=== PATIENT | female | born 1965 | race Caucasian/White ===

== ENCOUNTER 2023-06-10 13:06 | Inpatient (IN) | payer SELFPAY ==
[~2023-06-10] VITALS: Ht 167.6 cm; Wt 72.0 kg
[2023-06-10] MEDS ORDERED: metoclopramide 5 mg/ml inj IV ONE (13:45)
[2023-06-10] MEDS ORDERED: diphenhydrAMINE 50 mg/ml inj IV ONE (13:45)
[2023-06-10] MEDS ORDERED: normal saline 1000ml 1,000 ML IV ONE ×2 (14:00→14:15)
[2023-06-10] MEDS ORDERED: LORazepam 2 mg/ml vial IV ONE (14:00)
[2023-06-10] MEDS ORDERED: normal saline 1000ML IV soln IVB ONE ×2 (14:35)
[2023-06-10 14:56] LABS: BASOPHILS % (AUTO) 0.3 % (0-1); EOSINOPHILS % (AUTO) 0 % (0-6); HEMATOCRIT 36.9 % (35.0-45.0); HEMOGLOBIN 12.5 g/dl (12.0-16.0); LYMPHOCYTES # (AUTO) 0.2 X10'3 (1.1-4.8); LYMPHOCYTES % (AUTO) 3.2 % (21-51); MEAN CORPUSCULAR HEMOGLOBIN 34.3 PG (27.0-31.0); MEAN CORPUSCULAR HGB CONC 33.9 g/dL (33.0-36.5); MONOCYTES # (AUTO) 0.4 X10'3 (0-0.9); MONOCYTES % (AUTO) 6.2 % (2-12); NEUTROPHILS # (AUTO) 5.4 X10'3 (1.8-7.7); NEUTROPHILS % (AUTO) 90.3 % (42-75); PLATELET COUNT 131 X10'3 (140-440); RED BLOOD COUNT 3.66 X10'6 (4.20-5.60); RED CELL DISTRIBUTION WIDTH 18.2 % (11.5-14.5)
[2023-06-10] MEDS ORDERED: ondansetron/PF 4mg/2ml inj IV ONE (15:05)
[2023-06-10] MEDS: LORazepam 2 mg/ml vial IV PRN ×4 (15:15→19:25)
[2023-06-10 15:25] LABS: ALANINE AMINOTRANSFERASE 461 U/L (12-78); ALBUMIN 3.6 G/DL (3.4-5.0); ALKALINE PHOSPHATASE 197 IU/L (46-116); ANION GAP 18 (8-16); ASPARTATE AMINO TRANSFERASE 766 U/L (10-37); BILIRUBIN,TOTAL 1.9 MG/DL (0.1-1.0); BLOOD UREA NITROGEN 14 MG/DL (7-18); BUN/CREATININE RATIO 9.9 (10.0-20.0); CHLORIDE 105 MMOL/L (99-107); CREATININE 1.42 MG/DL (0.40-0.90); GLUCOSE 113 MG/DL (70-104); POTASSIUM 3.3 MMOL/L (3.5-5.1); SODIUM 142 MMOL/L (135-145); TOTAL CARBON DIOXIDE 19.2 MMOL/L (24-32); TOTAL PROTEIN 7.2 G/DL (6.4-8.2); eCRCL 40 ML/MIN; eGFR 38 ML/MIN
[2023-06-10 15:38] LABS: ETHANOL < 10 MG/DL (<10); PRO BRAIN NATRIURETIC PEPTIDE 714 PG/ML (0-125)
[2023-06-10] MEDS ORDERED: phenobarbital inj 130 MG in normal saline 100ml IV soln 99 ML IV ONE (17:15)
[2023-06-10] MEDS ORDERED: magnesium 4gm in 100ml NS 100 ML IV PRN (17:45)
[2023-06-10] MEDS ORDERED: docusate sod 100mg capsule PO PRN (17:45)
[2023-06-10] MEDS ORDERED: ondansetron/PF 4mg/2ml inj IV PRN (17:45)
[2023-06-10] MEDS ORDERED: cloNIDine 0.1 mg tablet PO PRN (17:45)
[2023-06-10] MEDS ORDERED: dicyclomine 10 MG capsule PO PRN (17:45)
[2023-06-10] MEDS ORDERED: mag hydrox/Alum hydrox/simeth 30ml oral suspension PO PRN (17:45)
[2023-06-10] MEDS ORDERED: magnesium hydroxide 30ml (MOM) UD suspension PO PRN (17:45)
[2023-06-10] MEDS ORDERED: acetaminophen 325mg tablet PO PRN (17:45)
[2023-06-10] MEDS ORDERED: potassium Cl 20 mEq SR tablet PO PRN ×2 (17:45)
[2023-06-10] MEDS ORDERED: PERFLUTREN PROTEIN-A MICROSPHR (Optison) 0.22 MG/ML 3ML VIAL IV ONE (18:30)
[2023-06-10] MEDS: normal saline 1000ml 1,000 ML IV SCH (18:56)
[2023-06-10] MEDS: carVEDilol 3.125mg tablet PO SCH ×2 (20:00→20:56)
[2023-06-10] MEDS: chlordiazePOXIDE 25mg capsule PO PRN (20:36)
[2023-06-10] MEDS: thiamine 100mg/ml 2ml inj. IV SCH (20:37)
[2023-06-10] MEDS ORDERED: thiamine 100mg/ml 2ml inj. IV SCH (21:00)
[2023-06-11] MEDS: hydrALAZINE 20mg/ml inj. IV PRN (02:02)
[2023-06-11] MEDS: LORazepam 2 mg/ml vial IV PRN ×4 (02:33→22:05)
[2023-06-11] MEDS: normal saline 1000ml 1,000 ML IV SCH ×2 (05:51→12:03)
[2023-06-11 07:04] LABS: BASOPHILS % (AUTO) 0.3 % (0-1); EOSINOPHILS % (AUTO) 0.4 % (0-6); HEMATOCRIT 34.5 % (35.0-45.0); HEMOGLOBIN 11.9 g/dl (12.0-16.0); LYMPHOCYTES # (AUTO) 0.7 X10'3 (1.1-4.8); LYMPHOCYTES % (AUTO) 19.7 % (21-51); MEAN CORPUSCULAR HEMOGLOBIN 34.4 PG (27.0-31.0); MEAN CORPUSCULAR HGB CONC 34.3 g/dL (33.0-36.5); MEAN CORPUSCULAR VOLUME 100.1 FL (78-98); MEAN PLATELET VOLUME 8.2 FL (7.4-10.4); MONOCYTES # (AUTO) 0.4 X10'3 (0-0.9); MONOCYTES % (AUTO) 10.6 % (2-12); NEUTROPHILS # (AUTO) 2.4 X10'3 (1.8-7.7); PLATELET COUNT 89 X10'3 (140-440); RED BLOOD COUNT 3.45 X10'6 (4.20-5.60); RED CELL DISTRIBUTION WIDTH 18.6 % (11.5-14.5); WHITE BLOOD COUNT 3.5 X10'3 (4.5-11.0)
[2023-06-11 07:41] LABS: % IRON SATURATION 69 % (11-46); IRON 178 UG/DL (49-151); TOTAL IRON BINDING CAPACITY 259 UG/DL (259-388)
[2023-06-11] MEDS ORDERED: atenolol 50mg tablet PO SCH (08:00)
[2023-06-11] MEDS ORDERED: multivitamins, therapeutics tablet PO SCH (08:00)
[2023-06-11 08:07] LABS: PROTHROMBIN TIME 10.9 SECONDS (9.0-12.0)
[2023-06-11 08:21] LABS: ALANINE AMINOTRANSFERASE 379 U/L (12-78); ALBUMIN 3.4 G/DL (3.4-5.0); ALKALINE PHOSPHATASE 181 IU/L (46-116); AMYLASE 63 U/L (25-115); ANION GAP 12 (8-16); ASPARTATE AMINO TRANSFERASE 745 U/L (10-37); BILIRUBIN,TOTAL 2.3 MG/DL (0.1-1.0); BLOOD UREA NITROGEN 11 MG/DL (7-18); BUN/CREATININE RATIO 10.6 (10.0-20.0); CALCIUM 8.2 MG/DL (8.5-10.1); CHLORIDE 103 MMOL/L (99-107); CREATININE 1.04 MG/DL (0.40-0.90); GLUCOSE 83 MG/DL (70-104); LIPASE 87 U/L (16-77); MAGNESIUM 1.1 MG/DL (1.5-2.4); PHOSPHORUS 2.1 MG/DL (2.3-4.5); SODIUM 139 MMOL/L (135-145); TOTAL CARBON DIOXIDE 24.5 MMOL/L (24-32); TOTAL PROTEIN 6.8 G/DL (6.4-8.2); eCRCL 55 ML/MIN; eGFR 54 ML/MIN
[2023-06-11 08:56] LABS: POTASSIUM 2.6 MMOL/L (3.5-5.1)
[2023-06-11 08:58] LABS: FERRITIN 1967 NG/ML (8-252)
[2023-06-11] MEDS: thiamine 100mg/ml 2ml inj. IV SCH ×3 (09:20→20:18)
[2023-06-11] MEDS: chlordiazePOXIDE 25mg capsule PO PRN (09:21)
[2023-06-11] MEDS: lisinopril 10 MG tablet PO SCH (09:21)
[2023-06-11] MEDS: magnesium Cl slow-release 64mg tablet PO PRN ×2 (09:21→20:19)
[2023-06-11] MEDS: multivitamins, therapeutics tablet PO SCH (09:22)
[2023-06-11] MEDS: carVEDilol 3.125mg tablet PO SCH ×2 (09:22→20:17)
[2023-06-11] MEDS: NIFEdipine XL 30mg tablet PO SCH (09:22)
[2023-06-11] MEDS: folic acid 1mg/0.2ml inj IV SCH (10:24)
[2023-06-11] MEDS: duloxetine 30mg CAPSULE.DR PO SCH (10:25)
[2023-06-11] MEDS: potassium Cl 40MEQ/1/2NS 520ml 520 ML IV PRN ×2 (12:02→21:59)
[2023-06-11] MEDS ORDERED: NALT50TA PO (12:18)
[2023-06-11] MEDS ORDERED: HYDR12.55 PO (12:18)
[2023-06-11] MEDS ORDERED: DULO60CA65 PO (12:18)
[2023-06-11] MEDS ORDERED: QUET50TA24 PO (12:18)
[2023-06-11] MEDS ORDERED: BUPR300T86 PO (12:18)
[2023-06-11] MEDS ORDERED: CARV3.122 PO (12:18)
[2023-06-11] MEDS ORDERED: LISI20TA28 PO (12:18)
[2023-06-11] MEDS ORDERED: NIFE-34 PO (12:18)
[2023-06-11] MEDS ORDERED: folic acid 1mg/0.2ml inj IV SCH (15:05)
[2023-06-11] MEDS ORDERED: dextrose 50%-water 50ml dispensing syringe IV PRN (19:30)
[2023-06-11] MEDS ORDERED: haloperidol lactate 5mg/ml inj IM PRN (19:30)
[2023-06-11 20:18] VITALS: BP 147/88; PULSE 87; RESP 16; TEMP 98.3; O2SAT 99
[2023-06-11 22:00] VITALS: BP 177/101; PULSE 77; RESP 14; TEMP 97.8; O2SAT 96
[2023-06-11] MEDS: chlordiazePOXIDE 25mg capsule PO SCH (23:03)
[2023-06-12] MEDS: LORazepam 2 mg/ml vial IV PRN ×5 (00:21→23:16)
[2023-06-12] MEDS: haloperidol 5mg tablet PO PRN (01:17)
[2023-06-12] MEDS: normal saline 1000ml 1,000 ML IV SCH ×2 (01:51→11:51)
[2023-06-12 06:00] VITALS: BP 134/77; PULSE 68; RESP 16; TEMP 97.5; O2SAT 91
[2023-06-12 09:51] LABS: INR 1.1 INR; PROTHROMBIN TIME 11.5 SECONDS (9.0-12.0)
[2023-06-12 09:55] LABS: BASOPHILS % (AUTO) 0.7 % (0-1); EOSINOPHILS # (AUTO) 0.1 X10'3 (0-0.9); EOSINOPHILS % (AUTO) 2.1 % (0-6); HEMATOCRIT 33.2 % (35.0-45.0); HEMOGLOBIN 11.2 g/dl (12.0-16.0); LYMPHOCYTES % (AUTO) 28.9 % (21-51); MEAN CORPUSCULAR HEMOGLOBIN 34.3 PG (27.0-31.0); MEAN CORPUSCULAR HGB CONC 33.8 g/dL (33.0-36.5); MEAN CORPUSCULAR VOLUME 101.4 FL (78-98); MEAN PLATELET VOLUME 9.7 FL (7.4-10.4); MONOCYTES # (AUTO) 0.3 X10'3 (0-0.9); MONOCYTES % (AUTO) 7.5 % (2-12); NEUTROPHILS % (AUTO) 60.8 % (42-75); PLATELET COUNT 72 X10'3 (140-440); RED BLOOD COUNT 3.28 X10'6 (4.20-5.60); RED CELL DISTRIBUTION WIDTH 18.8 % (11.5-14.5); WHITE BLOOD COUNT 3.3 X10'3 (4.5-11.0)
[2023-06-12 10:05] LABS: ALANINE AMINOTRANSFERASE 293 U/L (12-78); ALBUMIN/GLOBULIN RATIO 0.9 (1.1-1.5); ALKALINE PHOSPHATASE 157 IU/L (46-116); AMYLASE 47 U/L (25-115); ANION GAP 12 (8-16); ASPARTATE AMINO TRANSFERASE 354 U/L (10-37); BILIRUBIN,TOTAL 1.9 MG/DL (0.1-1.0); BLOOD UREA NITROGEN 8 MG/DL (7-18); BUN/CREATININE RATIO 8.6 (10.0-20.0); CALCIUM 7.9 MG/DL (8.5-10.1); CHLORIDE 102 MMOL/L (99-107); CREATININE 0.93 MG/DL (0.40-0.90); GLUCOSE 153 MG/DL (70-104); LIPASE 68 U/L (16-77); MAGNESIUM 1.2 MG/DL (1.5-2.4); PHOSPHORUS 2.4 MG/DL (2.3-4.5); SODIUM 136 MMOL/L (135-145); TOTAL CARBON DIOXIDE 22.5 MMOL/L (24-32); TOTAL PROTEIN 6.3 G/DL (6.4-8.2); eCRCL 61 ML/MIN; eGFR 62 ML/MIN
[2023-06-12 10:10] LABS: POTASSIUM 2.8 MMOL/L (3.5-5.1)
[2023-06-12 10:45] VITALS: RESP 18; O2SAT 99
[2023-06-12] MEDS ORDERED: bisacodyl 10mg suppository rectal RC PRN (10:50)
[2023-06-12] MEDS ORDERED: potassium Cl 20 mEq SR tablet PO PRN (10:50)
[2023-06-12] MEDS ORDERED: magnesium hydroxide 30ml (MOM) UD suspension PO PRN (10:50)
[2023-06-12] MEDS ORDERED: potassium Cl 40MEQ/1/2NS 520ml 520 ML IV PRN (10:50)
[2023-06-12] MEDS ORDERED: magnesium 2GM in 50ml NS 50 ML IV PRN (10:50)
[2023-06-12] MEDS: magnesium Cl slow-release 64mg tablet PO PRN ×2 (11:00→17:32)
[2023-06-12] MEDS: potassium Cl 20 mEq SR tablet PO PRN ×3 (11:00→20:25)
[2023-06-12] MEDS: carVEDilol 3.125mg tablet PO SCH ×2 (11:00→20:29)
[2023-06-12] MEDS: folic acid 1mg/0.2ml inj IV SCH (11:00)
[2023-06-12] MEDS: multivitamins, therapeutics tablet PO SCH (11:00)
[2023-06-12] MEDS: chlordiazePOXIDE 25mg capsule PO SCH ×3 (11:01→20:28)
[2023-06-12] MEDS: NIFEdipine XL 30mg tablet PO SCH (11:01)
[2023-06-12] MEDS: thiamine 100mg/ml 2ml inj. IV SCH ×3 (11:01→21:35)
[2023-06-12] MEDS: duloxetine 30mg CAPSULE.DR PO SCH (11:02)
[2023-06-12] MEDS: lisinopril 10 MG tablet PO SCH (11:02)
[2023-06-12 11:48] LABS: BILIRUBIN,URINE NEGATIVE (Neg); CLARITY,URINE CLEAR (Clear); COLOR,URINE YELLOW (Yellow); GLUCOSE, URINE NEGATIVE (Neg); KETONES,URINE NEGATIVE (Neg); LEUKOCYTE ESTERASE ,URINE NEGATIVE (Neg); NITRITES, URINE NEGATIVE (Neg); OCCULT BLOOD,URINE NEGATIVE (Neg); PROTEIN,URINE NEGATIVE (Neg)
[2023-06-12 11:53] LABS: UA COLLECTION TYPE NON-SPECIFIED
[2023-06-12] MEDS: hydrALAZINE 20mg/ml inj. IV PRN (17:32)
[2023-06-12] MEDS: HYDROcodone/acetaminophen 10/325mg tab PO PRN (17:39)
[2023-06-12 18:00] VITALS: BP 168/100; PULSE 89; RESP 18; TEMP 98.5; O2SAT 99
[2023-06-12 20:00] VITALS: RESP 18; O2SAT 90
[2023-06-12] MEDS: K and/or MAG REPLACEMENT MC SCH (20:00)
[2023-06-12] MEDS: buPROPion SR 150mg tablet PO SCH (20:25)
[2023-06-12] MEDS: QUEtiapine 25mg tablet PO SCH (20:28)
[2023-06-12 22:00] VITALS: BP 120/91; PULSE 82; RESP 17; TEMP 97.8; O2SAT 97
[2023-06-13] VITALS (8 sets, daily range): BP systolic 129–154; BP diastolic 75–85; PULSE 59–88; RESP 17–22; TEMP 97.5–97.9; O2SAT 97–98
[2023-06-13] MEDS: normal saline 1000ml 1,000 ML IV SCH ×3 (00:51→20:13)
[2023-06-13 06:07] LABS: HEMATOCRIT 30.6 % (35.0-45.0); HEMOGLOBIN 10.3 g/dl (12.0-16.0); MEAN CORPUSCULAR VOLUME 104.1 FL (78-98); RED BLOOD COUNT 2.94 X10'6 (4.20-5.60); WHITE BLOOD COUNT 3.6 X10'3 (4.5-11.0)
[2023-06-13 06:08] LABS: EOSINOPHILS # (AUTO) 0.1 X10'3 (0-0.9); EOSINOPHILS % (AUTO) 1.9 % (0-6); LYMPHOCYTES % (AUTO) 28.6 % (21-51); MEAN CORPUSCULAR HEMOGLOBIN 34.9 PG (27.0-31.0); MEAN CORPUSCULAR HGB CONC 33.5 g/dL (33.0-36.5); MEAN PLATELET VOLUME 9.2 FL (7.4-10.4); MONOCYTES # (AUTO) 0.3 X10'3 (0-0.9); NEUTROPHILS # (AUTO) 2.1 X10'3 (1.8-7.7); NEUTROPHILS % (AUTO) 59.5 % (42-75); PLATELET COUNT 77 X10'3 (140-440); RED CELL DISTRIBUTION WIDTH 20.1 % (11.5-14.5)
[2023-06-13 06:15] LABS: PROTHROMBIN TIME 10.9 SECONDS (9.0-12.0)
[2023-06-13 06:33] LABS: ALANINE AMINOTRANSFERASE 208 U/L (12-78); ALBUMIN 2.8 G/DL (3.4-5.0); ALKALINE PHOSPHATASE 140 IU/L (46-116); AMYLASE 49 U/L (25-115); ANION GAP 10 (8-16); ASPARTATE AMINO TRANSFERASE 176 U/L (10-37); BLOOD UREA NITROGEN 11 MG/DL (7-18); BUN/CREATININE RATIO 17.2 (10.0-20.0); CALCIUM 7.8 MG/DL (8.5-10.1); CHLORIDE 108 MMOL/L (99-107); CREATININE 0.64 MG/DL (0.40-0.90); GLUCOSE 80 MG/DL (70-104); LIPASE 65 U/L (16-77); MAGNESIUM 1.5 MG/DL (1.5-2.4); PHOSPHORUS 2.5 MG/DL (2.3-4.5); POTASSIUM 3.7 MMOL/L (3.5-5.1); SODIUM 139 MMOL/L (135-145); TOTAL CARBON DIOXIDE 20.6 MMOL/L (24-32); TOTAL PROTEIN 5.7 G/DL (6.4-8.2); eCRCL 89 ML/MIN; eGFR > 90 ML/MIN
[2023-06-13] MEDS: K and/or MAG REPLACEMENT MC SCH ×2 (08:00→20:00)
[2023-06-13] MEDS: folic acid 1mg/0.2ml inj IV SCH (08:46)
[2023-06-13] MEDS: multivitamins, therapeutics tablet PO SCH (08:47)
[2023-06-13] MEDS: thiamine 100mg/ml 2ml inj. IV SCH ×2 (08:47→13:41)
[2023-06-13] MEDS: duloxetine 30mg CAPSULE.DR PO SCH (08:48)
[2023-06-13] MEDS: lisinopril 10 MG tablet PO SCH (08:48)
[2023-06-13] MEDS: chlordiazePOXIDE 25mg capsule PO SCH ×3 (08:48→20:12)
[2023-06-13] MEDS: NIFEdipine XL 30mg tablet PO SCH (08:48)
[2023-06-13] MEDS: buPROPion SR 150mg tablet PO SCH ×2 (08:48→20:12)
[2023-06-13] MEDS: carVEDilol 3.125mg tablet PO SCH ×2 (08:48→20:12)
[2023-06-13] MEDS: LORazepam 2 mg/ml vial IV PRN ×4 (09:01→16:39)
[2023-06-13] MEDS: HYDROcodone/acetaminophen 10/325mg tab PO PRN ×3 (11:59→23:46)
[2023-06-13] MEDS ORDERED: LORazepam 2 mg/ml vial IV PRN (19:30)
[2023-06-13] MEDS: QUEtiapine 25mg tablet PO SCH (20:12)
[2023-06-13] MEDS: LORazepam 1 MG tablet PO PRN (23:47)
[2023-06-14] MEDS: normal saline 1000ml 1,000 ML IV SCH ×3 (00:10→23:48)
[2023-06-14] MEDS: LORazepam 1 MG tablet PO PRN ×6 (02:17→20:43)
[2023-06-14] MEDS: HYDROcodone/acetaminophen 10/325mg tab PO PRN ×2 (05:49→23:47)
[2023-06-14 06:00] VITALS: BP 145/77; PULSE 79; RESP 25; TEMP 97.7; O2SAT 98
[2023-06-14 06:30] VITALS: O2SAT 98
[2023-06-14 06:30] LABS: PROTHROMBIN TIME 10.7 SECONDS (9.0-12.0)
[2023-06-14 06:47] LABS: BASOPHILS % (AUTO) 0.8 % (0-1); EOSINOPHILS # (AUTO) 0.1 X10'3 (0-0.9); EOSINOPHILS % (AUTO) 2.3 % (0-6); HEMATOCRIT 30.7 % (35.0-45.0); HEMOGLOBIN 10.3 g/dl (12.0-16.0); LYMPHOCYTES # (AUTO) 0.9 X10'3 (1.1-4.8); LYMPHOCYTES % (AUTO) 30.6 % (21-51); MEAN CORPUSCULAR HEMOGLOBIN 34.9 PG (27.0-31.0); MEAN CORPUSCULAR HGB CONC 33.5 g/dL (33.0-36.5); MEAN CORPUSCULAR VOLUME 104.1 FL (78-98); MONOCYTES # (AUTO) 0.4 X10'3 (0-0.9); MONOCYTES % (AUTO) 12.5 % (2-12); NEUTROPHILS # (AUTO) 1.6 X10'3 (1.8-7.7); NEUTROPHILS % (AUTO) 53.8 % (42-75); PLATELET COUNT 75 X10'3 (140-440); RED BLOOD COUNT 2.95 X10'6 (4.20-5.60); RED CELL DISTRIBUTION WIDTH 20.9 % (11.5-14.5)
[2023-06-14 06:48] LABS: ALANINE AMINOTRANSFERASE 166 U/L (12-78); ALBUMIN 2.9 G/DL (3.4-5.0); ALKALINE PHOSPHATASE 142 IU/L (46-116); AMYLASE 57 U/L (25-115); ANION GAP 9 (8-16); ASPARTATE AMINO TRANSFERASE 92 U/L (10-37); BILIRUBIN,TOTAL 0.7 MG/DL (0.1-1.0); BLOOD UREA NITROGEN 9 MG/DL (7-18); BUN/CREATININE RATIO 12.3 (10.0-20.0); CALCIUM 8.1 MG/DL (8.5-10.1); CHLORIDE 109 MMOL/L (99-107); CREATININE 0.73 MG/DL (0.40-0.90); GLUCOSE 84 MG/DL (70-104); LIPASE 62 U/L (16-77); MAGNESIUM 1.4 MG/DL (1.5-2.4); PHOSPHORUS 3.5 MG/DL (2.3-4.5); POTASSIUM 3.5 MMOL/L (3.5-5.1); SODIUM 141 MMOL/L (135-145); TOTAL CARBON DIOXIDE 23.2 MMOL/L (24-32); TOTAL PROTEIN 5.9 G/DL (6.4-8.2); eCRCL 78 ML/MIN; eGFR 82 ML/MIN
[2023-06-14 08:00] VITALS: RESP 25; O2SAT 98
[2023-06-14] MEDS: K and/or MAG REPLACEMENT MC SCH ×2 (08:00→20:00)
[2023-06-14] MEDS ORDERED: sodium bicarbonate (8.4%) inj. 50 MEQ in dextrose 5%-water 1,000 ML IV SCH (08:05)
[2023-06-14 08:22] LABS: TOTAL CELLS COUNTED 100
[2023-06-14 08:23] LABS: ANISOCYTOSIS 3+; PLATELET ESTIMATE DECREASED
[2023-06-14] MEDS: multivitamins, therapeutics tablet PO SCH (08:32)
[2023-06-14] MEDS: duloxetine 30mg CAPSULE.DR PO SCH (08:32)
[2023-06-14] MEDS: buPROPion SR 150mg tablet PO SCH ×2 (08:32→19:31)
[2023-06-14] MEDS: NIFEdipine XL 30mg tablet PO SCH (08:32)
[2023-06-14] MEDS: lisinopril 10 MG tablet PO SCH (08:33)
[2023-06-14] MEDS: carVEDilol 3.125mg tablet PO SCH ×2 (08:33→19:31)
[2023-06-14] MEDS: chlordiazePOXIDE 25mg capsule PO SCH ×2 (08:33→19:31)
[2023-06-14] MEDS ORDERED: DEXTROSE 15 GM of carb/4 tabs (each vial/BOTTLE has 4 tablets) PO PRN ×2 (08:45)
[2023-06-14] MEDS ORDERED: dextrose 50%-water 50ml dispensing syringe IV PRN (08:45)
[2023-06-14 10:00] VITALS: BP 149/86; PULSE 74; RESP 14; TEMP 97.4; O2SAT 99
[2023-06-14 18:00] VITALS: BP 172/81; PULSE 70; RESP 15; TEMP 98.3; O2SAT 99
[2023-06-14] MEDS: QUEtiapine 25mg tablet PO SCH (20:43)
[2023-06-14 22:00] VITALS: BP 158/70; PULSE 72; RESP 18; TEMP 98.2; O2SAT 99
[2023-06-14] MEDS: haloperidol 5mg tablet PO PRN (23:47)
[2023-06-15 06:00] VITALS: BP 173/91; PULSE 69; RESP 14; TEMP 97.5; O2SAT 99
[2023-06-15 07:00] LABS: HBSAG SCREEN Negative (Negative); HEP A AB, IGM Negative (Negative); HEP B CORE AB, IGM Negative (Negative); HEPATITIS C VIRUS ANTIBODY Non Reactive (Non Reactive)
[2023-06-15 07:12] LABS: BASOPHILS % (AUTO) 0.8 % (0-1); EOSINOPHILS # (AUTO) 0.1 X10'3 (0-0.9); EOSINOPHILS % (AUTO) 1.7 % (0-6); HEMATOCRIT 31.5 % (35.0-45.0); HEMOGLOBIN 10.7 g/dl (12.0-16.0); LYMPHOCYTES # (AUTO) 0.8 X10'3 (1.1-4.8); LYMPHOCYTES % (AUTO) 26.2 % (21-51); MEAN CORPUSCULAR HEMOGLOBIN 35.4 PG (27.0-31.0); MEAN PLATELET VOLUME 8.6 FL (7.4-10.4); MONOCYTES # (AUTO) 0.5 X10'3 (0-0.9); MONOCYTES % (AUTO) 15.8 % (2-12); NEUTROPHILS # (AUTO) 1.7 X10'3 (1.8-7.7); NEUTROPHILS % (AUTO) 55.5 % (42-75); PLATELET COUNT 88 X10'3 (140-440); RED BLOOD COUNT 3.03 X10'6 (4.20-5.60); RED CELL DISTRIBUTION WIDTH 21.1 % (11.5-14.5); WHITE BLOOD COUNT 3.1 X10'3 (4.5-11.0)
[2023-06-15 07:20] LABS: PROTHROMBIN TIME 10.7 SECONDS (9.0-12.0)
[2023-06-15 07:29] LABS: ALANINE AMINOTRANSFERASE 135 U/L (12-78); ALBUMIN/GLOBULIN RATIO 0.9 (1.1-1.5); ALKALINE PHOSPHATASE 135 IU/L (46-116); AMYLASE 66 U/L (25-115); ANION GAP 10 (8-16); ASPARTATE AMINO TRANSFERASE 50 U/L (10-37); BILIRUBIN,TOTAL 0.7 MG/DL (0.1-1.0); BLOOD UREA NITROGEN 6 MG/DL (7-18); BUN/CREATININE RATIO 8.6 (10.0-20.0); CALCIUM 8.5 MG/DL (8.5-10.1); CHLORIDE 108 MMOL/L (99-107); GLUCOSE 79 MG/DL (70-104); LIPASE 40 U/L (16-77); MAGNESIUM 1.5 MG/DL (1.5-2.4); PHOSPHORUS 4.1 MG/DL (2.3-4.5); POTASSIUM 3.3 MMOL/L (3.5-5.1); SODIUM 141 MMOL/L (135-145); TOTAL CARBON DIOXIDE 23.1 MMOL/L (24-32); TOTAL PROTEIN 6.3 G/DL (6.4-8.2); eCRCL 81 ML/MIN; eGFR 86 ML/MIN
[2023-06-15 07:59] LABS: ANISOCYTOSIS 3+; PLATELET ESTIMATE DECREASED
[2023-06-15 08:00] VITALS: RESP 64; O2SAT 100
[2023-06-15] MEDS: multivitamins, therapeutics tablet PO SCH (09:07)
[2023-06-15] MEDS: buPROPion SR 150mg tablet PO SCH ×2 (09:07→20:07)
[2023-06-15] MEDS: lisinopril 10 MG tablet PO SCH (09:07)
[2023-06-15] MEDS: NIFEdipine XL 30mg tablet PO SCH (09:08)
[2023-06-15] MEDS: chlordiazePOXIDE 25mg capsule PO SCH (09:08)
[2023-06-15] MEDS: carVEDilol 3.125mg tablet PO SCH ×2 (09:08→20:07)
[2023-06-15] MEDS: duloxetine 30mg CAPSULE.DR PO SCH (09:08)
[2023-06-15] MEDS: K and/or MAG REPLACEMENT MC SCH ×2 (09:14→20:00)
[2023-06-15 10:00] VITALS: BP 170/87; PULSE 64; RESP 18; TEMP 97.8; O2SAT 100
[2023-06-15] MEDS ORDERED: potassium Cl 40MEQ/1/2NS 520ml 520 ML IV PRN ×2 (13:45)
[2023-06-15] MEDS ORDERED: potassium Cl 20 mEq SR tablet PO PRN (13:45)
[2023-06-15] MEDS: potassium Cl 20 mEq SR tablet PO PRN ×2 (14:12→20:07)
[2023-06-15] MEDS ORDERED: lactose-reduced food (Ensure Enlive) - 237ml bottle PO SCH (17:30)
[2023-06-15 18:00] VITALS: BP 165/108; PULSE 91; RESP 16; TEMP 97.5; O2SAT 99
[2023-06-15] MEDS ORDERED: LORazepam 2 mg/ml vial IV PRN (19:30)
[2023-06-15] MEDS: QUEtiapine 25mg tablet PO SCH (20:07)
[2023-06-15] MEDS: LORazepam 1 MG tablet PO PRN (20:08)
[2023-06-15 20:20] VITALS: RESP 16; O2SAT 99
[2023-06-15 22:00] VITALS: BP 156/85; PULSE 76; RESP 23; TEMP 97.2; O2SAT 100
[2023-06-16 06:00] VITALS: BP 159/76; PULSE 79; RESP 12; TEMP 98.6; O2SAT 96
[2023-06-16] MEDS: HYDROcodone/acetaminophen 10/325mg tab PO PRN (06:01)
[2023-06-16] MEDS: LORazepam 1 MG tablet PO PRN (06:03)
[2023-06-16 08:00] VITALS: RESP 12; O2SAT 96
[2023-06-16] MEDS ORDERED: folic acid 1mg tablet PO SCH (08:00)
[2023-06-16] MEDS ORDERED: thiamine 100mg tablet PO SCH (08:00)
[2023-06-16] MEDS: carVEDilol 3.125mg tablet PO SCH (08:39)
[2023-06-16] MEDS: duloxetine 30mg CAPSULE.DR PO SCH (08:39)
[2023-06-16] MEDS: chlordiazePOXIDE 25mg capsule PO SCH (08:39)
[2023-06-16] MEDS: buPROPion SR 150mg tablet PO SCH (08:39)
[2023-06-16] MEDS: multivitamins, therapeutics tablet PO SCH (08:39)
[2023-06-16] MEDS: NIFEdipine XL 30mg tablet PO SCH (08:39)
[2023-06-16] MEDS: lisinopril 10 MG tablet PO SCH (08:40)
[2023-06-16 10:00] VITALS: BP 117/86; PULSE 75; RESP 16; TEMP 98; O2SAT 98
[2023-06-16 10:47] LABS: BILIRUBIN,URINE NEGATIVE (Neg); CLARITY,URINE SLIGHTLY CLOUDY (Clear); COLOR,URINE YELLOW (Yellow); GLUCOSE, URINE NEGATIVE (Neg); KETONES,URINE NEGATIVE (Neg); LEUKOCYTE ESTERASE ,URINE MODERATE (Neg); NITRITES, URINE NEGATIVE (Neg); OCCULT BLOOD,URINE NEGATIVE (Neg); PROTEIN,URINE NEGATIVE (Neg); UROBILINOGEN,URINE 0.2 E.U/dL (0.2-1.0)
[2023-06-16 10:56] LABS: UA COLLECTION TYPE CLN CATCH MIDSTREAM
[2023-06-16 11:10] LABS: SQUAMOUS EPITHELIAL CELL,UR NONE SEEN /LPF (FEW)
[2023-06-16 11:11] LABS: BACTERIA,URINE 3+ /HPF (Neg); RBC,URINE NONE SEEN /HPF (0-2)
[2023-06-16] MEDS ORDERED: MULT-1085 PO (13:06)
[2023-06-16] MEDS ORDERED: THIA50TA10 PO (13:06)
[2023-06-16] MEDS ORDERED: NITR100C6 PO (13:06)
[2023-06-16] MEDS ORDERED: FOLI1TAB27 PO (13:06)
[2023-06-16] MEDS ORDERED: CHLO25CA10 PO (13:06)
== END 2023-06-16 14:00 | disposition home or self-care (01) | DRG 304 ==
LOC: ER 13:07 → ED HOLD 18:04 → ORTHO 4S 06-11 17:55
PROVIDERS: ADMIT Family Medicine; ATTEND Family Medicine
DX: I16.0 Hypertensive urgency (principal); N17.0 Acute kidney failure with tubular necrosis; N39.0 Urinary tract infection, site not specified; F10.239 Alcohol dependence with withdrawal, unspecified; F32.A Depression, unspecified; I10 Essential (primary) hypertension; D75.89 Other specified diseases of blood and blood-forming organs; D69.6 Thrombocytopenia, unspecified; E87.6 Hypokalemia; R74.01 Elevation of levels of liver transaminase levels; K76.0 Fatty (change of) liver, not elsewhere classified; Y90.0 Blood alcohol level of less than 20 mg/100 ml; E83.119 Hemochromatosis, unspecified; Z82.49 Family history of ischemic heart disease and other diseases of the circulatory system; Z98.84 Bariatric surgery status; Z88.8 Allergy status to other drugs, medicaments and biological substances
CPT/HCPCS: 36415; 71045; 76700; 80053; 80074; 80320; 81001; 81003; 82150; 82607; 82728; 82948; 83540; 83550; 83690; 83735; 83880; 84100; 84132; 84466; 84484; 85007; 85008; 85025; 85610; 87077; 87081; 87088; 87186; 93005; 93306; 97161; 97530; 99285; A4620; A6258; G0378; J0360; J1200; J2060; J2405; J2560; J2765; J3411; J3475; J3480; J3490; J7030

== ENCOUNTER 2023-12-15 22:30 | Emergency (ER) | payer MEDICAID, OTHER ==
[~2023-12-15] VITALS: Ht 170.2 cm; Wt 61.8 kg
[~2023-12-15 22:30] MED LIST: BUPR-564 PO; CARV3.122 PO; CHLO25CA10 PO; DULO60CA65 PO; FOLI1TAB27 PO; LISI20TA28 PO; MULT-1085 PO; NIFE-34 PO; NITR100C6 PO; QUET50TA24 PO; THIA50TA10 PO
[2023-12-15 23:05] VITALS: TEMP 98.4
[2023-12-16] MEDS ORDERED: SULF1TAB49 PO (03:03)
[2023-12-16 03:31] VITALS: BP_DIAS 117; RESP 16; O2SAT 97
[2023-12-16] MEDS: amLODIPine 5mg tablet PO ONE ×2 (03:39→03:47)
[2023-12-16] MEDS: ondansetron 4mg rapidly disintigrating tab PO ONE (03:46)
[2023-12-16 03:47] VITALS: BP_SYST 196; PULSE 96
[2023-12-16] MEDS: sulfamethoxazole/trimethoprim DS (800/160mg) tablet PO ONE (03:48)
== END 2023-12-16 03:57 | disposition home or self-care (01) ==
LOC: ER 22:31
DX: L01.09 Other impetigo (principal); Z88.8 Allergy status to other drugs, medicaments and biological substances; Z79.899 Other long term (current) drug therapy
CPT/HCPCS: 99284

== ENCOUNTER 2024-10-12 20:18 | Inpatient (IN) | payer MEDICAID ==
[~2024-10-12] VITALS: Ht 167.6 cm; Wt 59.1 kg
[~2024-10-12 20:18] MED LIST changes: +BUPR-480 PO; -BUPR-564 PO
[2024-10-12 20:56] LABS: BASOPHILS % (AUTO) 0.5 % (0-1); EOSINOPHILS % (AUTO) 0 % (0-6); HEMATOCRIT 37.7 % (35.0-45.0); HEMOGLOBIN 12.7 g/dl (12.0-16.0); MEAN CORPUSCULAR HEMOGLOBIN 38.9 PG (27.0-31.0); MEAN CORPUSCULAR HGB CONC 33.6 g/dL (33.0-36.5); MEAN CORPUSCULAR VOLUME 115.6 FL (78-98); MEAN PLATELET VOLUME 10.5 FL (7.4-10.4); MONOCYTES # (AUTO) 0.4 X10'3 (0-0.9); MONOCYTES % (AUTO) 7.7 % (2-12); NEUTROPHILS % (AUTO) 73.8 % (42-75); PLATELET COUNT 183 X10'3 (140-440); RED BLOOD COUNT 3.26 X10'6 (4.20-5.60); RED CELL DISTRIBUTION WIDTH 15.8 % (11.5-14.5); WHITE BLOOD COUNT 5.4 X10'3 (4.5-11.0)
--- NOTE | 2024-10-12 21:02 | ELECTROCARDIOGRAPH REPORT ---
[facility] Test Date: 2024-10-12 Test Time: 20:59:57 Pat Name: ERNESTINA PIERRE Department: [facility]- Patient ID: 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 Reading MD: Dr. Kingsley Barron Measurements Intervals [place] Rate: 105 P: 86 NH: 137 QRS: 88 QRSD: 147 T: 76 QT: 386 QTc: 511 Interpretive Statements Sinus tachycardia Right bundle branch block Electronically Signed On 10-14-2024 11:01:[address] Kingsley aBrron Please click the below link to view image of tracing.
[2024-10-12 21:05] LABS: CHLORIDE 105 MMOL/L (99-107); GLUCOSE 179 MG/DL (70-104); POTASSIUM 3.8 MMOL/L (3.5-5.1); SODIUM 141 MMOL/L (135-145); TOTAL CARBON DIOXIDE 23.6 MMOL/L (24-32)
[2024-10-12 21:06] LABS: ALBUMIN 2.9 G/DL (3.4-5.0); ANION GAP 12 (8-16); BLOOD UREA NITROGEN 3 MG/DL (7-18); BUN/CREATININE RATIO 2.5 (10.0-20.0); CALCIUM 8.3 MG/DL (8.5-10.1); CREATININE 1.21 MG/DL (0.40-0.90); ETHANOL < 10 MG/DL (<10); eCRCL 46 ML/MIN; eGFR 45 ML/MIN
--- NOTE | 2024-10-12 21:17 | RADIOLOGY REPORT ---
CT CT STROKE ALERT INDICATION: aloc COMPARISON: None TECHNIQUE: CT of the head without intravenous contrast. RADIATION DOSE: CTDIvol: mGy, DLP: mGy*cm FINDINGS: There is no evidence of intracranial hemorrhage, infarct, extra-axial collection, mass effect, midli ne shift, herniation or hydrocephalus. Mild chronic white matter microvascular ischemic change. The v entricles, sulci and cisterns are age appropriate. Visualized paranasal sinuses and mastoid air cells are clear. Soft tissues and osseous structures are unremarkable. IMPRESSION: No acute intracranial abnormality identified. Mild chronic white matter microvascular ischemic change .
--- NOTE | 2024-10-12 21:25 | RADIOLOGY REPORT ---
CHEST RADIOGRAPH Indication: aloc Technique: Single frontal view of the chest was obtained COMPARISON: DI CHEST,SINGLE VIEW on DOS: 06/10/23 FINDINGS: Lines and Tubes: None Lungs: Clear Pleura: No effusion. No pneumothorax. Cardiomediastinal contours: Unremarkable IMPRESSION: No abnormality demonstrated. No change compared to the prior chest x-ray from May 2023.
--- NOTE | 2024-10-12 21:29 | Physician Documentation ---
History of Present Illness ~ Chief Complaint: ALOC Stated Complaint: SEIZURES Time Seen by MD: 20:32 Primary Medical Doctor: KASIA Source: patient, EMS, EMS notes reviewed Mode of Arrival: EMS, Stretcher Exam Limitations: no limitations HPI Chief Complaint: Seizure Caveat: None Independent Historians: Paramedics History of Present Illness: Patient is a 59-year-old woman with known hypertension who presents via paramedics from home. or boyfriend called the paramedics he has he found her having a seizure and unresponsive that lasted approximately 5 minutes. When the paramedics found her she had a blood glucose of 160 and was awake alert oriented x2. Patient was mildly postictal. Patient does not have any history of seizures. Of note the patient has been drinking this product obtained from gas stations called [employer]. It contains 150 mg of KAVA and Alkaloids. She has been drinking a bottles of these a day that contains two fluid oz. Patient denies a headache. Patient complains of some dizziness that is worse when she lays on her right side. Review of systems: All systems were reviewed and are negative except for what is indicated in the history of present illness. Past Medical History: Hypertension Past Surgical History: None Social History: Medications: Reviewed as documented Nursing Notes Allergies: Reviewed as documented in Nursing Notes Medication Reconciliation Allergies: Coded Allergies: Heparin Analogues (Verified Allergy, Unknown, 10/12/24) prochlorperazine edisylate (Verified Allergy, Unknown, HALLUCINATIONS, 10/12/24) prochlorperazine maleate (Verified Allergy, Unknown, HALLUCINATIONS, ) Scheduled Bupropion HCl (Bupropion Xl), 1 TAB PO DAILY, (Reported) Carvedilol (Carvedilol), 1 TAB PO DAILY, (Reported) Chlordiazepoxide HCl (Chlordiazepoxide HCl), 50 MG PO DAILY Duloxetine HCl (Duloxetine HCl), 1 CAP PO DAILY, (Reported) Folic Acid* (Folic Acid*), 1 TAB PO DAILY Lisinopril (Lisinopril), 1 TAB PO DAILY, (Reported) Multivitamin (Multi Vitamin Daily), 1 TAB PO DAILY Nifedipine ER* (Nifedipine Er*), 1 TAB PO DAILY, (Reported) Nitrofurantoin Monohyd/M-Cryst (Macrobid 100 mg Capsule), 1 CAP PO Q12H Quetiapine Fumarate (Quetiapine Fumarate), 1 TAB PO HS, (Reported) Thiamine HCl (Vitamin B-1), 2 TAB PO DAILY Past Medical History Patient History: FH: HTN (hypertension) Review of Systems All Other Systems at this time: Reviewed and Negative ROS Patient denies any other acute symptoms other than above. All other systems are negative Physical Exam Vital Signs: RN Vital Signs have been reviewed: Yes, Temperature: 96.8, Source: Temporal, Heart Rate: 88, Respiratory Rate: 15, BP: 186/102, Pulse Oximetry: 99, Weight: 75.000 Pulse Oximetry Reflects: adequate oxygenation Physical Exam General Appearance: Moderate distress, acutely and chronically ill-appearing HEENT: Normal OP, moist oral mucosa, PERRL, EOMI, no oral trauma, head and face appear atraumatic Neck: supple, normal ROM, trachea midline Pulmonary: No respiratory distress, CTA, BS equal Cardiac: RRR, no murmur, rub or gallop, GI: nondistended, soft, nontender, normal bowel sounds, no guarding, no rebound Extremities: normal ROM, no swelling, non-tender Skin: intact, dry, warm, no rashes Neuro: AAOx3, speech is clear, no focal motor weakness Psych: normal affect, good eye contact, no apparent hallucination, normal speech Progress Results/Orders Results/Orders Orders - CHAPARRO MCLAUGHLIN MD Urinalysis, Cult If Indicated (10/12/24 20:38) Chest,Single View (10/12/24 20:38) Drug Screen, Urine (10/12/24 20:38) Monitor (10/12/24 20:38) Saline Lock (10/12/24 20:38) * Npo Until Passed Bedside Swa (10/12/24 20:38) Ct Stroke Alert (10/12/24 20:38) Nursing Swallow Screen (10/12/24 20:38) Page Hospitalist (10/12/24 22:42) Fill Out Med Reconciliation (10/12/24 22:42) Completed Orders - CHAPARRO MCLAUGHLIN MD Electrocardiogram (10/12/24 20:38) Cbc/Diff (10/12/24 20:38) Chest,Single View (10/12/24 20:38) Ethanol (10/12/24 20:38) Normal Saline 1000ml (Sodium Chloride 10 (10/12/24 20:40) BMP (10/12/24 20:38) Ct Stroke Alert (10/12/24 20:38) Ondansetron Inj. (Zofran 4mg/2ml Vial) (10/12/24 20:40) Meclizine Tablets (Antivert Tablet) (10/12/24 20:40) Diazepam Inj (Valium Inj) (10/12/24 21:20) Midazolam 1 Mg/Ml 2ml Inj. (Versed 1 Mg/ (10/12/24 21:30) CMP (10/12/24 21:33) Medications Received in ER Medications (Trade) Dose Ordered Sig/Juwan Route PRN Reason Start Time Stop Time Status Last Admin Dose Admin (sodium chloride 1000ml IV soln) 500 ml ONCE ONCE IVB 10/12/24 20:40 10/12/24 20:41 DC 10/12/24 21:32 500 ML (Zofran 4mg/2ml vial) 4 mg ONCE ONCE IV 10/12/24 20:40 10/12/24 20:44 DC 10/12/24 21:32 4 MG (Valium inj) 5 mg ONCE ONCE IV 10/12/24 21:20 10/12/24 21:21 DC 10/12/24 21:32 5 MG Vital Signs 10/12/24 10/12/24 10/12/24 10/12/24 20:50 21:00 21:30 22:00 Temp 96.8 Pulse 88 115 132 120 Resp 15 22 22 21 B/P (MAP) 186/102 176/98 (124) 167/98 (121) 145/92 (109) Pulse Ox 99 96 95 96 10/12/24 22:30 Pulse 118 Resp 13 B/P (MAP) 142/65 (90) Pulse Ox 100 Laboratory Tests Test 10/12/24 20:40 10/12/24 21:39 White Blood Count 5.4 Red Blood Count 3.26 L Hemoglobin 12.7 Hematocrit 37.7 Mean Corpuscular Volume 115.6 H Mean Corpuscular Hemoglobin 38.9 H Mean Corpuscular Hemoglobin Concent 33.6 Red Cell Distribution Width 15.8 H Platelet Count 183 Mean Platelet Volume 10.5 H Neutrophils (%) (Auto) 73.8 Lymphocytes (%) (Auto) 18.0 L Monocytes (%) (Auto) 7.7 Eosinophils (%) (Auto) 0 Basophils (%) (Auto) 0.5 Neutrophils # (Auto) 4.0 Lymphocytes # (Auto) 1.0 L Monocytes # (Auto) 0.4 Eosinophils # (Auto) 0.0 Basophils # (Auto) 0.0 CBC Comment Platelet Estimate Normal Red Blood Cell Morphology Perf Basophilic Stippling Anisocytosis 2+ Macrocytosis 2+ Sodium Level 141 141 Potassium Level 3.8 3.5 Chloride Level 105 103 Carbon Dioxide Level 23.6 L 16.8 L Anion Gap 12 21 H Blood Urea Nitrogen 3 L 3 L Creatinine 1.21 H 1.45 H Estimated GFR/1.73 m2 45 37 BUN/Creatinine Ratio 2.5 L 2.1 L Glucose Level 179 H 220 H Calcium Level 8.3 L 8.4 L Albumin 2.9 L 3.0 L Chemistry Comments Ethyl Alcohol Level < 10 Total Bilirubin 1.4 H Aspartate Amino Transf (AST/SGOT) 341 H Alanine Aminotransferase (ALT/SGPT) 158 H Alkaline Phosphatase 228 H Total Protein 6.4 Globulin 3.4 Albumin/Globulin Ratio 0.9 L Medical Decision Making Findings Differential diagnosis includes but isn't limited to: Alcohol withdrawal seizure, new onset seizure, status epilepticus, intracerebral hemorrhage, acute CVA, KAVA overdose, liver failure, electrolyte abnormalities, substance abuse EKG independent interpretation: Chest x-ray, single view, indication: Altered mental status Independent interpretation: Lungs are clear, normal mediastinum, normal cardiac silhouette, no acute cardiopulmonary process Laboratory data independent interpretation: CBC: Unremarkable CMP: Elevated AST, ALT and total bilirubin, elevated alk-phos Urinalysis: Pending Toxicology: Ethanol less than 10, urine drug screen is pending Emergency department course/medical decision-making: Patient evaluated immediately upon arrival and poison control was called. They do not have anything listed on the PILI Chill and KAVA alkaloids. 9:24 p.m.: Patient had a 2nd seizure that lasted less than 1 minute. Versed 2 mg IV is ordered. Patient is placed on oxygen. 10:30 p.m.: Patient is feeling better and she is currently asymptomatic. Dizziness has resolved. Patient has elevated LFTs. There are reports that KAVA may be hepatotoxic. Patient also has a history of drinking alcohol however she states that she has been sober for one year. Given the amount of KAVA she has been consuming may be the cause for her hepatitis. LFTs will need to be followed. Patient's seizure may be actually secondary to withdrawal from the KAVA. According to the she was drinking 8-12 bottles of the day and has been cutting back and then decided today to go cold turkey and has not had any KAVA since yesterday. We will continue to monitor. Patient's magnesium is found to be critically low at one. Magnesium sulfate 2 g IV has been ordered. Consultations/communications: Proximally 10:30 p.m.: Case discussed with the hospitalist, Dr. Estes. He will see the patient. Critical conditions addressed for impending deterioration include: [ airway/respiratory, cardiovascular, ROOFER GYPSUM, metabolic, renal, hepatobillary.] Associated risk factors involving deterioration include:[ hypoxia, bleeding, trauma, hypertension, hypotension, dysrythmia, metabolic changes, dehydration, acidosis, medication overdose.] The very real possibility of a deterioration of this patient's condition required the highest level of my preparedness for sudden, emergent intervention. I provided critical care services, which included medication orders, frequent reevaluations of the patient's condition and response to treatment, ordering and reviewing test results, and discussing the case with necessary consultants. Critical care time was exclusive of necessary procedure time. The critical care time associated with the care of the patient was 45 minutes. Organ systems at risk are cardiovascular, neurological, hepatic and renal Departure Time of Disposition: 22:45 Disposition: 09 ADMITTED INPATIENT Admission Level of Care: Neuro with Tele Impression: Primary Impression: Seizure Additional Impressions: New onset seizure Hepatitis chronic Kava overdose Hypomagnesemia Condition: Fair Education Educated: Patient, Family Educated regarding: diagnosis, treatment Signature Scribe Signature: No scribe Attestation: No scribe CHAPARRO MCLAUGHLIN MD October 12, 2024 21:29
[2024-10-12 21:30] LABS: ANISOCYTOSIS 2+; PLATELET ESTIMATE NORMAL
[2024-10-12] MEDS: midazolam 1 mg/ML 2ml injection IV ONE (21:30)
[2024-10-12] MEDS: normal saline 1000ML IV soln IVB ONE (21:32)
[2024-10-12] MEDS: meclizine 12.5mg tablet PO ONE (21:32)
[2024-10-12] MEDS: diazepam inj 5 MG/ML inj. IV ONE (21:32)
[2024-10-12] MEDS: ondansetron/PF 4mg/2ml inj IV ONE (21:32)
[2024-10-12 21:59] LABS: ALANINE AMINOTRANSFERASE 158 U/L (12-78); ALBUMIN/GLOBULIN RATIO 0.9 (1.1-1.5); ALKALINE PHOSPHATASE 228 IU/L (46-116); ANION GAP 21 (8-16); ASPARTATE AMINO TRANSFERASE 341 U/L (10-37); BILIRUBIN,TOTAL 1.4 MG/DL (0.1-1.0); BLOOD UREA NITROGEN 3 MG/DL (7-18); BUN/CREATININE RATIO 2.1 (10.0-20.0); CALCIUM 8.4 MG/DL (8.5-10.1); CHLORIDE 103 MMOL/L (99-107); CREATININE 1.45 MG/DL (0.40-0.90); GLUCOSE 220 MG/DL (70-104); POTASSIUM 3.5 MMOL/L (3.5-5.1); SODIUM 141 MMOL/L (135-145); TOTAL CARBON DIOXIDE 16.8 MMOL/L (24-32); TOTAL PROTEIN 6.4 G/DL (6.4-8.2); eCRCL 39 ML/MIN; eGFR 37 ML/MIN
[2024-10-12] MEDS ORDERED: magnesium sulf-water 2g/50mL 50 ML IV PRN (23:30)
[2024-10-12] MEDS ORDERED: potassium Cl 20 mEq SR tablet PO PRN (23:30)
[2024-10-12] MEDS ORDERED: magnesium hydroxide 30ml (MOM) UD suspension PO PRN (23:30)
--- NOTE | 2024-10-13 00:14 | HISTORY AND PHYSICAL-Residence ---
History & Physical Providers to CC Resident Creating Document: JOSE ESTES, RES ~ History of Present Illness Primary Medical Doctor: KASIA Reason for Admit\\Complaint: Seizures, altered level of consciousness History of Present Illness In view of the altered level of consciousness of the patient in the history is derived from the patient's who is at the bedside. 59 years old female past medical history of hypertension, CHF was brought into the ER by the EMS with chief complaint of seizures that was witnessed by her today in the evening around 6:00 p.m.. The patient's reports that the patient was complaining of generalized weakness and chills throughout the day today. He reports that he was helping his from the bedroom to the serrano when all of a sudden she complained of her legs giving up and needing to be seated on a chair. As soon as the patient sat on the chair the patient has started seizing with the tunic seizures that lasted for around 5 minutes. It has been reported that the patient was altered and confused after the seizures for at least 45 minutes until the EMS arrived and the patient was brought into the hospital. He reports that this is the 1st time the patient has had seizures. He mentioned that the patient has been taking a drink from the gas station called "[employer]" for the past couple of months. He reports that he has been drinking almost 10 bottles of these drinks every day for the last couple of months. He states that she decided to quit these drinks cold turkey today in the morning and thinks all the symptoms started after the patient quit drinking this drink. While the patient was in the ER the patient had one more episode of seizures that was reported by the ER physician. He mentioned that the seizure did not last long and she was treated with the Valium IV. At the time of examination/interview with the patient is altered, somnolent and is answering questions very slowly. She is not oriented to time, place. She complains of dizziness and states that she feels like the room is spinning around her. She also complains of nausea. Allergies: Coded Allergies: Heparin Analogues (Verified Allergy, Unknown, 10/12/24) prochlorperazine edisylate (Verified Allergy, Unknown, HALLUCINATIONS, 10/12/24) prochlorperazine maleate (Verified Allergy, Unknown, HALLUCINATIONS, 10/12/24) Home Medications Home Medications Active Macrobid 100 mg Capsule (Nitrofurantoin Monohyd/M-Cryst) 100 Mg Capsule 1 Cap PO Q12H 7 Days Multi Vitamin Daily (Multivitamin) 1 Each Tablet 1 Tab PO DAILY 30 Days Folic Acid* (Folic Acid) Y Tab 1 Tab PO DAILY 30 Days Vitamin B-1 (Thiamine HCl) 50 Mg Tablet 2 Tab PO DAILY 30 Days Chlordiazepoxide HCl 25 Mg Capsule 50 Mg PO DAILY 2 Days Reported Quetiapine Fumarate 50 Mg Tablet 1 Tab PO HS Bupropion Xl (Bupropion HCl) 300 Mg Tab.er.24h 1 Tab PO DAILY Carvedilol 3.125 Mg Tablet 1 Tab PO DAILY Nifedipine Er* (Nifedipine) 30 Mg Tab.er2.24 1 Tab PO DAILY Lisinopril 20 Mg Tablet 1 Tab PO DAILY Duloxetine HCl 60 Mg Capsule. 1 Cap PO DAILY Past Medical History Past Medical History Hypertension, CHF, history of alcohol use disorder with history of withdrawals. Past Surgical History Surgical History Comment Gastric bypass next twice Partial colectomy Family History Family History: FH: HTN (hypertension) Past Social History Social History Comment Lives at home with History of alcohol use disorder with the episodes of withdrawals. Quit alcohol last April. No recreational drug use ROS All Other Systems: Reviewed and Negative ROS Unable to conduct a review of systems as the patient is altered Exam Vitals: Vital Signs Date Time Temp Pulse Resp B/P (MAP) Pulse Ox O2 Delivery O2 Flow Rate FiO2 10/12/24 22:30 118 13 142/65 (90) 100 10/12/24 20:50 96.8 General: General: Altered, somnolent and gives very slow responses. Not oriented to time, place. HEENT: Pupils dilated. Conjunctiva pink, Sclera clear, Mucus Membranes moist. Neck: Supple without masses and tenderness. Resp: Unlabored. Lungs clear to auscultation bilaterally. Heart: Regular Rate and rhythm, normal S1 and S2 without murmur, rub or gallop. Abdomen: Soft and non tender no organomegaly Extremities: No cyanosis,clubbing or edema. Skin: Warm and Dry. Neurology: No motor or sensory deficits. Diagnostic Data Last Recorded Lab Results: 10/12/24203910/12/242138 Advance Care Planning Advanced Care planning: Add on additional 30 min Additional Plan Seizures Postictal encephalopathy The patient has been consuming excessive amounts of "PILI Chill" herbal drink for the past two months. This drink contains kava kava and kratom. Per the 's report the patient all of a sudden stop drinking this today. The patient's seizures could has been triggered from Kratom withdrawal. Patient received IV diazepam 5 mg once in the ER while seizing. Started the patient on IV levetiracetam 500 mg daily. As needed IV lorazepam 2 mg for seizures. Patient electrolyte studies showed hypomagnesemia. We will replace magnesium. EEG has been ordered. Tele neurology consulted. Awaiting recommendations. CT scan negative for any acute intracranial abnormalities. Mild chronic white matter microvascular ischemic change noted. Follow up with the urinary tox, A1c, TSH, CPK, urine analysis. We will continue monitoring and supportive care. Transaminitis Acute versus chronic liver failure. Patient's has been reported that the patient has a history of alcohol use disorder and had liver problems in the past. She quit alcohol last April that is almost five months ago. Patient is currently consuming a herbal drink with Kava Kava which is known to be hepatotoxic. The patient's transaminitis can be secondary to acute liver injury from Kava kava. We will continue supportive management. Follow up with LFTs daily. BROOKS Follow up with the urine analysis. Supportive management with IV fluids. We will continue monitoring renal function tests. Hypertension History of CHF Awaiting med reconciliation. Vitals currently stable. CODE STATUS: Full code DVT prophylaxis: SCDs GI prophylaxis: None Diet: NPO until bedside swallow eval Disposition: Admitting the patient for evaluation and management of seizures and postictal encephalopathy. Awaiting Neurology consultation. Jose Estes MD Internal Medicine Resident, PGY-2 Addendum I personally reviewed the chart, labs and imaging and reviewed the patient with the team. I agree with the assessment and plan as documented by the resident. Patient was seen through remote audio-visual assessment through HIPAA compliance setup. Date of Service: October 13, 2024 Billing Provider: ISAAK CASTANEDA MD, SURYA PRATIK, [facility] October 13, 2024 00:14 ISAAK CASTANEDA MD October 13, 2024 02:19
[2024-10-13 00:15] LABS: HEMOGLOBIN A1C 4.3 % (4.5-6.2)
[2024-10-13 00:21] LABS: PHOSPHORUS 2.9 MG/DL (2.3-4.5)
--- NOTE | 2024-10-13 01:33 | [facility] CONSULT REPORT ---
[facility] Procedure Note [facility] Procedure Note Consult [facility] Note # Demographics Consult Type: General Neurology Patient Location: Emergency Room First Name: ERNESTINA Last Name: CJ Date of : 1965 Age: 59 Gender: Female Facility: [facility] Time of Initial Page (): 10/13/2024 00:48 Time of Return Call (): 10/13/2024 00:49 # HPI History: Hx etoh use sober x1 year Drinking zanachill- may have neurologic effects. Stopped Here with seizure x5 minutes with short post ictal period. Seconds short seizure lasting 30 seconds. returning to baseline Some lft changes # Scores Level of Consciousness 1a: [0] = Alert; keenly responsive LOC Questions 1b: [1] = Answers one correctly LOC Commands 1c: [0] = Performs both tasks correctly Best Gaze 2: [0] = Normal Visual 3: [0] = No visual loss Facial Palsy 4: [0] = Normal symmetrical movements Motor Arm Left 5a: [0] = No drift Motor Arm Right 5b: [0] = No drift Motor Leg Left 6a: [0] = No drift Motor Leg Right 6b: [0] = No drift Limb Ataxia 7: [0] = Absent Sensory 8: [0] = Normal Best Language 9: [0] = No aphasia Dysarthria 10: [0] = Normal Extinction and Inattention 11: [0] = No abnormality NIHSS Total: 1 # Data Head CT: - no bleed - per radiologist read # Assessment Impression: Likely provoked seizure from toxometabolic exposure. Treat seizures with benzodiazepines acuteley. Call back if prolonged seizure. # Plan Labs: - urine drug screen - ua Imaging: (urgency: routine): - MRI Brain with AND without contrast Diagnostic Test: - EEG Other: - If patient has any neurological deterioration please call me back immediately - I have discussed my recommendations with the referring provider - would not pursue stroke work-up if MRI is negative # Logistics Attestation of consult completion: The patient is located at: [facility]. Facility staff participated in the visit. I performed this telemedicine visit from my offsite office utilizing interactive 2 way audio and visual telecommunication technology. Total time spent in telemedicine encounter: I spent 21 minutes reviewing clinical data and/or imaging, obtaining history, examining the patient, communicating with the onsite care team, and in preparation of this report. # Demographics First Name: ERNESTINA Last Name: HYACINTHARIANAAUGUSTO Facility: [facility] Electronically signed at 10/13/2024 01:31 (Melvin Time) by Sameer Blanchard MD Neuro Consult Order placed for: Yes CHUCK BLANCHARD MD October 13, 2024 01:33
[2024-10-13] MEDS: normal saline 1000ml 1,000 ML IV SCH (01:38)
[2024-10-13] MEDS: magnesium sulf-water 2g/50mL 50 ML IV ONE (01:38)
[2024-10-13] MEDS: Levetiracetam-NACL 500mg/100ml 100 ML IV ONE (01:55)
[2024-10-13] MEDS: Levetiracetam-NACL 500mg/100ml 100 ML IV SCH (01:56)
[2024-10-13 02:57] LABS: APTT 25 SECONDS (22-32); INR 1.1 INR; PROTHROMBIN TIME 11.4 SECONDS (9.0-12.0)
[2024-10-13 02:59] LABS: BASOPHILS % (AUTO) 0.1 % (0-1); EOSINOPHILS % (AUTO) 0 % (0-6); HEMATOCRIT 34.9 % (35.0-45.0); HEMOGLOBIN 12.1 g/dl (12.0-16.0); LYMPHOCYTES # (AUTO) 0.4 X10'3 (1.1-4.8); LYMPHOCYTES % (AUTO) 7.2 % (21-51); MEAN CORPUSCULAR HEMOGLOBIN 39.4 PG (27.0-31.0); MEAN CORPUSCULAR HGB CONC 34.8 g/dL (33.0-36.5); MEAN CORPUSCULAR VOLUME 113.5 FL (78-98); MEAN PLATELET VOLUME 10.5 FL (7.4-10.4); MONOCYTES # (AUTO) 0.4 X10'3 (0-0.9); MONOCYTES % (AUTO) 5.7 % (2-12); NEUTROPHILS # (AUTO) 5.4 X10'3 (1.8-7.7); PLATELET COUNT 168 X10'3 (140-440); RED BLOOD COUNT 3.08 X10'6 (4.20-5.60); RED CELL DISTRIBUTION WIDTH 15.2 % (11.5-14.5); WHITE BLOOD COUNT 6.2 X10'3 (4.5-11.0)
[2024-10-13 03:14] LABS: ALANINE AMINOTRANSFERASE 136 U/L (12-78); ALBUMIN 2.8 G/DL (3.4-5.0); ALBUMIN/GLOBULIN RATIO 0.9 (1.1-1.5); ALKALINE PHOSPHATASE 206 IU/L (46-116); ANION GAP 15 (8-16); ASPARTATE AMINO TRANSFERASE 251 U/L (10-37); BILIRUBIN,TOTAL 1.7 MG/DL (0.1-1.0); BLOOD UREA NITROGEN 3 MG/DL (7-18); BUN/CREATININE RATIO 2.7 (10.0-20.0); CALCIUM 7.8 MG/DL (8.5-10.1); CHLORIDE 106 MMOL/L (99-107); CREATINE KINASE 142 U/L (26-192); CREATININE 1.11 MG/DL (0.40-0.90); GLUCOSE 197 MG/DL (70-104); MAGNESIUM 1.2 MG/DL (1.5-2.4); POTASSIUM 3.3 MMOL/L (3.5-5.1); SODIUM 145 MMOL/L (135-145); THYROID STIMULATING HORMONE 0.91 ulU/ml (0.34-4.50); TOTAL CARBON DIOXIDE 24.1 MMOL/L (24-32); TOTAL PROTEIN 5.9 G/DL (6.4-8.2); eCRCL 50 ML/MIN; eGFR 50 ML/MIN
[2024-10-13] MEDS: K and/or MAG REPLACEMENT MC SCH (08:00)
[2024-10-13] MEDS: docusate sod 100mg capsule PO SCH (08:00)
[2024-10-13 08:51] LABS: LIPASE 27 U/L (16-77)
[2024-10-13] MEDS: thiamine 100mg/ml 2ml inj. IV SCH (09:11)
[2024-10-13] MEDS: magnesium sulf-water 4G/100mL 100 ML IV PRN (09:15)
[2024-10-13] MEDS: LORazepam 2 mg/ml vial IV PRN ×2 (09:29→22:03)
--- NOTE | 2024-10-13 11:15 | ELECTROCARDIOGRAPH REPORT ---
[facility] Test Date: 2024-10-13 Test Time: 11:13:01 Pat Name: ERNESTINA PIERRE Department: [facility]-ED HOLD Patient ID: 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 Reading MD: Dr. Kingsley Barron Measurements Intervals [place] Rate: 122 P: 42 TN: 141 QRS: 69 QRSD: 149 T: 68 QT: 365 QTc: 520 Interpretive Statements Sinus tachycardia Right bundle branch block Anterolateral infarct, age indeterminate Baseline wander in lead(s) V3,V4,V6 Electronically Signed On 10-14-2024 11:01:[address] Kingsley Barron Please click the below link to view image of tracing.
[2024-10-13] MEDS: potassium Cl 40MEQ/1/2NS 520ml 520 ML IV PRN (11:40)
[2024-10-13] MEDS: metoprolol tartrate 1mg/ml inj IV ONE (11:52)
--- NOTE | 2024-10-13 12:53 | RADIOLOGY REPORT ---
INDICATION: elevated t.bili, hx alcoholism, transaminitis TECHNIQUE: Multiple real-time sonographic images of the abdomen were obtained. COMPARISON: US ULTRASOUND OF ABDOMEN on DOS: 06/11/23 FINDINGS: Liver is increased in echogenicity. The liver measures 21 cm. No intrahepatic biliary ductal dilatation is noted. Gallbladder not evaluated. The common duct measures 0.7 cm and is unremarkable. The right kidney measures 11.3 cm. No hydronephrosis. The pancreas is not well visualized due to obscuration from bowel gas. The visualized portions of the IVC and aorta are grossly unremarkable. IMPRESSION: Hepatic steatosis and hepatomegaly. Gallbladder was not evaluated as patient could not tolerate exam. Common bile duct measures 0.7 cm.
[2024-10-13] MEDS: normal saline 1000ml 1,000 ML IV ONE (13:41)
[2024-10-13] MEDS: piperacillin/tazo 3.375gm/50ml 50 ML IV SCH (14:15)
[2024-10-13 14:28] LABS: BILIRUBIN,URINE NEGATIVE (Neg); CLARITY,URINE SLIGHTLY CLOUDY (Clear); COLOR,URINE YELLOW (Yellow); GLUCOSE, URINE NEGATIVE (Neg); KETONES,URINE NEGATIVE (Neg); LEUKOCYTE ESTERASE ,URINE MODERATE (Neg); NITRITES, URINE NEGATIVE (Neg); OCCULT BLOOD,URINE SMALL (Neg); PROTEIN,URINE 30 mg/dl (Neg)
[2024-10-13 14:35] LABS: UA COLLECTION TYPE OTHER
[2024-10-13 14:36] LABS: BACTERIA,URINE FEW /HPF (Neg); MUCUS STRANDS NONE SEEN /LPF (Neg); RBC,URINE 0-2 /HPF (0-2); RENAL CELLS, URINE MODERATE /HPF; SQUAMOUS EPITHELIAL CELL,UR MODERATE /LPF (FEW); TRANSITIONAL EPI CELLS,URINE FEW /HPF; WBC,URINE 30-50 /HPF (0-4)
[2024-10-13 14:57] LABS: CREATININE,URINE RANDOM 41.3 MG/DL; SODIUM,URINE RANDOM 170 MEQ/L; URINE AMPHETAMINE SCREEN NEGATIVE (Neg); URINE BARBITUATE SCREEN NEGATIVE (Neg); URINE BENZODIAZEPINES SCREEN POSITIVE (Neg); URINE CANNABINOID SCREEN NEGATIVE (Neg); URINE COCAINE SCREEN NEGATIVE (Neg); URINE METHADONE SCREEN NEGATIVE (Neg); URINE OPIATE SCREEN NEGATIVE (Neg); URINE PHENCYCLIDINE SCREEN NEGATIVE (Neg)
--- NOTE | 2024-10-13 16:36 | PROGRESS NOTE ---
Daily Progress Note Providers to CC ~ Erwin-Non Protocol Erwin Indications Met/Not Met: F/C Indications Met Antibiotic Timeout Antibiotic Ordered?: Yes If Yes, Indications: UTI Subjective No acute events overnight. Patient examined at bedside. Patient is altered but arousable, response to tactile and verbal stimuli. Febrile, sinus tachycardia, tachypneic. Admitted with seizure, no seizure activity today. CK normal. Lactic acid and procal pending. BROOKS improving with IVF resuscitation. Transaminitis with elevated t.bili. Normal lipase, INR is 1.1. US abdomen shows hepatomegaly and hepatic steatosis without CBD dilation. UA shows UTI. Started on vancomycin and Zosyn. Objective Vital Signs Date Time Temp Pulse Resp B/P (MAP) Pulse Ox O2 Delivery O2 Flow Rate FiO2 10/13/24 15:03 100.7 115 24 125/83 (97) 99 0 Result Diagram: 10/13/2423210/13/24232 Physical Exam General: Generalized weakness, altered, arousable, NAD HEENT: Normocephalic, PERRLA Neck: Supple, trachea midline, no JVD Chest: Clear to auscultation bilaterally Cardiovascular: RRR, S1&S2 GI: Soft and nontender Extremities: No cyanosis/clubbing/or edema SECTION HAND: No focal deficits Musculoskeletal: No paraspinal muscle tenderness, no muscle spasm Skin: Warm and intact Coagulation Studies Laboratory Tests Test 10/13/24 02:33 Prothrombin Time 11.4 SECONDS (9.0-12.0) INR International Normalized Ratio 1.1 INR Activated Partial Thromboplast Time 25 SECONDS (22-32) Coagulation Comments Problem\Assessment\Plan # Sepsis 2/2 UTI- POA # UTI- POA # Electrolyte imbalances # Dehydration # Prerenal BROOKS 2/2 sepsis/vasomotor nephropathy- POA # Seizures 2/2 above # Postictal encephalopathy # Metabolic encephalopathy 2/2 above- POA # Hyperglycemia 2/2 seizures -received IV diazepam 5 mg once in the ED for active seizures, started on IV Keppra, prn Ativan for seizures, on seizure precaution, K/Mg replacement protocol, Erwin, hyper/hypoglycemic protocol -febrile, septic, dehydrated- likely cause of seizure -follow lactic acid, procal, blood cx # Prerenal BROOKS 2/2 sepsis/vasomotor nephropathy- POA -US abdomen shows no hydronephrosis, renal function improving on IVF # Hx Chronic alcoholism, quit 5 months ago # Hepatitis likely ischemic -transaminitis and elevated t.bili; INR 1.1, normal lipase -pt has been consuming a herbal drink with Kava Kava which is hepatotoxic. -US abdomen shows hepatomegaly and hepatic steatosis without CBD dilation; follow portal vein US; hold CT given BROOKS and decreased GFR # Hypertension # Chronic diastolic heart failure, LVEF 65-70% -pending med rec CODE STATUS: Full code DVT prophylaxis: SCDs Date of Service: October 13, 2024 Billing Provider: MARCO A BLANTON Common Visit Codes: [id number] INP/OBS CARE(HIGH) MARCO A BLANTON October 13, 2024 16:36
[2024-10-13 17:32] LABS: TOTAL PROTEIN,URINE RANDOM 65.8 MG/DL
--- NOTE | 2024-10-13 18:05 | VASCULAR REPORT ---
EXAM: VASC VL PORTAL INDICATION: Question portal vein thrombosis TECHNIQUE: Grayscale and color Doppler sonographic imaging evaluation of the region of concern. Spect ral analysis was performed. COMPARISON: US ULTRASOUND OF ABDOMEN on DOS: 10/13/24 FINDINGS: Portal veins appear patent with a hepatopetal flow. Hepatic veins appear patent with hepatofugal john w. Hepatic artery is patent. Portal vein measures 1 cm in diameter. IMPRESSION: 1. No sonographic evidence of portal vein thrombosis.
[2024-10-13] MEDS: VANCOMYCIN 1.75GM/WATER FOR INJ (PEG) 350 ML IVPB IV ONE (18:24)
[2024-10-13] MEDS ORDERED: DEXTROSE 15 GM of carb/4 tabs (each vial/BOTTLE has 4 tablets) PO PRN ×2 (18:30)
[2024-10-13] MEDS ORDERED: dextrose 50%-water 50ml dispensing syringe IV PRN ×2 (18:30)
[2024-10-13] MEDS ORDERED: glucagon, human recombinant 1mg kit SUBCUT PRN (18:30)
[2024-10-13] MEDS: acetaminophen 1,000mg/100ml IV 100 ML IV ONE (19:34)
[2024-10-13 20:00] VITALS: BP 116/86; PULSE 97; RESP 12; TEMP 97.2; O2SAT 100
[2024-10-13] MEDS ORDERED: heparin, porcine 5000 units/ml vial SQ SCH (20:00)
[2024-10-13] MEDS: INSULIN LISPRO 100 UNIT/ML INSULN.PEN MULTI-DOSE SQ SCH (21:00)
[2024-10-13 22:00] VITALS: BP 123/79; PULSE 105; RESP 20; TEMP 97; O2SAT 97
[2024-10-14] VITALS (8 sets, daily range): BP systolic 137–169; BP diastolic 84–113; PULSE 87–132; RESP 16–44; TEMP 97.2–97.8; O2SAT 94–99
[2024-10-14] MEDS: potassium Cl 20 mEq SR tablet PO PRN (02:36)
[2024-10-14] MEDS: magnesium Cl slow-release 64mg tablet PO PRN (02:37)
[2024-10-14 06:45] LABS: BASOPHILS % (AUTO) 0.4 % (0-1); EOSINOPHILS % (AUTO) 0 % (0-6); HEMATOCRIT 36.2 % (35.0-45.0); HEMOGLOBIN 12.2 g/dl (12.0-16.0); LYMPHOCYTES # (AUTO) 1.6 X10'3 (1.1-4.8); LYMPHOCYTES % (AUTO) 20.8 % (21-51); MEAN CORPUSCULAR HEMOGLOBIN 39.2 PG (27.0-31.0); MEAN CORPUSCULAR HGB CONC 33.8 g/dL (33.0-36.5); MEAN CORPUSCULAR VOLUME 115.7 FL (78-98); MEAN PLATELET VOLUME 10.8 FL (7.4-10.4); MONOCYTES # (AUTO) 0.5 X10'3 (0-0.9); NEUTROPHILS # (AUTO) 5.4 X10'3 (1.8-7.7); NEUTROPHILS % (AUTO) 71.8 % (42-75); PLATELET COUNT 120 X10'3 (140-440); RED BLOOD COUNT 3.12 X10'6 (4.20-5.60); RED CELL DISTRIBUTION WIDTH 15.2 % (11.5-14.5); WHITE BLOOD COUNT 7.6 X10'3 (4.5-11.0)
[2024-10-14 07:13] LABS: ALANINE AMINOTRANSFERASE 141 U/L (12-78); ALBUMIN 2.6 G/DL (3.4-5.0); ALBUMIN/GLOBULIN RATIO 0.8 (1.1-1.5); ALKALINE PHOSPHATASE 186 IU/L (46-116); ANION GAP 10 (8-16); ASPARTATE AMINO TRANSFERASE 386 U/L (10-37); BILIRUBIN,TOTAL 1.8 MG/DL (0.1-1.0); BLOOD UREA NITROGEN 4 MG/DL (7-18); BUN/CREATININE RATIO 4.4 (10.0-20.0); CALCIUM 8.1 MG/DL (8.5-10.1); CHLORIDE 113 MMOL/L (99-107); GLUCOSE 91 MG/DL (70-104); MAGNESIUM 1.9 MG/DL (1.5-2.4); SODIUM 146 MMOL/L (135-145); TOTAL CARBON DIOXIDE 22.7 MMOL/L (24-32); TOTAL PROTEIN 5.7 G/DL (6.4-8.2); eCRCL 62 ML/MIN; eGFR 64 ML/MIN
[2024-10-14 07:30] LABS: LARGE PLATELETS FEW; PLATELET ESTIMATE DECREASED
[2024-10-14] MEDS: vancomycin/NS 1 GM ADD-VANTAGE 250 ML IV SCH (09:07)
[2024-10-14] MEDS ORDERED: iohexol 300mg/ml 100ml inj. ONE (12:40)
--- NOTE | 2024-10-14 13:07 | RADIOLOGY REPORT ---
MR MRI HEAD INDICATION: Seizures EXAM DATE: 10/14/2024 11:48 AM COMPARISON: 10/12 PROCEDURE: Using a 1.5 Florencia scanner, multisequence multiplanar imaging of the brain was obtained. FINDINGS: The brainshows normal morphology and signal characteristics. No abnormal T2 hyperintensity, diffusion restriction, or susceptibility hypointensity is present. The ventricles are normal in size . The midline structures are intact. The major intracranial flow voids are present. The aerated space s are normal. The orbital contents and extracranial soft tissues appear normal. IMPRESSION: Unremarkable MRI findings of the brain.
--- NOTE | 2024-10-14 13:53 | RADIOLOGY REPORT ---
Exam: CT CT ABDOMEN PELVIS W/ IV CONTRAST History: transaminitis, cholestasis COMPARISON: None Technique: Multidetector spiral CT of the abdomen and pelvis was performed from lung bases to pubic s ymphysis. Intravenous contrast was administered during this examination. Portal venous imaging was obtained. Axial, coronal and sagittal multiplanar reformats were performed by the technologist on a separate workstation. Radiation Dose : 1. Abdomen/Pelvis: CTDIvol 12mGy, DLP 671 mGy*cm. CONTRAST: Type of contrast: Isovue-300 Contrast injected: 100 ml Contrast ingested: 0 ml Findings: Lung Bases: Small bilateral pleural effusions, left greater than right. Heart size upper limits of no rmal. Liver: Fatty infiltration of the liver. Severe hepatomegaly. Gallbladder and Biliary Tree: Cholecystectomy Spleen: Unremarkable Pancreas: The pancreas is normal in appearance without focal lesions or abnormal enhancement. Adrenal Glands: Unremarkable Kidneys: No hydronephrosis. Bladder: Erwin catheter in the bladder. Bowel: Surgical clips of the level of the stomach consistent with gastric bypass surgery. Focal dilat ation of the mid jejunum. Findings possibly may represent a focal ileus. Mild thickening of the bowel wall of the cecum and ascending colon. Appendix not identified. Ascites: Absent Lymphadenopathy: No mesenteric, retroperitoneal or periportal lymphadenopathy. Abdominal Wall and Mesentery: Unremarkable. Vasculature: The visualized abdominal aorta is normal in size and caliber. Abdominal and pelvic vess els demonstrate normal enhancement. Pelvic Organs: Unremarkable Musculoskeletal: No aggressive focal bony lesions, acute fractures or dislocation. IMPRESSION: 1. Severe hepatomegaly with fatty infiltration of the liver consistent with prior ultrasounds Status post cholecystectomy. Appendix not identified. Erwin catheter in the bladder Nonspecific mild thickening of the bowel wall of the cecum and ascending colon. Focal dilatation of a loop of jejunum in the left upper quadrant, coronal image 43, series 601. Focal ileus may be present. Further assessment with CT scanning with oral contrast could be performed if clinically indicated. Radiation optimization: All CT scans at this facility use at least one of these dose optimization danni hniques: automated exposure control mA and/or kV adjustment per patient size (includes targeted exam s where dose is matched to clinical indication) or iterative reconstruction.
[2024-10-14] MEDS: ringers solution, lacted 1,000 ML IV SCH (13:58)
--- NOTE | 2024-10-14 14:12 | PROGRESS NOTE ---
Daily Progress Note Providers to CC ~ Antibiotic Timeout Antibiotic Ordered?: Yes Subjective No acute events overnight. Patient examined at bedside. Patient is altered but arousable, response to tactile and verbal stimuli. Admitted with seizure, no seizure activity since admission. Fever resolved. Tele sinus in 100s. CK normal. Lactic acid and procal negative. BROOKS resolving with IVF resuscitation. Transaminitis with elevated t.bili. Normal lipase, INR is 1.1. Portal vein US negative. CT abdomen/pelvis reveals severe hepatomegaly with fatty infiltration of liver, s/p cholecystectomy, no hydronephrosis. Urine culture resulted for gram positive cocci. Preliminary blood culture remains negative. Objective Vital Signs Date Time Temp Pulse Resp B/P (MAP) Pulse Ox O2 Delivery O2 Flow Rate FiO2 10/14/24 06:30 109 10/14/24 02:00 97.6 24 137/84 (101) 94 Room Air 10/13/24 15:03 0 Result Diagram: 10/14/2462110/14/24621 Physical Exam General: Generalized weakness, altered, arousable, NAD HEENT: Normocephalic, PERRLA Neck: Supple, trachea midline, no JVD Chest: Clear to auscultation bilaterally Cardiovascular: RRR, S1&S2 GI: Soft and nontender Extremities: No cyanosis/clubbing/or edema REFRIGERATOR GLAZIER: No focal deficits Musculoskeletal: No paraspinal muscle tenderness, no muscle spasm Skin: Warm and intact Coagulation Studies Laboratory Tests Test 10/13/24 02:33 Prothrombin Time 11.4 SECONDS (9.0-12.0) INR International Normalized Ratio 1.1 INR Activated Partial Thromboplast Time 25 SECONDS (22-32) Coagulation Comments Problem\Assessment\Plan # Sepsis 2/2 UTI- POA # UTI- POA # Electrolyte imbalances # Dehydration # Prerenal BROOKS 2/2 sepsis/vasomotor nephropathy- POA # Seizures 2/2 above # Postictal encephalopathy # Metabolic encephalopathy 2/2 above- POA # Hyperglycemia 2/2 seizures -received IV diazepam 5 mg once in the ED for active seizures, started on IV Keppra, prn Ativan for seizures, on seizure precaution, K/Mg replacement protocol, Erwin, hyper/hypoglycemic protocol -febrile, septic, dehydrated- likely cause of seizure -follow lactic acid, procal, blood cx -10/14: Urine culture resulted for gram positive cocci. # Prerenal BROOKS 2/2 sepsis/vasomotor nephropathy- POA -US abdomen shows no hydronephrosis, renal function improving on IVF # Hx Chronic alcoholism, quit 5 months ago # Transaminitis -transaminitis and elevated t.bili; INR 1.1, normal lipase -pt has been consuming a herbal drink with Kava Kava which is hepatotoxic. -US abdomen shows hepatomegaly and hepatic steatosis without CBD dilation; follow portal vein US; hold CT given BROOKS and decreased GFR -10/14: CT abdomen/pelvis reveals severe hepatomegaly with fatty infiltration of liver, s/p cholecystectomy, no hydronephrosis. Portal vein US negative. IVF discontinued. -hepatitis panel pending, follow TTE, pBNP [id number], start Lasix # Hypertension # Chronic diastolic heart failure, LVEF 65-70% -pending med rec CODE STATUS: Full code DVT prophylaxis: SCDs Date of Service: October 14, 2024 Billing Provider: MARCO A BLANTON Common Visit Codes: [id number] INP/OBS CARE(HIGH) MARCO A BLANTON October 14, 2024 14:12
[2024-10-14] MEDS: PERFLUTREN PROTEIN-A MICROSPHR (Optison) 0.22 MG/ML 3ML VIAL IV ONE (14:15)
[2024-10-14 14:38] LABS: PRO BRAIN NATRIURETIC PEPTIDE 12740 PG/ML (0-125)
[2024-10-14] MEDS: GADOTERATE MEGLUMINE 7.5 MMOL/15 ML VIAL IV ONE (15:37)
[2024-10-14] MEDS: dextrose 5%-water 1,000 ML IV SCH (18:11)
[2024-10-14] MEDS: metoprolol tartrate 1mg/ml inj IV PRN (19:30)
[2024-10-14] MEDS: furosemide 20 MG/2 ML vial IV SCH (19:40)
[2024-10-14] MEDS: metoprolol tartrate 1mg/ml inj IV STA (19:42)
[2024-10-14] MEDS ORDERED: furosemide 40mg/4ml inj IV SCH (20:00)
[2024-10-14] MEDS: diltiazem 5mg/ml 5ml inj. IV ONE (21:51)
[2024-10-15] VITALS (9 sets, daily range): BP systolic 135–153; BP diastolic 93–105; PULSE 105–125; RESP 24–49; TEMP 97.1–98; O2SAT 98–100
[2024-10-15] MEDS: hydrALAZINE 20mg/ml inj. IV PRN (00:20)
[2024-10-15] MEDS: metoprolol tartrate 1mg/ml inj IV ONE (01:50)
[2024-10-15] MEDS: VANCOMYCIN LEVEL IV ONE (06:30)
[2024-10-15 06:52] LABS: BASOPHILS % (AUTO) 0.3 % (0-1); EOSINOPHILS % (AUTO) 0 % (0-6); HEMATOCRIT 37.6 % (35.0-45.0); HEMOGLOBIN 12.6 g/dl (12.0-16.0); LYMPHOCYTES # (AUTO) 0.9 X10'3 (1.1-4.8); LYMPHOCYTES % (AUTO) 7.9 % (21-51); MEAN CORPUSCULAR HEMOGLOBIN 38.8 PG (27.0-31.0); MEAN CORPUSCULAR HGB CONC 33.5 g/dL (33.0-36.5); MEAN PLATELET VOLUME 10.9 FL (7.4-10.4); MONOCYTES # (AUTO) 0.5 X10'3 (0-0.9); MONOCYTES % (AUTO) 4.7 % (2-12); NEUTROPHILS # (AUTO) 9.4 X10'3 (1.8-7.7); NEUTROPHILS % (AUTO) 87.1 % (42-75); PLATELET COUNT 172 X10'3 (140-440); RED BLOOD COUNT 3.24 X10'6 (4.20-5.60); RED CELL DISTRIBUTION WIDTH 14.7 % (11.5-14.5); WHITE BLOOD COUNT 10.8 X10'3 (4.5-11.0)
[2024-10-15 07:08] LABS: ALANINE AMINOTRANSFERASE 145 U/L (12-78); ALBUMIN 2.5 G/DL (3.4-5.0); ALBUMIN/GLOBULIN RATIO 0.8 (1.1-1.5); ALKALINE PHOSPHATASE 187 IU/L (46-116); ANION GAP 19 (8-16); ASPARTATE AMINO TRANSFERASE 367 U/L (10-37); BILIRUBIN,TOTAL 2.2 MG/DL (0.1-1.0); BLOOD UREA NITROGEN 9 MG/DL (7-18); CALCIUM 8.4 MG/DL (8.5-10.1); CHLORIDE 112 MMOL/L (99-107); CREATININE 1.12 MG/DL (0.40-0.90); GLUCOSE 129 MG/DL (70-104); MAGNESIUM 1.5 MG/DL (1.5-2.4); POTASSIUM 3.8 MMOL/L (3.5-5.1); SODIUM 148 MMOL/L (135-145); TOTAL CARBON DIOXIDE 17.3 MMOL/L (24-32); TOTAL PROTEIN 5.8 G/DL (6.4-8.2); eCRCL 50 ML/MIN; eGFR 50 ML/MIN
[2024-10-15 07:43] LABS: BILIRUBIN,DIRECT 1.8 MG/DL (0-0.3)
[2024-10-15] MEDS: metoprolol tartrate 1mg/ml inj IV STA (08:04)
[2024-10-15 08:56] LABS: INR 1.2 INR; PROTHROMBIN TIME 11.9 SECONDS (9.0-12.0)
[2024-10-15 08:59] LABS: % IRON SATURATION 22 % (11-46); IRON 34 UG/DL (49-151); TOTAL IRON BINDING CAPACITY 154 UG/DL (259-388)
[2024-10-15] MEDS ORDERED: VANCOMYCIN 750MG IV in NS 250 ML IV SCH (09:00)
[2024-10-15] MEDS ORDERED: VANCOMYCIN/WATER FOR INJ (PEG) 750MG/150 ML IVPB IV SCH (09:00)
[2024-10-15] MEDS: ampicillin inj 2 GM in normal saline 100ml IV soln 100 ML IV SCH (09:14)
[2024-10-15 09:15] LABS: PRO BRAIN NATRIURETIC PEPTIDE > 30000 PG/ML (0-125)
[2024-10-15] MEDS: HYDROchlorothiazide 25mg tablet PO ONE (10:05)
[2024-10-15] MEDS: spironolactone 50 MG tablet PO ONE (10:05)
[2024-10-15] MEDS ORDERED: desmopressin 0.1mg/ml nasal spray 5ml btl NS ONE (10:10)
[2024-10-15] MEDS: sacubitril/valsartan 49mg-51mg tablet PO STA (10:27)
[2024-10-15] MEDS: metoprolol tartrate 25mg tablet PO ONE (10:30)
--- NOTE | 2024-10-15 10:32 | PROGRESS NOTE ---
Daily Progress Note Providers to CC ~ Erwin-Non Protocol Erwin Indications Met/Not Met: F/C Indications Met Antibiotic Timeout Antibiotic Ordered?: Yes If Yes, Indications: UTI Subjective No acute events overnight. Patient examined at bedside. Patient is arousable, response to verbal stimuli. Admitted with seizure, no seizure activity since admission. Fever resolved. Tele sinus in 110s. CK normal. Lactic acid and procal negative. Transaminitis with elevated indirect/direct t.bili uptrending, pBNP >30,000, slightly uptrended serum Na. INR is 1.2. Portal vein US negative. CT abdomen/pelvis revealed severe hepatomegaly with fatty infiltration of liver, s/p cholecystectomy, no hydronephrosis. Urine culture resulted for Strep agalactiae, abx regimen changed per sensitivity. Preliminary blood culture remains negative. Objective Vital Signs Date Time Temp Pulse Resp B/P (MAP) Pulse Ox O2 Delivery O2 Flow Rate FiO2 10/15/24 08:04 117 10/15/24 02:00 98.0 48 153/105 (121) 98 Room Air 10/13/24 15:03 0 Result Diagram: 10/15/24 0631 10/15/24 0631 Physical Exam General: Generalized weakness, altered, arousable, NAD HEENT: Normocephalic, PERRLA Neck: Supple, trachea midline, no JVD Chest: Clear to auscultation bilaterally Cardiovascular: RRR, S1&S2 GI: Soft and nontender Extremities: No cyanosis/clubbing/or edema RESEARCH TEST ENGINE EVALUATOR: No focal deficits Musculoskeletal: No paraspinal muscle tenderness, no muscle spasm Skin: Warm and intact Coagulation Studies Laboratory Tests Test 10/13/24 02:33 10/15/24 07:56 Activated Partial Thromboplast Time 25 SECONDS (22-32) Prothrombin Time 11.9 SECONDS (9.0-12.0) INR International Normalized Ratio 1.2 INR Coagulation Comments Problem\Assessment\Plan # Sepsis 2/2 UTI- POA # UTI- POA # Electrolyte imbalances # Dehydration # Prerenal BROOKS 2/2 sepsis/vasomotor nephropathy- POA # Seizures 2/2 above # Postictal encephalopathy # Metabolic encephalopathy 2/2 above- POA # Hyperglycemia 2/2 seizures -received IV diazepam 5 mg once in the ED for active seizures, started on IV Keppra, prn Ativan for seizures, on seizure precaution, K/Mg replacement protocol, Erwin, hyper/hypoglycemic protocol -febrile, septic, dehydrated- likely cause of seizure -follow lactic acid, procal, blood cx -10/14: Urine culture resulted for gram positive cocci, continued on vanco -10/15: Urine culture resulted for Strep agalactiae, abx regimen changed to ampicillin per sensitivity # Prerenal BROOKS 2/2 sepsis/vasomotor nephropathy- POA -US abdomen shows no hydronephrosis, renal function improving on IVF # Transaminitis # Cholestasis likely 2/2 acute CHF- POA # Acute decompensated diastolic heart failure- POA # Hx Chronic alcoholism, quit 5 months ago -transaminitis and elevated t.bili; INR 1.1, normal lipase -pt has been consuming a herbal drink with Kava Kava which is hepatotoxic. -US abdomen shows hepatomegaly and hepatic steatosis without CBD dilation; follow portal vein US; hold CT given BROOKS and decreased GFR -10/14: CT abdomen/pelvis reveals severe hepatomegaly with fatty infiltration of liver, s/p cholecystectomy, no hydronephrosis. Portal vein US negative. IVF discontinued. -hepatitis panel pending, follow TTE, pBNP [id number], start Lasix -10/15: transaminitis with elevated indirect/direct t.bili uptrending, pBNP >30,000, serum sodium slightly uptrending. Lasix dose adjusted; NGT contraindicated due to Melida-en-Y; spironolactone, HCTZ, Entresto, metoprolol tart oral on hold until ST eval. # Hypertension -prn hydralazine # Hx Melida-en-Y Code Status: Full code DVT prophylaxis: SCDs Date of Service: Oct 15, 2024 Billing Provider: MARCO A BLANTON Common Visit Codes: [id number] INP/OBS CARE(HIGH) MARCO A BLANTON Oct 15, 2024 10:32
[2024-10-15] MEDS ORDERED: furosemide 20 MG/2 ML vial IV SCH (20:00)
[2024-10-15] MEDS ORDERED: sacubitril/valsartan 49mg-51mg tablet PO SCH (20:00)
[2024-10-15] MEDS ORDERED: metoprolol tartrate 25mg tablet PO SCH (20:00)
[2024-10-15] MEDS: furosemide 20 MG/2 ML vial IV SCH (20:45)
[2024-10-16] VITALS (20 sets, daily range): BP systolic 131–154; BP diastolic 56–105; PULSE 107–126; RESP 11–42; TEMP 96.7–97.6; O2SAT 94–99
[2024-10-16] MEDS: furosemide 40mg/4ml inj IV SCH
[2024-10-16 07:09] LABS: BASOPHILS % (AUTO) 0.1 % (0-1); EOSINOPHILS % (AUTO) 0 % (0-6); HEMATOCRIT 35.5 % (35.0-45.0); HEMOGLOBIN 11.9 g/dl (12.0-16.0); LYMPHOCYTES # (AUTO) 0.5 X10'3 (1.1-4.8); LYMPHOCYTES % (AUTO) 5.2 % (21-51); MEAN CORPUSCULAR HEMOGLOBIN 38.6 PG (27.0-31.0); MEAN CORPUSCULAR HGB CONC 33.4 g/dL (33.0-36.5); MEAN CORPUSCULAR VOLUME 115.5 FL (78-98); MEAN PLATELET VOLUME 10.4 FL (7.4-10.4); MONOCYTES # (AUTO) 0.4 X10'3 (0-0.9); MONOCYTES % (AUTO) 4.5 % (2-12); NEUTROPHILS # (AUTO) 8.7 X10'3 (1.8-7.7); NEUTROPHILS % (AUTO) 90.2 % (42-75); PLATELET COUNT 140 X10'3 (140-440); RED BLOOD COUNT 3.08 X10'6 (4.20-5.60); RED CELL DISTRIBUTION WIDTH 14.8 % (11.5-14.5); WHITE BLOOD COUNT 9.7 X10'3 (4.5-11.0)
[2024-10-16 07:19] LABS: ALANINE AMINOTRANSFERASE 162 U/L (12-78); ALBUMIN 2.3 G/DL (3.4-5.0); ALBUMIN/GLOBULIN RATIO 0.7 (1.1-1.5); ALKALINE PHOSPHATASE 158 IU/L (46-116); ANION GAP 19 (8-16); ASPARTATE AMINO TRANSFERASE 396 U/L (10-37); BILIRUBIN,TOTAL 1.9 MG/DL (0.1-1.0); BLOOD UREA NITROGEN 16 MG/DL (7-18); CALCIUM 7.7 MG/DL (8.5-10.1); CHLORIDE 112 MMOL/L (99-107); CREATININE 1.23 MG/DL (0.40-0.90); GLUCOSE 108 MG/DL (70-104); MAGNESIUM 1.3 MG/DL (1.5-2.4); POTASSIUM 3.2 MMOL/L (3.5-5.1); PRO BRAIN NATRIURETIC PEPTIDE 27633 PG/ML (0-125); SODIUM 150 MMOL/L (135-145); TOTAL CARBON DIOXIDE 19.1 MMOL/L (24-32); TOTAL PROTEIN 5.5 G/DL (6.4-8.2); eCRCL 46 ML/MIN; eGFR 45 ML/MIN
[2024-10-16] MEDS: HYDROchlorothiazide 25mg tablet PO SCH (08:00)
[2024-10-16 08:04] LABS: OCCULT BLOOD STOOL NEGATIVE (Neg)
[2024-10-16] MEDS: spironolactone 25 MG tablet PO SCH (08:30)
[2024-10-16] MEDS ORDERED: potassium Cl 20 mEq SR tablet PO PRN ×2 (11:20)
[2024-10-16] MEDS: metoprolol tartrate 50mg tablet PO ONE (11:25)
--- NOTE | 2024-10-16 12:16 | RADIOLOGY REPORT ---
EXAM: CT CT HEAD INDICATION: Herniation TECHNIQUE: CT of the head without intravenous contrast. Coronal and sagittal reformatted images are s ubmitted. Radiation Dose : 1. Head: CT Dose: CTDI volume is 57.2 mGy. Dose-length product is 1161.6 mGy*cm The dose indicators for CT are the volume Computed Tomography (CT) Dose Index (CTDIvol) and the Dose Length Product (DLP), and are measured in units of mGy and mGy-cm, respectively. These indicators are not patient dose, but values generated from the CT scanner acquisition factors. The report includes radiation exposure data for exposures received during this examination. All CT scans at this medical facility are performed using dose modulation techniques as appropriate to a performed exam including the following: Automated exposure control was utilized; adjustment of the MA and/or KV according to patient size; and use of iterative reconstruction technique. COMPARISON: MR MRI HEAD on DOS: 10/14/24, CT CT STROKE ALERT on DOS: 10/12/24 FINDINGS: There is no evidence of acute intracranial hemorrhage, extra-axial collection, mass effect, midline s hift, herniation or hydrocephalus. There are periventricular and subcortical hypodensities, nonspecific, but likely reflecting sequelae of chronic microvascular ischemic changes. The ventricles, sulci and cisterns are age appropriate. The gunn-white differentiation is intact. The visualized paranasal sinuses and mastoid air cells are clear. No depressed calvarial fracture. The surrounding soft tissues are unremarkable. IMPRESSION: 1. No evidence of acute intracranial abnormality.
[2024-10-16] MEDS: dextrose 5%-water 1,000 ML IV SCH (13:34)
[2024-10-16] MEDS ORDERED: POTASSIUM CHLORIDE 20 MEQ/15 ML oral solution PO PRN ×2 (15:42)
[2024-10-16] MEDS: lactose-reduced food (Ensure Enlive) - 237ml bottle PO SCH (18:00)
--- NOTE | 2024-10-16 18:10 | PROGRESS NOTE ---
Daily Progress Note Providers to CC ~ Antibiotic Timeout Antibiotic Ordered?: Yes If Yes, Indications: UTI Subjective No acute events overnight. Patient examined at bedside. Patient is arousable, response to verbal stimuli. Admitted with seizure, no seizure activity since admission. Fever resolved. Tele sinus in 110s-120s. CK normal. Lactic acid and procal negative, LFT including t.bili downtrending, pBNP downtrending, uptrended serum Na, D5W started. INR is 1.2. Portal vein US negative. CT abdomen/pelvis revealed severe hepatomegaly with fatty infiltration of liver, s/p cholecystectomy, no hydronephrosis. Preliminary blood culture remains negative. Dilated and fixed pupils of OU and more obtunded than previous days, repeat CT head negative for intracranial hemorrhage, extra-axial collection, mass effect, midline shift, herniation or hydrocephalus. MRI unremarkable. Spoke to teleneurologist Dr. Nelson with recommendation for loading dose Keppra followed by increased dose at 1000mg bid. Objective Vital Signs Date Time Temp Pulse Resp B/P (MAP) Pulse Ox O2 Delivery O2 Flow Rate FiO2 10/16/24 17:23 123 10/16/24 08:00 32 94 Room Air 10/16/24 02:00 97.2 131/56 (81) 10/13/24 15:03 0 Result Diagram: 10/16/24 0638 10/16/24 0638 Physical Exam General: Generalized weakness, obtunded, NAD HEENT: Normocephalic, dilated and fixed pupils of OU Neck: Supple, trachea midline, no JVD Chest: Clear to auscultation bilaterally Cardiovascular: RRR, S1&S2 GI: Soft and nontender Extremities: No cyanosis/clubbing/or edema TOOTH CUTTER CLUTCH: No focal deficits Musculoskeletal: No paraspinal muscle tenderness, no muscle spasm Skin: Warm and intact Coagulation Studies Laboratory Tests Test 10/13/24 02:33 10/15/24 07:56 Activated Partial Thromboplast Time 25 SECONDS (22-32) Prothrombin Time 11.9 SECONDS (9.0-12.0) INR International Normalized Ratio 1.2 INR Coagulation Comments Problem\Assessment\Plan # Sepsis 2/2 UTI- POA # UTI- POA # Electrolyte imbalances # Dehydration # Prerenal BROOKS 2/2 sepsis/vasomotor nephropathy- POA # Seizures 2/2 above # Postictal encephalopathy # Metabolic encephalopathy 2/2 above- POA # Hyperglycemia 2/2 seizures -received IV diazepam 5 mg once in the ED for active seizures, started on IV Keppra, prn Ativan for seizures, on seizure precaution, K/Mg replacement protocol, Erwin, hyper/hypoglycemic protocol -febrile, septic, dehydrated- likely cause of seizure -follow lactic acid, procal, blood cx -10/14: Urine culture resulted for gram positive cocci, continued on vanco -10/15: Urine culture resulted for Strep agalactiae, abx regimen changed to ampicillin per sensitivity -10/16: Dilated and fixed pupils of OU, repeat CT head negative for intracranial hemorrhage, extra-axial collection, mass effect, midline shift, herniation or hydrocephalus. MRI unremarkable. -spoke to teleneurologist Dr. Nelson with recommendation for loading dose Keppra followed by increased dose at 1000mg bid. # Prerenal BROOKS 2/2 sepsis/vasomotor nephropathy- POA -US abdomen shows no hydronephrosis, renal function improving on IVF # Transaminitis # Cholestasis likely 2/2 acute CHF- POA # Acute decompensated diastolic heart failure- POA # Hx Chronic alcoholism, quit 5 months ago -transaminitis and elevated t.bili; INR 1.1, normal lipase -pt has been consuming a herbal drink with Kava Kava which is hepatotoxic. -US abdomen shows hepatomegaly and hepatic steatosis without CBD dilation; follow portal vein US; hold CT given BROOKS and decreased GFR -10/14: CT abdomen/pelvis reveals severe hepatomegaly with fatty infiltration of liver, s/p cholecystectomy, no hydronephrosis. Portal vein US negative. IVF discontinued. -hepatitis panel pending, follow TTE, pBNP [id number], start Lasix -10/15: transaminitis with elevated indirect/direct t.bili uptrending, pBNP >30,000, serum sodium slightly uptrending. Lasix dose adjusted; NGT contraindicated due to Melida-en-Y; spironolactone, HCTZ, Entresto, metoprolol tart oral on hold until ST eval. # Hypertension -prn hydralazine # Hx Melida-en-Y Code Status: Full code DVT prophylaxis: SCDs Date of Service: Oct 16, 2024 Billing Provider: HARVINDER,MARCO A S OPERATIONS MANAGEMENT TRAINEE Common Visit Codes: [id number] INP/OBS CARE(HIGH) AMRCO A BLANTON OPERATIONS MANAGEMENT TRAINEE Oct 16, 2024 18:10
--- NOTE | 2024-10-16 18:30 | CARDIOLOGY REPORT ---
APPROVED REPORT EXAM: Comprehensive 2D, Doppler, and color-flow Echocardiogram. Patient Location: [address] Blood Pressure: 153/105 mmHg Heart Rate: 113 bpm Rhythm: Sinus Tachycardia Indications Congestive Heart Failure Elevated ProBNP (23868) Seizures Chronic Alcoholism ALOC Sepsis UTI Hypertension Dehydration Twister Frame Tender: MD Cecy Previous echo: 06/11/2023 [facility] EF:65-70%, mild/mod AI, mild RV, nor LV 2D Dimensions RVDd 3.3 cm LA Diam4.4 cm IVSd 1.0 (0.7-1.1cm) LVDd 5.2 cm PWd 1.0 (0.7-1.1cm) IVSs 1.1 (0.8-1.2cm) RA Minor3.1 cmLVDs 4.4 (2.5-4.0cm) PWs 0.9 (0.8-1.2cm) LVOT Diameter 1.90 (1.8-2.4cm) IVC 13.40 mmFS (%) 17.0 % SV 46.7 ml CO 8.1 L/min M-Mode Dimensions IVSd 0.98 (0.7-1.1cm) LVDd 6.35 (4.0-5.6cm) Aortic Root 2.81 (2.2-3.7cm) PWd 1.11 (0.7-1.1cm) Aortic Cusp Exc 1.65 (1.5-2.0cm) IVSs 1.28 cm MV EPSS 1.2 (<0.5cm) LVDs 5.01 (2.0-3.8cm) FS (%) 25 % PWs 1.10 cm ESV(Teich) 76.0 ml LVEF(%) 41 (>50%) Biplane 2D LA Volumes LA ESV A4C 67.60 mL/m2 Aortic Valve AoV Peak Lucas. 107.9 cm/s AoV VTI 13.7 cm AO Peak GR. 4.7 mmHg AO Mean GR. 2 mmHg LVOT VTI 13.38 cm LVOT Peak Lucas. 85.0 cm/s IJEOMA(VTI)/BSA 2.59 cm2/m2 IJEOMA (VTI) 2.59 cm2 AI P 1/2 Time 376 ms Mitral Valve MV E Velocity 50.9 cm/s MV Peak Gr. 2 mmHg MV DECEL TIME 104 ms MV A Velocity 81.4 cm/s MV Mean Gr. 1 mmHg E/A Ratio 0.6 MV VMax73.3 cm/sMV VMean45.3 cm/s MVA VTI3.72 cm2MV VTI8.3 cm Tricuspid Valve TR P. Velocity 285 cm/s RAP ESTIMATE 10 mmHg TR Peak Gr. 33 mmHg RVSP 43 mmHg LEFT VENTRICLE Normal LV size and wall thickness. Multisegmental wall motion abnormalities. Overall systolic functio n is mild to moderately reduced. Overall LVEF is 40-45%. RIGHT VENTRICLE Right ventricle is mildly dilated with adequate function. Estimated PA systolic pressure is 43 mmHg. ATRIA Left atrium is mildly dilated. The right atrium size is normal. AORTIC VALVE Trileaflet AV appears sclerotic without stenosis. Moderate insufficiency. MITRAL VALVE Mild MV annular calcification without stenosis. Mild regurgitation. TRICUSPID VALVE TV appears structurally normal with mild regurgitation. Elevated right heart pressures as noted above . PULMONIC VALVE Normal PV without stenosis, physiologic insufficiency. GREAT VESSELS The aortic root is normal in size. IVC is normal in size and collapses less than 50% with inspiration . PERICARDIUM Normal pericardium. No pericardial effusion seen. Other Information Study Quality: Adequate Conclusion Normal LV size and wall thickness. Multisegmental wall motion abnormalities. Overall systolic funct ion is mild to moderately reduced. Overall LVEF is 40-45%. Right ventricle is mildly dilated with adequate function. Estimated PA systolic pressure is 43 mmHg. Left atrium is mildly dilated. The right atrium size is normal. Trileaflet AV appears sclerotic without stenosis. Moderate insufficiency. Mild MV annular calcification without stenosis. Mild regurgitation. TV appears structurally normal with mild regurgitation. Normal pericardium. No pericardial effusion seen.
--- NOTE | 2024-10-16 19:00 | RADIOLOGY REPORT ---
PROCEDURE: MR MRI HEAD Indication: herniation COMPARISON: CT CT HEAD on DOS: 10/16/24, MR MRI HEAD on DOS: 10/14/24 TECHNIQUE: Multiplanar multisequence images of the brain are obtained. FINDINGS: Examination degraded by motion. There is no abnormal diffusion restriction. There is mild global cerebral volume loss. There are mil [id number] periventricular and subcortical white matter T2 and FLAIR hyperintense changes. There i s no intracranial hemorrhage. No extra-axial fluid collection, mass effect or midline shift. The vent ricles are midline and normal in size. The cisterns are patent. Normal intracranial flow voids are pr eserved. No abnormal susceptibility signal. The sinuses and mastoids are well pneumatized. The visualized orbits are unremarkable. IMPRESSION: Examination degraded by motion. 1. No acute cerebrovascular ischemia. 2. [id number] chronic microvascular ischemic changes. 3. Mild global cerebral volume loss.
[2024-10-16] MEDS: levetiracetam-NACL1000mg/100ml 100 ML IV STA (19:37)
[2024-10-16] MEDS: K and/or MAG REPLACEMENT MC SCH (20:00)
[2024-10-16] MEDS: diltiazem-NS 100mg/100ml 100 ML IV SCH (20:26)
[2024-10-16] MEDS ORDERED: VANCOMYCIN LEVEL IV ONE (20:30)
--- NOTE | 2024-10-16 21:31 | BLUE [facility] NEURO CONSULT REPORT ---
[facility] Procedure Note [facility] Procedure Note Consult [facility] Note # Demographics Consult Type: General Neurology Patient Location: Inpatient First Name: ERNESTINA Last Name: GABBY Date of : 1965 Age: 59 Gender: Female Facility: [facility] Time of Initial Page ([place] Time): 10/16/2024 17:22 Time of Return Call ([place] Time): 10/16/2024 17:22 # HPI History: Patient is currently admitted for seizures; Seizure history- denied h/o premature , febrile seizures, h/o meningitis/encephalitis, brain surgeries, stroke in the past. # Exam Mental Status: - sleepy Cranial Nerves: - no facial droop # Assessment Impression: - Seizure Admitted for seizures; had breakthrough seizure- recommended to start AEDs # Plan Labs: - comprehensive metabolic panel - CBC - ua - urine drug screen - ESR Imaging: (urgency: routine): - MRI Brain without contrast Diagnostic Test: - EEG Medication: - levetiracetam (Keppra) 1000 mg twice daily -Load with IV Keppra 3 gm once Other: - If patient has any neurological deterioration please call me back immediately - seizure precautions - I have discussed my recommendations with the referring provider - neurology referral as outpatient Additional Recommendations: -No driving till cleared by neurology as outpatient Disposition: continue admission # Demographics First Name: ERNESTINA Last Name: GABBY Facility: [facility] Neuro Consult Order placed for: Yes JOANNA ARELLANO MD Oct 16, 2024 21:31
[2024-10-17] VITALS (45 sets, daily range): BP systolic 113–157; BP diastolic 68–116; PULSE 96–123; RESP 10–42; TEMP 97.5–98.2; O2SAT 91–99
[2024-10-17] MEDS: potassium Cl 40MEQ/1/2NS 520ml 520 ML IV PRN (00:27)
[2024-10-17 05:13] LABS: HBSAG SCREEN Negative (Negative); HEP A AB, IGM Negative (Negative); HEP B CORE AB, TOT Negative (Negative); HEPATITIS C VIRUS ANTIBODY Non Reactive (Non Reactive)
[2024-10-17 05:53] LABS: BASOPHILS % (AUTO) 0.4 % (0-1); EOSINOPHILS % (AUTO) 0 % (0-6); HEMATOCRIT 38.4 % (35.0-45.0); HEMOGLOBIN 12.8 g/dl (12.0-16.0); LYMPHOCYTES # (AUTO) 0.4 X10'3 (1.1-4.8); LYMPHOCYTES % (AUTO) 4.3 % (21-51); MEAN CORPUSCULAR HGB CONC 33.2 g/dL (33.0-36.5); MEAN CORPUSCULAR VOLUME 117.4 FL (78-98); MEAN PLATELET VOLUME 11.1 FL (7.4-10.4); MONOCYTES # (AUTO) 0.6 X10'3 (0-0.9); MONOCYTES % (AUTO) 5.9 % (2-12); NEUTROPHILS # (AUTO) 9.3 X10'3 (1.8-7.7); NEUTROPHILS % (AUTO) 89.4 % (42-75); PLATELET COUNT 146 X10'3 (140-440); RED BLOOD COUNT 3.27 X10'6 (4.20-5.60); RED CELL DISTRIBUTION WIDTH 15.5 % (11.5-14.5); WHITE BLOOD COUNT 10.4 X10'3 (4.5-11.0)
[2024-10-17 06:15] LABS: ALANINE AMINOTRANSFERASE 145 U/L (12-78); ALBUMIN 2.4 G/DL (3.4-5.0); ALBUMIN/GLOBULIN RATIO 0.7 (1.1-1.5); ALKALINE PHOSPHATASE 162 IU/L (46-116); ANION GAP 19 (8-16); ASPARTATE AMINO TRANSFERASE 280 U/L (10-37); BLOOD UREA NITROGEN 16 MG/DL (7-18); BUN/CREATININE RATIO 14.7 (10.0-20.0); CALCIUM 7.6 MG/DL (8.5-10.1); CHLORIDE 111 MMOL/L (99-107); CREATININE 1.09 MG/DL (0.40-0.90); GLUCOSE 119 MG/DL (70-104); PRO BRAIN NATRIURETIC PEPTIDE 28369 PG/ML (0-125); SODIUM 151 MMOL/L (135-145); TOTAL CARBON DIOXIDE 21.3 MMOL/L (24-32); TOTAL PROTEIN 5.9 G/DL (6.4-8.2); eCRCL 51 ML/MIN; eGFR 51 ML/MIN
[2024-10-17 06:24] LABS: POTASSIUM 3.5 MMOL/L (3.5-5.1)
[2024-10-17] MEDS: levetiracetam-NACL1000mg/100ml 100 ML IV SCH (08:51)
--- NOTE | 2024-10-17 08:55 | BLUE SKY NEURO CONSULT REPORT ---
[facility] Procedure Note [facility] Procedure Note Consult [facility] Note # Demographics Type of EEG Read: - Routine EEG - video Patient Location: Inpatient First Name: Trista Last Name: Pia Date of : 1965 Age: 59 Gender: Female Facility: [facility] Time of Initial Page ([place] ): 10/16/2024 18:58 Time of Return Call ([place] Time): 10/16/2024 18:58 # EEG Interpretation Start Time of EEG Read ( Time): 10/16/2024 19:20 Stop Time of EEG Read ([place] ): 10/16/2024 19:40 Duration: 0h 20m Technical Details: - The EEG electrodes were placed using the standard International 10-20 system of electrode placement. Video and an accessory EKG lead were used during the course of this study. - This study was recorded using the [employer] EEG software Indication: - altered mental status # Description Photic Stimulation: NOT Performed Hyperventilation: NOT performed Phases Captured: - awake Symmetry: symmetric Posterior Dominant Rhythm: The record is continuous, of normal amplitude and bilaterally symmetrical. There was no clear posterior dominant rhythm captured. There is a moderate amount of diffuse low amplitude 15-25 Hz beta activity and moderate amount of 4-7 Hz theta activity. Occasional <4 Hz delta activity is present. Amplitude: normal Reactivity: unclear Variability: unclear Continuity: continuous EKG: artifactual # Abnormalities Epileptiform Abnormalities: - NOT present Focal Slowing: no Seizure: - NOT present No push button events Artifact: Movement artifact throughout # Impression Impression: abnormal 1. Diffuse Slowing # Clinical Correlation Clinical Correlation: 1. Diffuse slowing is non-specific and may be seen in the setting of diffuse cerebral dysfunction; such as toxic/metabolic/infectious encephalopathy or heavily sedating medication use. # Demographics First Name: Trista Last Name: Pia Facility: [facility] Neuro Consult Order placed for: Yes KEEGAN JORGENSEN MD Oct 17, 2024 08:54
[2024-10-17] MEDS: ondansetron/PF 4mg/2ml inj IV PRN (09:13)
[2024-10-17] MEDS: mag hydrox/Alum hydrox/simeth 30ml oral suspension PO PRN (10:44)
[2024-10-17] MEDS: magnesium sulf-water 2g/50mL 50 ML IV PRN (13:17)
[2024-10-17] MEDS: magnesium sulf-water 4G/100mL 100 ML IV PRN (16:59)
--- NOTE | 2024-10-17 21:30 | PROGRESS NOTE ---
Daily Progress Note Providers to CC ~ Antibiotic Timeout Antibiotic Ordered?: Yes Subjective And the patient tried to speak to me today however I did not understand what she was trying to communicate the patient is pupils remained dilated her most recent MRI of the brain remains on remarkable- per RN that the patient stopped taking kratom in his withdrawing from this drug as per was the has been informed the patient's RN Objective Vital Signs Date Time Temp Pulse Resp B/P (MAP) Pulse Ox O2 Delivery O2 Flow Rate FiO2 10/17/24 18:30 105 10/17/24 18:09 137/91 10/17/24 15:00 97.8 24 91 Room Air 10/13/24 15:03 0 Result Diagram: 10/17/247 10/17/24 0457 Gen. No acute distress alert, confused HEENT pupils her fixed and dilated at 4 mm Lungs clear to ascultation bilaterally, no wheezes rales or rhonchi appreciated Heart normal sinus rhythm no murmurs rubs or clicks noted Abdomen soft nontender bowel sounds are normoactive Lower extremities no clubbing cyanosis, nor edema appreciated bilaterally Coagulation Studies Laboratory Tests Test 10/13/24 02:33 10/15/24 07:56 Activated Partial Thromboplast Time 25 SECONDS (22-32) Prothrombin Time 11.9 SECONDS (9.0-12.0) INR International Normalized Ratio 1.2 INR Coagulation Comments Problem\Assessment\Plan # Sepsis 2/2 UTI- POA # UTI- POA # Electrolyte imbalances # Dehydration # Seizures 2/2 above # Postictal encephalopathy # Metabolic encephalopathy 2/2 above- POA # Hyperglycemia 2/2 seizures -received IV diazepam 5 mg once in the ED for active seizures, started on IV Keppra, prn Ativan for seizures, on seizure precaution, K/Mg replacement protocol, Erwin, hyper/hypoglycemic protocol -febrile, septic, dehydrated- likely cause of seizure -follow lactic acid, procal, blood cx -10/14: Urine culture resulted for gram positive cocci, continued on vanco -10/15: Urine culture resulted for Strep agalactiae, abx regimen changed to ampicillin per sensitivity -10/16: Dilated and fixed pupils of OU, repeat CT head negative for intracranial hemorrhage, extra-axial collection, mass effect, midline shift, herniation or hydrocephalus. MRI unremarkable. -spoke to teleneurologist Dr. Nelson with recommendation for loading dose Keppra followed by increased dose at 1000mg bid. -10/17 the patient is remains confused and has had two unremarkable MRIs of the head possibly withdrawing from [place] # Prerenal BROOKS 2/2 sepsis/possibly secondary to vasomotor nephropathy- POA -US abdomen shows no hydronephrosis, renal function improving on IVF # Transaminitis # Cholestasis likely 2/2 acute CHF- POA # Acute decompensated HFrEF- POA # Hx Chronic alcoholism, quit 5 months ago -transaminitis and elevated t.bili; INR 1.1, normal lipase -pt has been consuming a herbal drink with Kava Kava which is hepatotoxic. -US abdomen shows hepatomegaly and hepatic steatosis without CBD dilation; follow portal vein US; hold CT given BROOKS and decreased GFR -10/14: CT abdomen/pelvis reveals severe hepatomegaly with fatty infiltration of liver, s/p cholecystectomy, no hydronephrosis. Portal vein US negative. IVF discontinued. -hepatitis panel pending, follow TTE, pBNP [id number], start Lasix -10/15: transaminitis with elevated indirect/direct t.bili uptrending, pBNP >30,000, serum sodium slightly uptrending. Lasix dose adjusted; NGT contraindicated due to Melida-en-Y; spironolactone, HCTZ, Entresto, metoprolol tart oral on hold until ST eval. -10/17 the patient's serum sodium continues to up trend decrease IV Lasix to daily dosing # Hypertension -prn hydralazine # AFib RVR Remains on a Cardizem drip # Hx Melida-en-Y # abdominal pain- Repeat CT scan of the abdomen and pelvis with the overnight oral contrast prep is ordered Code Status: Full code DVT prophylaxis: SCDs Date of Service: Oct 17, 2024 Billing Provider: JAY HARDWICK DO Common Visit Codes: [id number] INP/OBS CARE(HIGH) JAY HARDWICK DO Oct 17, 2024 21:30
[2024-10-17] MEDS: diatr meglu/diatrizoate 30ml oral sol.-(3 dose) bottle PO SCH (23:53)
[2024-10-18] VITALS (12 sets, daily range): BP systolic 105–137; BP diastolic 67–92; PULSE 86–110; RESP 10–24; TEMP 97.7–97.9; O2SAT 91–94
[2024-10-18] MEDS: furosemide 40mg/4ml inj IV SCH (08:00)
[2024-10-18 11:22] LABS: ALANINE AMINOTRANSFERASE 117 U/L (12-78); ALBUMIN 2.1 G/DL (3.4-5.0); ALBUMIN/GLOBULIN RATIO 0.6 (1.1-1.5); ALKALINE PHOSPHATASE 151 IU/L (46-116); ANION GAP 12 (8-16); ASPARTATE AMINO TRANSFERASE 200 U/L (10-37); BILIRUBIN,TOTAL 1.8 MG/DL (0.1-1.0); BLOOD UREA NITROGEN 12 MG/DL (7-18); BUN/CREATININE RATIO 14.6 (10.0-20.0); CHLORIDE 104 MMOL/L (99-107); CREATININE 0.82 MG/DL (0.40-0.90); GLUCOSE 129 MG/DL (70-104); SODIUM 148 MMOL/L (135-145); TOTAL CARBON DIOXIDE 31.6 MMOL/L (24-32); TOTAL PROTEIN 5.6 G/DL (6.4-8.2); eCRCL 68 ML/MIN; eGFR 71 ML/MIN
[2024-10-18 11:27] LABS: POTASSIUM 2.3 MMOL/L (3.5-5.1)
[2024-10-18 15:11] LABS: HBV IU/mL HBV DNA not detected IU/mL (.)
--- NOTE | 2024-10-18 23:27 | PROGRESS NOTE ---
Daily Progress Note Providers to CC ~ Antibiotic Timeout Antibiotic Ordered?: Yes Subjective The patient is also son became oriented this afternoon she has been confused per nursing staff this morning when I spoke to her she was oriented to self place which is significantly improvement hopefully she turned the corner Objective Vital Signs Date Time Temp Pulse Resp B/P (MAP) Pulse Ox O2 Delivery O2 Flow Rate FiO2 10/18/24 18:30 81 10/18/24 15:00 97.8 120/75 (90) 10/18/24 11:00 20 93 Room Air Result Diagram: 10/17/24 0457 10/18/24 1030 Gen. No acute distress alert, to person and place HEENT pupils no longer dilated Lungs clear to ascultation bilaterally, no wheezes rales or rhonchi appreciated Heart normal sinus rhythm no murmurs rubs or clicks noted Abdomen soft nontender bowel sounds are normoactive Lower extremities no clubbing cyanosis, nor edema appreciated bilaterally Coagulation Studies Laboratory Tests Test 10/13/24 02:33 10/15/24 07:56 Activated Partial Thromboplast Time 25 SECONDS (22-32) Prothrombin Time 11.9 SECONDS (9.0-12.0) INR International Normalized Ratio 1.2 INR Coagulation Comments Problem\Assessment\Plan # Sepsis 2/2 UTI- POA # UTI- POA # Electrolyte imbalances # Dehydration # Seizures 2/2 above # Postictal encephalopathy # Metabolic encephalopathy 2/2 above- POA # Hyperglycemia 2/2 seizures -received IV diazepam 5 mg once in the ED for active seizures, started on IV Keppra, prn Ativan for seizures, on seizure precaution, K/Mg replacement protocol, Erwin, hyper/hypoglycemic protocol -febrile, septic, dehydrated- likely cause of seizure -follow lactic acid, procal, blood cx -10/14: Urine culture resulted for gram positive cocci, continued on vanco -10/15: Urine culture resulted for Strep agalactiae, abx regimen changed to ampicillin per sensitivity -10/16: Dilated and fixed pupils of OU, repeat CT head negative for intracranial hemorrhage, extra-axial collection, mass effect, midline shift, herniation or hydrocephalus. MRI unremarkable. -spoke to teleneurologist Dr. Nelson with recommendation for loading dose Keppra followed by increased dose at 1000mg bid. -10/17 the patient is remains confused and has had two unremarkable MRIs of the head possibly withdrawing from [place] -10/18 patient is oriented to self and place today significantly improved # Prerenal BROOKS 2/2 sepsis/possibly secondary to vasomotor nephropathy- POA -US abdomen shows no hydronephrosis, renal function improving on IVF 10/18 resolved # Transaminitis # Cholestasis likely 2/2 acute CHF- POA # Acute decompensated HFrEF- POA # Hx Chronic alcoholism, quit 5 months ago -transaminitis and elevated t.bili; INR 1.1, normal lipase -pt has been consuming a herbal drink with Kava Kava which is hepatotoxic. -US abdomen shows hepatomegaly and hepatic steatosis without CBD dilation; follow portal vein US; hold CT given BROOKS and decreased GFR -10/14: CT abdomen/pelvis reveals severe hepatomegaly with fatty infiltration of liver, s/p cholecystectomy, no hydronephrosis. Portal vein US negative. IVF discontinued. -hepatitis panel pending, follow TTE, pBNP [id number], start Lasix -10/15: transaminitis with elevated indirect/direct t.bili uptrending, pBNP >30,000, serum sodium slightly uptrending. Lasix dose adjusted; NGT contraindicated due to Melida-en-Y; spironolactone, HCTZ, Entresto, metoprolol tart oral on hold until ST eval. -10/17 the patient's serum sodium continues to up trend decrease IV Lasix to daily dosing -10/18 serum sodium improved to 148 today and transaminitis is improving as well # Hypertension -prn hydralazine # AFib RVR Remains on a Cardizem drip Likely DC diltiazem drip in the morning and start p.o. diltiazem the patient is still is improved in regards to cognition. # Hx Melida-en-Y # abdominal pain- Resolved no need for a CTA Code Status: Full code DVT prophylaxis: SCDs Date of Service: Oct 18, 2024 Billing Provider: JAY HARDWICK DO Common Visit Codes: [id number] INP/OBS CARE(HIGH) JAY HARDWICK DO Oct 18, 2024 23:27
[2024-10-19] VITALS (13 sets, daily range): BP systolic 104–149; BP diastolic 62–92; PULSE 68–117; RESP 10–27; TEMP 97.2–97.8; O2SAT 98–99
[2024-10-19 05:29] LABS: BASOPHILS % (AUTO) 0.4 % (0-1); EOSINOPHILS % (AUTO) 0 % (0-6); HEMOGLOBIN 11.9 g/dl (12.0-16.0); LYMPHOCYTES # (AUTO) 0.8 X10'3 (1.1-4.8); MEAN CORPUSCULAR VOLUME 114.9 FL (78-98); NEUTROPHILS # (AUTO) 2.6 X10'3 (1.8-7.7)
[2024-10-19 05:31] LABS: HEMATOCRIT 35.7 % (35.0-45.0); LYMPHOCYTES % (AUTO) 18.4 % (21-51); MEAN CORPUSCULAR HEMOGLOBIN 38.2 PG (27.0-31.0); MEAN CORPUSCULAR HGB CONC 33.3 g/dL (33.0-36.5); MEAN PLATELET VOLUME 11.5 FL (7.4-10.4); MONOCYTES # (AUTO) 0.8 X10'3 (0-0.9); MONOCYTES % (AUTO) 19.1 % (2-12); NEUTROPHILS % (AUTO) 62.1 % (42-75); PLATELET COUNT 121 X10'3 (140-440); RED BLOOD COUNT 3.11 X10'6 (4.20-5.60); WHITE BLOOD COUNT 4.2 X10'3 (4.5-11.0)
[2024-10-19 05:39] LABS: ALANINE AMINOTRANSFERASE 108 U/L (12-78); ALBUMIN 2.1 G/DL (3.4-5.0); ALBUMIN/GLOBULIN RATIO 0.6 (1.1-1.5); ALKALINE PHOSPHATASE 153 IU/L (46-116); ANION GAP 8 (8-16); ASPARTATE AMINO TRANSFERASE 178 U/L (10-37); BILIRUBIN,TOTAL 1.8 MG/DL (0.1-1.0); BLOOD UREA NITROGEN 11 MG/DL (7-18); BUN/CREATININE RATIO 12.9 (10.0-20.0); CALCIUM 8.2 MG/DL (8.5-10.1); CHLORIDE 106 MMOL/L (99-107); CREATININE 0.85 MG/DL (0.40-0.90); GLUCOSE 106 MG/DL (70-104); SODIUM 144 MMOL/L (135-145); TOTAL CARBON DIOXIDE 29.9 MMOL/L (24-32); TOTAL PROTEIN 5.4 G/DL (6.4-8.2); eCRCL 66 ML/MIN; eGFR 68 ML/MIN
[2024-10-19 06:49] LABS: LARGE PLATELETS FEW; PLATELET ESTIMATE DECREASED; TOTAL CELLS COUNTED 100
[2024-10-19] MEDS: spironolactone 50 MG tablet PO SCH (09:37)
[2024-10-19] MEDS: sacubitril/valsartan 49mg-51mg tablet PO SCH (09:37)
[2024-10-19] MEDS: metoprolol tartrate 50mg tablet PO SCH (09:39)
[2024-10-19] MEDS ORDERED: potassium Cl 20 mEq SR tablet PO PRN ×2 (14:45)
[2024-10-19] MEDS ORDERED: magnesium sulf-water 4G/100mL 100 ML IV PRN (14:45)
[2024-10-19] MEDS ORDERED: magnesium Cl slow-release 64mg tablet PO PRN (14:45)
[2024-10-19] MEDS ORDERED: POTASSIUM BICARB 20meq eff tab 20 MEQ TABLET.EFF PO PRN (15:38)
[2024-10-19] MEDS: POTASSIUM BICARB 20meq eff tab 20 MEQ TABLET.EFF PO PRN (16:52)
[2024-10-19] MEDS: K and/or MAG REPLACEMENT MC SCH (20:00)
[2024-10-19] MEDS: POTASSIUM CHLORIDE 20 MEQ/15 ML oral solution PO PRN (21:43)
--- NOTE | 2024-10-19 22:48 | PROGRESS NOTE ---
Daily Progress Note Providers to CC ~ Antibiotic Timeout Antibiotic Ordered?: Yes Subjective The patient remains confused today she was able to tell me her name her father was at bedside. The patient was poor p.o. intake however I do not think she would tolerate a [place] feeding tube and it was highly likely to pull the feeding tube out- this is the 4th time physical therapy has triaged the patient Objective Vital Signs Date Time Temp Pulse Resp B/P (MAP) Pulse Ox O2 Delivery O2 Flow Rate FiO2 10/19/24 20:00 15 99 Room Air 10/19/24 19:56 83 10/19/24 18:00 120/81 (94) 10/19/24 14:00 97.5 Result Diagram: 10/19/24 0505 10/19/24 0505 Gen. No acute distress alert, to person and place HEENT pupils no longer dilated Lungs clear to ascultation bilaterally, no wheezes rales or rhonchi appreciated Heart normal sinus rhythm no murmurs rubs or clicks noted Abdomen soft nontender bowel sounds are normoactive Lower extremities no clubbing cyanosis, nor edema appreciated bilaterally Coagulation Studies Laboratory Tests Test 10/13/24 02:33 10/15/24 07:56 Activated Partial Thromboplast Time 25 SECONDS (22-32) Prothrombin Time 11.9 SECONDS (9.0-12.0) INR International Normalized Ratio 1.2 INR Coagulation Comments Problem\Assessment\Plan # Sepsis 2/2 UTI- POA # UTI- POA # Electrolyte imbalances # Dehydration # Seizures 2/2 above # Postictal encephalopathy # Metabolic encephalopathy 2/2 above- POA # Hyperglycemia 2/2 seizures -received IV diazepam 5 mg once in the ED for active seizures, started on IV Keppra, prn Ativan for seizures, on seizure precaution, K/Mg replacement protocol, Erwin, hyper/hypoglycemic protocol -febrile, septic, dehydrated- likely cause of seizure -follow lactic acid, procal, blood cx -10/14: Urine culture resulted for gram positive cocci, continued on vanco -10/15: Urine culture resulted for Strep agalactiae, abx regimen changed to ampicillin per sensitivity -10/16: Dilated and fixed pupils of OU, repeat CT head negative for intracranial hemorrhage, extra-axial collection, mass effect, midline shift, herniation or hydrocephalus. MRI unremarkable. -spoke to teleneurologist Dr. Nelson with recommendation for loading dose Keppra followed by increased dose at 1000mg bid. -10/17 the patient is remains confused and has had two unremarkable MRIs of the head possibly withdrawing from [place] -10/18 patient is oriented to self and place today significantly improved -10/19 remains confused # Prerenal BROOKS 2/2 sepsis/possibly secondary to vasomotor nephropathy- POA -US abdomen shows no hydronephrosis, renal function improving on IVF 10/18 resolved # Transaminitis # Cholestasis likely 2/2 acute CHF- POA # Acute decompensated HFrEF- POA # Hx Chronic alcoholism, quit 5 months ago -transaminitis and elevated t.bili; INR 1.1, normal lipase -pt has been consuming a herbal drink with Kava Kava which is hepatotoxic. -US abdomen shows hepatomegaly and hepatic steatosis without CBD dilation; follow portal vein US; hold CT given BROOKS and decreased GFR -10/14: CT abdomen/pelvis reveals severe hepatomegaly with fatty infiltration of liver, s/p cholecystectomy, no hydronephrosis. Portal vein US negative. IVF discontinued. -hepatitis panel pending, follow TTE, pBNP [id number], start Lasix -10/15: transaminitis with elevated indirect/direct t.bili uptrending, pBNP >30,000, serum sodium slightly uptrending. Lasix dose adjusted; NGT contraindicated due to Melida-en-Y; spironolactone, HCTZ, Entresto, metoprolol tart oral on hold until ST eval. -10/17 the patient's serum sodium continues to up trend decrease IV Lasix to daily dosing -10/18 serum sodium improved to 148 today and transaminitis is improving as well -10/19 liver function slightly improving and sodium has normalized # Hypertension -prn hydralazine # AFib RVR Remains on a Cardizem drip Likely DC diltiazem drip in the morning and start p.o. diltiazem the patient is still is improved in regards to cognition. # Hx Melida-en-Y # abdominal pain- Resolved no need for a CTA Code Status: Full code DVT prophylaxis: SCDs Date of Service: Oct 19, 2024 Billing Provider: JAY HARDWICK DO Common Visit Codes: [id number] INP/OBS CARE(HIGH) JAY HARDWICK DO Oct 19, 2024 22:48
[2024-10-20] VITALS (10 sets, daily range): BP systolic 101–139; BP diastolic 71–96; PULSE 73–87; RESP 12–28; TEMP 97.4–98.1; O2SAT 85–99
[2024-10-20 07:19] LABS: BASOPHILS # (AUTO) 0.1 X10'3 (0-0.2); EOSINOPHILS % (AUTO) 0 % (0-6); HEMOGLOBIN 12.5 g/dl (12.0-16.0); NEUTROPHILS # (AUTO) 2.8 X10'3 (1.8-7.7); WHITE BLOOD COUNT 5.6 X10'3 (4.5-11.0)
[2024-10-20 07:20] LABS: BASOPHILS % (AUTO) 0.9 % (0-1); HEMATOCRIT 36.8 % (35.0-45.0); LYMPHOCYTES # (AUTO) 1.5 X10'3 (1.1-4.8); LYMPHOCYTES % (AUTO) 26.6 % (21-51); MEAN CORPUSCULAR HEMOGLOBIN 38.4 PG (27.0-31.0); MONOCYTES # (AUTO) 1.3 X10'3 (0-0.9); MONOCYTES % (AUTO) 23.5 % (2-12); PLATELET COUNT 153 X10'3 (140-440); RED BLOOD COUNT 3.26 X10'6 (4.20-5.60); RED CELL DISTRIBUTION WIDTH 15.1 % (11.5-14.5)
[2024-10-20 08:00] LABS: ALANINE AMINOTRANSFERASE 86 U/L (12-78); ALBUMIN/GLOBULIN RATIO 0.6 (1.1-1.5); ALKALINE PHOSPHATASE 148 IU/L (46-116); ANION GAP 9 (8-16); ASPARTATE AMINO TRANSFERASE 100 U/L (10-37); BILIRUBIN,TOTAL 1.6 MG/DL (0.1-1.0); BLOOD UREA NITROGEN 6 MG/DL (7-18); BUN/CREATININE RATIO 8.1 (10.0-20.0); CHLORIDE 102 MMOL/L (99-107); CREATININE 0.74 MG/DL (0.40-0.90); GLUCOSE 110 MG/DL (70-104); MAGNESIUM 1.2 MG/DL (1.5-2.4); POTASSIUM 3.1 MMOL/L (3.5-5.1); SODIUM 139 MMOL/L (135-145); TOTAL CARBON DIOXIDE 28.3 MMOL/L (24-32); TOTAL PROTEIN 5.4 G/DL (6.4-8.2); eCRCL 76 ML/MIN; eGFR 80 ML/MIN
[2024-10-20 08:11] LABS: NUCLEATED RED BLOOD CELLS 1 /100WBC (0-0); TOTAL CELLS COUNTED 100
[2024-10-20 08:12] LABS: ELLIPTOCYTES FEW; HYPOCHROMASIA 1+; STOMATOCYTES FEW; TARGET CELLS FEW
[2024-10-20] MEDS: diltiazem CD 120mg capsule (once-daily) PO SCH (08:21)
[2024-10-20] MEDS: POTASSIUM CHLORIDE 20 MEQ/15 ML oral solution PO PRN (10:39)
[2024-10-20 10:47] LABS: PLATELET ESTIMATE NORMAL
[2024-10-20] MEDS ORDERED: Dextrose 10%-water IV solution 1,000 ML IV PRN (17:15)
[2024-10-20] MEDS: magnesium sulf-water 2g/50mL 50 ML IV PRN (18:47)
[2024-10-20] MEDS: MVI, adult No.4 with vit. K 10 ML in dextrose 5% water 500ml 500 ML IV SCH (21:11)
[2024-10-20] MEDS: fat emulsion 20% inj. 100 ML IV SCH (21:11)
[2024-10-20] MEDS: potassium Cl 40MEQ/1/2NS 520ml 520 ML IV PRN (21:50)
--- NOTE | 2024-10-20 22:18 | PROGRESS NOTE ---
Daily Progress Note Providers to CC ~ Antibiotic Timeout Antibiotic Ordered?: Yes Subjective The patient's has been was at bedside and spoke to his she remains confused but is significantly improved in her cognition from that of three days ago unsure if this is the patient's new baseline Objective Vital Signs Date Time Temp Pulse Resp B/P (MAP) Pulse Ox O2 Delivery O2 Flow Rate FiO2 10/20/24 20:12 86 10/20/24 15:00 97.6 16 105/78 (87) 99 Room Air Result Diagram: 10/20/2462310/20/24623 Gen. No acute distress alert, to person and place HEENT pupils no longer dilated Lungs clear to ascultation bilaterally, no wheezes rales or rhonchi appreciated Heart normal sinus rhythm no murmurs rubs or clicks noted Abdomen soft nontender bowel sounds are normoactive Lower extremities no clubbing cyanosis, nor edema appreciated bilaterally Coagulation Studies Laboratory Tests Test 10/13/24 02:33 10/15/24 07:56 Activated Partial Thromboplast Time 25 SECONDS (22-32) Prothrombin Time 11.9 SECONDS (9.0-12.0) INR International Normalized Ratio 1.2 INR Coagulation Comments Problem\Assessment\Plan # Sepsis 2/2 UTI- POA # UTI- POA # Electrolyte imbalances # Dehydration # Seizures 2/2 above # Postictal encephalopathy # Metabolic encephalopathy 2/2 above- POA # Hyperglycemia 2/2 seizures -received IV diazepam 5 mg once in the ED for active seizures, started on IV Keppra, prn Ativan for seizures, on seizure precaution, K/Mg replacement protocol, Erwin, hyper/hypoglycemic protocol -febrile, septic, dehydrated- likely cause of seizure -follow lactic acid, procal, blood cx -10/14: Urine culture resulted for gram positive cocci, continued on vanco -10/15: Urine culture resulted for Strep agalactiae, abx regimen changed to ampicillin per sensitivity -10/16: Dilated and fixed pupils of OU, repeat CT head negative for intracranial hemorrhage, extra-axial collection, mass effect, midline shift, herniation or hydrocephalus. MRI unremarkable. -spoke to teleneurologist Dr. Nelson with recommendation for loading dose Keppra followed by increased dose at 1000mg bid. -10/17 the patient is remains confused and has had two unremarkable MRIs of the head [facility] -10/18 patient is oriented to self and place today significantly improved -10/19 remains confused -10/20 stable # Prerenal BROOKS 2/2 sepsis/possibly secondary to vasomotor nephropathy- POA -US abdomen shows no hydronephrosis, renal function improving on IVF 10/18 resolved # Transaminitis # Cholestasis likely 2/2 acute CHF- POA # Acute decompensated HFrEF- POA # Hx Chronic alcoholism, quit 5 months ago -transaminitis and elevated t.bili; INR 1.1, normal lipase -pt has been consuming a herbal drink with Kava Kava which is hepatotoxic. -US abdomen shows hepatomegaly and hepatic steatosis without CBD dilation; follow portal vein US; hold CT given BROOKS and decreased GFR -10/14: CT abdomen/pelvis reveals severe hepatomegaly with fatty infiltration of liver, s/p cholecystectomy, no hydronephrosis. Portal vein US negative. IVF discontinued. -hepatitis panel pending, follow TTE, pBNP [id number], start Lasix -10/15: transaminitis with elevated indirect/direct t.bili uptrending, pBNP >30,000, serum sodium slightly uptrending. Lasix dose adjusted; NGT contraindicated due to Melida-en-Y; spironolactone, HCTZ, Entresto, metoprolol tart oral on hold until . -10/17 the patient's serum sodium continues to up trend decrease IV Lasix to daily dosing -10/18 serum sodium improved to 148 today and transaminitis is improving as well -10/19 liver function slightly improving and sodium has normalized -10/20 continues to improve # Hypertension -prn hydralazine # AFib RVR Remains on a Cardizem drip Likely DC diltiazem drip in the morning and start p.o. diltiazem the patient is still is improved in regards to cognition. # Hx Melida-en-Y # abdominal pain- Resolved no need for a CTA # nutrition Start PPN Code Status: Full code DVT prophylaxis: SCDs Date of Service: Oct 20, 2024 Billing Provider: JAY HARDWICK DO Common Visit Codes: [id number] INP/OBS CARE(HIGH) JAY HARDWICK DO Oct 20, 2024 22:18
[2024-10-21] VITALS (8 sets, daily range): BP systolic 119–145; BP diastolic 77–87; PULSE 62–85; RESP 11–25; TEMP 97–98.4; O2SAT 94–98
[2024-10-21] MEDS: ibuprofen tablet 400 MG TABLET PO ONE (05:45)
[2024-10-21 06:34] LABS: BASOPHILS # (AUTO) 0.1 X10'3 (0-0.2); EOSINOPHILS % (AUTO) 0 % (0-6); HEMOGLOBIN 11.8 g/dl (12.0-16.0)
[2024-10-21 06:37] LABS: BASOPHILS % (AUTO) 1.4 % (0-1); HEMATOCRIT 35.6 % (35.0-45.0); LYMPHOCYTES # (AUTO) 1.7 X10'3 (1.1-4.8); LYMPHOCYTES % (AUTO) 30.8 % (21-51); MEAN CORPUSCULAR HEMOGLOBIN 37.7 PG (27.0-31.0); MEAN CORPUSCULAR HGB CONC 33.2 g/dL (33.0-36.5); MEAN CORPUSCULAR VOLUME 113.5 FL (78-98); MEAN PLATELET VOLUME 11.7 FL (7.4-10.4); MONOCYTES # (AUTO) 1.1 X10'3 (0-0.9); NEUTROPHILS # (AUTO) 2.6 X10'3 (1.8-7.7); NEUTROPHILS % (AUTO) 47.8 % (42-75); PLATELET COUNT 165 X10'3 (140-440); RED BLOOD COUNT 3.13 X10'6 (4.20-5.60); RED CELL DISTRIBUTION WIDTH 15.2 % (11.5-14.5); WHITE BLOOD COUNT 5.5 X10'3 (4.5-11.0)
[2024-10-21 06:56] LABS: ALANINE AMINOTRANSFERASE 63 U/L (12-78); ALBUMIN 1.9 G/DL (3.4-5.0); ALBUMIN/GLOBULIN RATIO 0.6 (1.1-1.5); ALKALINE PHOSPHATASE 130 IU/L (46-116); ANION GAP 10 (8-16); ASPARTATE AMINO TRANSFERASE 64 U/L (10-37); BILIRUBIN,TOTAL 1.1 MG/DL (0.1-1.0); BLOOD UREA NITROGEN 6 MG/DL (7-18); BUN/CREATININE RATIO 7.2 (10.0-20.0); CHLORIDE 104 MMOL/L (99-107); CREATININE 0.83 MG/DL (0.40-0.90); GLUCOSE 168 MG/DL (70-104); MAGNESIUM 1.7 MG/DL (1.5-2.4); PHOSPHORUS 3.1 MG/DL (2.3-4.5); POTASSIUM 4.1 MMOL/L (3.5-5.1); SODIUM 139 MMOL/L (135-145); TOTAL CARBON DIOXIDE 25.5 MMOL/L (24-32); TOTAL PROTEIN 5.2 G/DL (6.4-8.2); eCRCL 67 ML/MIN; eGFR 70 ML/MIN
--- NOTE | 2024-10-21 22:48 | PROGRESS NOTE ---
Daily Progress Note Providers to CC ~ Antibiotic Timeout Antibiotic Ordered?: No Subjective The patient remains confused and restraints were placed today I have ordered a serum ammonia level for the morning Objective Vital Signs Date Time Temp Pulse Resp B/P (MAP) Pulse Ox O2 Delivery O2 Flow Rate FiO2 10/21/24 20:19 97 10/21/24 15:00 97.9 18 132/78 (96) 97 Room Air Result Diagram: 10/21/24 0600 10/21/24 0600 Gen. No acute distress alert, to person HEENT pupils no longer dilated Lungs clear to ascultation bilaterally, no wheezes rales or rhonchi appreciated Heart normal sinus rhythm no murmurs rubs or clicks noted Abdomen soft nontender bowel sounds are normoactive Lower extremities no clubbing cyanosis, nor edema appreciated bilaterally Coagulation Studies Laboratory Tests Test 10/13/24 02:33 10/15/24 07:56 Activated Partial Thromboplast Time 25 SECONDS (22-32) Prothrombin Time 11.9 SECONDS (9.0-12.0) INR International Normalized Ratio 1.2 INR Coagulation Comments Problem\Assessment\Plan # Sepsis 2/2 UTI- POA # UTI- POA # Electrolyte imbalances # Dehydration # Seizures 2/2 above # Postictal encephalopathy # Metabolic encephalopathy 2/2 above- POA # Hyperglycemia 2/2 seizures -received IV diazepam 5 mg once in the ED for active seizures, started on IV Keppra, prn Ativan for seizures, on seizure precaution, K/Mg replacement protocol, Erwin, hyper/hypoglycemic protocol -febrile, septic, dehydrated- likely cause of seizure -follow lactic acid, procal, blood cx -10/14: Urine culture resulted for gram positive cocci, continued on vanco -10/15: Urine culture resulted for Strep agalactiae, abx regimen changed to ampicillin per sensitivity -10/16: Dilated and fixed pupils of OU, repeat CT head negative for intracranial hemorrhage, extra-axial collection, mass effect, midline shift, herniation or hydrocephalus. MRI unremarkable. -spoke to teleneurologist Dr. Nelson with recommendation for loading dose Keppra followed by increased dose at 1000mg bid. -10/17 the patient is remains confused and has had two unremarkable MRIs of the head possibly withdrawing from [place] -10/18 patient is oriented to self and place today significantly improved -10/19 remains confused -10/20 stable -10/21 serum ammonia level is ordered # Prerenal BROOKS 2/2 sepsis/possibly secondary to vasomotor nephropathy- POA -US abdomen shows no hydronephrosis, renal function improving on IVF 10/18 resolved # Transaminitis # Cholestasis likely 2/2 acute CHF- POA # Acute decompensated HFrEF- POA # Hx Chronic alcoholism, quit 5 months ago -transaminitis and elevated t.bili; INR 1.1, normal lipase -pt has been consuming a herbal drink with Kava Kava which is hepatotoxic. -US abdomen shows hepatomegaly and hepatic steatosis without CBD dilation; follow portal vein US; hold CT given BROOKS and decreased GFR -10/14: CT abdomen/pelvis reveals severe hepatomegaly with fatty infiltration of liver, s/p cholecystectomy, no hydronephrosis. Portal vein US negative. IVF discontinued. -hepatitis panel pending, follow TTE, pBNP [id number], start Lasix -10/15: transaminitis with elevated indirect/direct t.bili uptrending, pBNP >30,000, serum sodium slightly uptrending. Lasix dose adjusted; NGT contraindicated due to Melida-en-Y; spironolactone, HCTZ, Entresto, metoprolol tart oral on hold until ST eval. -10/17 the patient's serum sodium continues to up trend decrease IV Lasix to daily dosing -10/18 serum sodium improved to 148 today and transaminitis is improving as well -10/19 liver function slightly improving and sodium has normalized -10/20 continues to improve -10/21 almost normalized # Hypertension -prn hydralazine # AFib RVR Remains on a Cardizem drip Likely DC diltiazem drip in the morning and start p.o. diltiazem the patient is still is improved in regards to cognition. # Hx Melida-en-Y # abdominal pain- Resolved no need for a CTA # nutrition Start PPN Code Status: Full code DVT prophylaxis: SCDs Date of Service: Oct 21, 2024 Billing Provider: JAY HARDWICK DO Common Visit Codes: [id number] INP/OBS CARE(HIGH) JAY HARDWICK DO Oct 21, 2024 22:48
[2024-10-22] VITALS (8 sets, daily range): BP systolic 98–170; BP diastolic 51–101; PULSE 54–119; RESP 11–23; TEMP 97–98.4; O2SAT 93–100
[2024-10-22 06:03] LABS: BASOPHILS # (AUTO) 0.1 X10'3 (0-0.2); EOSINOPHILS % (AUTO) 0 % (0-6); HEMOGLOBIN 13.1 g/dl (12.0-16.0); LYMPHOCYTES # (AUTO) 1.7 X10'3 (1.1-4.8)
[2024-10-22 06:05] LABS: BASOPHILS % (AUTO) 0.9 % (0-1); HEMATOCRIT 38.9 % (35.0-45.0); MEAN CORPUSCULAR HEMOGLOBIN 37.9 PG (27.0-31.0); MEAN CORPUSCULAR HGB CONC 33.8 g/dL (33.0-36.5); MEAN CORPUSCULAR VOLUME 112.2 FL (78-98); MEAN PLATELET VOLUME 12.4 FL (7.4-10.4); MONOCYTES # (AUTO) 1.4 X10'3 (0-0.9); MONOCYTES % (AUTO) 18.9 % (2-12); NEUTROPHILS % (AUTO) 56.2 % (42-75); PLATELET COUNT 206 X10'3 (140-440); RED BLOOD COUNT 3.46 X10'6 (4.20-5.60); RED CELL DISTRIBUTION WIDTH 15.1 % (11.5-14.5); WHITE BLOOD COUNT 7.2 X10'3 (4.5-11.0)
[2024-10-22 06:07] LABS: ALANINE AMINOTRANSFERASE 59 U/L (12-78); ALBUMIN 2.1 G/DL (3.4-5.0); ALBUMIN/GLOBULIN RATIO 0.6 (1.1-1.5); ALKALINE PHOSPHATASE 136 IU/L (46-116); ANION GAP 9 (8-16); ASPARTATE AMINO TRANSFERASE 41 U/L (10-37); BILIRUBIN,TOTAL 0.9 MG/DL (0.1-1.0); BLOOD UREA NITROGEN 21 MG/DL (7-18); CALCIUM 8.6 MG/DL (8.5-10.1); CHLORIDE 102 MMOL/L (99-107); GLUCOSE 123 MG/DL (70-104); MAGNESIUM 1.5 MG/DL (1.5-2.4); PHOSPHORUS 4.6 MG/DL (2.3-4.5); POTASSIUM 3.8 MMOL/L (3.5-5.1); SODIUM 136 MMOL/L (135-145); TOTAL CARBON DIOXIDE 24.6 MMOL/L (24-32); TOTAL PROTEIN 5.9 G/DL (6.4-8.2); eCRCL 80 ML/MIN; eGFR 85 ML/MIN
[2024-10-22 07:21] LABS: PLATELET ESTIMATE NORMAL
[2024-10-22 07:22] LABS: ELLIPTOCYTES FEW; POLYCHROMASIA 1+; TARGET CELLS FEW
[2024-10-22] MEDS: acetaminophen 325mg tablet PO PRN ×2 (16:04→20:57)
--- NOTE | 2024-10-22 17:29 | PROGRESS NOTE ---
Daily Progress Note Providers to CC ~ Antibiotic Timeout Antibiotic Ordered?: Yes Subjective The patient was asleep when I evaluated her she has a rough night and was agitated- the patient's has been is at bedside and informed me that the patient X confused when she is tired in his acted like this prior hospitalizations and he is not concerned about her mental status however he is concerned about her lack of intake and asked about advancing her diet for which I informed him speech therapy will see his tomorrow. I shared with the patient can have a J-tube the patient has had a prior Melida-en-Y gastric bypass. Objective Vital Signs Date Time Temp Pulse Resp B/P (MAP) Pulse Ox O2 Delivery O2 Flow Rate FiO2 10/22/24 11:00 98.0 107 18 124/81 (95) 99 Room Air 10/22/24 08:00 0.0 Result Diagram: 10/22/2444510/22/246 Gen. No acute distress alert, to person HEENT pupils no longer dilated Lungs clear to ascultation bilaterally, no wheezes rales or rhonchi appreciated Heart normal sinus rhythm no murmurs rubs or clicks noted Abdomen soft nontender bowel sounds are normoactive Lower extremities no clubbing cyanosis, nor edema appreciated bilaterally Coagulation Studies Laboratory Tests Test 10/13/24 02:33 10/15/24 07:56 Activated Partial Thromboplast Time 25 SECONDS (22-32) Prothrombin Time 11.9 SECONDS (9.0-12.0) INR International Normalized Ratio 1.2 INR Coagulation Comments Problem\Assessment\Plan # Sepsis 2/2 UTI- POA # UTI- POA # Electrolyte imbalances # Dehydration # Seizures 2/2 above # Postictal encephalopathy # Metabolic encephalopathy 2/2 above- POA # Hyperglycemia 2/2 seizures -received IV diazepam 5 mg once in the ED for active seizures, started on IV Keppra, prn Ativan for seizures, on seizure precaution, K/Mg replacement protocol, Erwin, hyper/hypoglycemic protocol -febrile, septic, dehydrated- likely cause of seizure -follow lactic acid, procal, blood cx -10/14: Urine culture resulted for gram positive cocci, continued on vanco -10/15: Urine culture resulted for Strep agalactiae, abx regimen changed to ampicillin per sensitivity -10/16: Dilated and fixed pupils of OU, repeat CT head negative for intracranial hemorrhage, extra-axial collection, mass effect, midline shift, herniation or hydrocephalus. MRI unremarkable. -spoke to teleneurologist Dr. Nelson with recommendation for loading dose Keppra followed by increased dose at 1000mg bid. -10/17 the patient is remains confused and has had two unremarkable MRIs of the head possibly withdrawing from [place] -10/18 patient is oriented to self and place today significantly improved -10/19 remains confused -10/20 stable -10/21 serum ammonia level is ordered -10/22 spoke to the patient's who informs me that the patient gets confused when she is hospitalized and this is not concerning to the has been # Prerenal BROOKS 2/2 sepsis/possibly secondary to vasomotor nephropathy- POA -US abdomen shows no hydronephrosis, renal function improving on IVF 10/18 resolved # Transaminitis # Cholestasis likely 2/2 acute CHF- POA # Acute decompensated HFrEF- POA # Hx Chronic alcoholism, quit 5 months ago -transaminitis and elevated t.bili; INR 1.1, normal lipase -pt has been consuming a herbal drink with Kava Kava which is hepatotoxic. -US abdomen shows hepatomegaly and hepatic steatosis without CBD dilation; follow portal vein US; hold CT given BROOKS and decreased GFR -10/14: CT abdomen/pelvis reveals severe hepatomegaly with fatty infiltration of liver, s/p cholecystectomy, no hydronephrosis. Portal vein US negative. IVF discontinued. -hepatitis panel pending, follow TTE, pBNP [id number], start Lasix -10/15: transaminitis with elevated indirect/direct t.bili uptrending, pBNP >30,000, serum sodium slightly uptrending. Lasix dose adjusted; NGT contraindicated due to Melida-en-Y; spironolactone, HCTZ, Entresto, metoprolol tart oral on hold until ST ev. -10/17 the patient's serum sodium continues to up trend decrease IV Lasix to daily dosing -10/18 serum sodium improved to 148 today and transaminitis is improving as well -10/19 liver function slightly improving and sodium has normalized -10/20 continues to improve -10/21 almost normalized # Hypertension -prn hydralazine # AFib RVR Remains on a Cardizem drip Likely DC diltiazem drip in the morning and start p.o. diltiazem # Hx Melida-en-Y # abdominal pain- Resolved no need for a CTA # nutrition Start PPN The patient may require feeding tube however she has has a gastric bypass/Melida-en-Y surgery the J-tube is a possible feeding tube option for the patient Code Status: Full code DVT prophylaxis: SCDs Date of Service: Oct 22, 2024 Billing Provider: JAY HARDWICK DO Common Visit Codes: [id number] INP/OBS CARE(HIGH) JAY HARDWICK DO Oct 22, 2024 17:29
[2024-10-23] VITALS (7 sets, daily range): BP systolic 110–140; BP diastolic 68–89; PULSE 60–76; RESP 11–59; TEMP 97.2–98.6; O2SAT 94–100
[2024-10-23] MEDS: HYDROcodone/acetaminophen 5mg/325mg tablet PO ONE ×3 (01:44→17:34)
[2024-10-23 06:34] LABS: LYMPHOCYTES # (AUTO) 1.7 X10'3 (1.1-4.8); WHITE BLOOD COUNT 8.6 X10'3 (4.5-11.0)
[2024-10-23 06:35] LABS: BASOPHILS # (AUTO) 0.1 X10'3 (0-0.2); BASOPHILS % (AUTO) 1.2 % (0-1); EOSINOPHILS % (AUTO) 0.2 % (0-6); HEMATOCRIT 39.2 % (35.0-45.0); HEMOGLOBIN 13.2 g/dl (12.0-16.0); LYMPHOCYTES % (AUTO) 19.6 % (21-51); MEAN CORPUSCULAR HEMOGLOBIN 37.7 PG (27.0-31.0); MEAN CORPUSCULAR HGB CONC 33.8 g/dL (33.0-36.5); MEAN CORPUSCULAR VOLUME 111.5 FL (78-98); MONOCYTES % (AUTO) 11.8 % (2-12); NEUTROPHILS # (AUTO) 5.8 X10'3 (1.8-7.7); NEUTROPHILS % (AUTO) 67.2 % (42-75); PLATELET COUNT 238 X10'3 (140-440); RED BLOOD COUNT 3.51 X10'6 (4.20-5.60); RED CELL DISTRIBUTION WIDTH 15.1 % (11.5-14.5)
[2024-10-23 06:55] LABS: ALANINE AMINOTRANSFERASE 45 U/L (12-78); ALBUMIN/GLOBULIN RATIO 0.5 (1.1-1.5); ALKALINE PHOSPHATASE 114 IU/L (46-116); ANION GAP 12 (8-16); ASPARTATE AMINO TRANSFERASE 44 U/L (10-37); BILIRUBIN,TOTAL 0.7 MG/DL (0.1-1.0); BLOOD UREA NITROGEN 37 MG/DL (7-18); BUN/CREATININE RATIO 40.2 (10.0-20.0); CALCIUM 8.4 MG/DL (8.5-10.1); CHLORIDE 100 MMOL/L (99-107); CREATININE 0.92 MG/DL (0.40-0.90); GLUCOSE 127 MG/DL (70-104); MAGNESIUM 1.6 MG/DL (1.5-2.4); PHOSPHORUS 4.9 MG/DL (2.3-4.5); POTASSIUM 4.1 MMOL/L (3.5-5.1); PREALBUMIN 17.4 MG/DL (19-36); SODIUM 135 MMOL/L (135-145); TOTAL CARBON DIOXIDE 23.1 MMOL/L (24-32); TOTAL PROTEIN 5.7 G/DL (6.4-8.2); TRIGLYCERIDES 140 MG/DL (20-135); eCRCL 61 ML/MIN; eGFR 62 ML/MIN
[2024-10-23 07:20] LABS: GIANT PLATELET FEW; LARGE PLATELETS FEW; PLATELET ESTIMATE NORMAL
--- NOTE | 2024-10-23 19:53 | PROGRESS NOTE ---
Daily Progress Note Providers to CC ~ Antibiotic Timeout Antibiotic Ordered?: No Subjective The patient did better with speech therapy today and her diets advanced to a mechanical soft chopped meat normal liquid diet. Substance use navigator Charlene Velasquez consulted on the patient and spoke to Dr. Alcala who recommended Suboxone for [place] withdrawal Objective Vital Signs Date Time Temp Pulse Resp B/P (MAP) Pulse Ox O2 Delivery O2 Flow Rate FiO2 10/23/24 18:34 16 10/23/24 16:12 97.2 66 125/73 (90) 100 Room Air 10/23/24 08:00 0.0 Result Diagram: 10/23/2462010/23/24620 Gen. No acute distress alert, to person HEENT pupils no longer dilated Lungs clear to ascultation bilaterally, no wheezes rales or rhonchi appreciated Heart normal sinus rhythm no murmurs rubs or clicks noted Abdomen soft nontender bowel sounds are normoactive Lower extremities no clubbing cyanosis, nor edema appreciated bilaterally Coagulation Studies Laboratory Tests Test 10/13/24 02:33 10/15/24 07:56 Activated Partial Thromboplast Time 25 SECONDS (22-32) Prothrombin Time 11.9 SECONDS (9.0-12.0) INR International Normalized Ratio 1.2 INR Coagulation Comments Problem\Assessment\Plan This is the patient that was admitted with encephalopathy and had 2-MRIs of the head has a seizure in his on Keppra without any further seizure activity- for transient time had dilated pupils which has resolved and it was discovered that the patient was drinking 10 herbal drinks a day of Kava with [place] (which has a Affinity to the opiate receptor). Dr. Alcala via Substance use navigator Charlene Velasquez consult recommended Suboxone for [place] withdrawal. The patient did better with speech therapy today in her diet is advanced to mechanical soft chopped with regular liquids. The patient remains weak and requires rehab placement. The patient intermittently is confused and acts like this when she is tired as per the patient's # Sepsis 2/2 UTI- POA # UTI- POA # Electrolyte imbalances # Dehydration # Seizures 2/2 above # Postictal encephalopathy # Metabolic encephalopathy 2/2 above- POA # Hyperglycemia 2/2 seizures -received IV diazepam 5 mg once in the ED for active seizures, started on IV Keppra, prn Ativan for seizures, on seizure precaution, K/Mg replacement protocol, Erwin, hyper/hypoglycemic protocol -febrile, septic, dehydrated- likely cause of seizure -follow lactic acid, procal, blood cx -10/14: Urine culture resulted for gram positive cocci, continued on vanco -10/15: Urine culture resulted for Strep agalactiae, abx regimen changed to ampicillin per sensitivity -10/16: Dilated and fixed pupils of OU, repeat CT head negative for intracranial hemorrhage, extra-axial collection, mass effect, midline shift, herniation or hydrocephalus. MRI unremarkable. -spoke to teleneurologist Dr. Nelson with recommendation for loading dose Keppra followed by increased dose at 1000mg bid. -10/17 the patient is remains confused and has had two unremarkable MRIs of the head possibly withdrawing from [place] -10/18 patient is oriented to self and place today significantly improved -10/19 remains confused -10/20 stable -10/21 serum ammonia level is ordered -10/22 spoke to the patient's who informs me that the patient gets confused when she is hospitalized and this is not concerning to the has been #[place] withdrawal Dr. Alcala via Substance use navigator Charlene Velasquez consult recommended b.i.d. Suboxone # Prerenal BROOKS 2/2 sepsis/possibly secondary to vasomotor nephropathy- POA -US abdomen shows no hydronephrosis, renal function improving on IVF 10/18 resolved # Transaminitis # Cholestasis likely 2/2 acute CHF- POA # Acute decompensated HFrEF- POA # Hx Chronic alcoholism, quit 5 months ago -transaminitis and elevated t.bili; INR 1.1, normal lipase -pt has been consuming a herbal drink with Kava Kava which is hepatotoxic. -US abdomen shows hepatomegaly and hepatic steatosis without CBD dilation; follow portal vein US; hold CT given BROOKS and decreased GFR -10/14: CT abdomen/pelvis reveals severe hepatomegaly with fatty infiltration of liver, s/p cholecystectomy, no hydronephrosis. Portal vein US negative. IVF discontinued. -hepatitis panel pending, follow TTE, pBNP [id number], start Lasix -10/15: transaminitis with elevated indirect/direct t.bili uptrending, pBNP >30,000, serum sodium slightly uptrending. Lasix dose adjusted; NGT contraindicated due to Melida-en-Y; spironolactone, HCTZ, Entresto, metoprolol tart oral on hold until ST eval. -10/17 the patient's serum sodium continues to up trend decrease IV Lasix to daily dosing -10/18 serum sodium improved to 148 today and transaminitis is improving as well -10/19 liver function slightly improving and sodium has normalized -10/20 continues to improve -10/21 almost normalized # Hypertension -prn hydralazine # AFib RVR On p.o. diltiazem # Hx Melida-en-Y # abdominal pain- Resolved no need for a CTA # nutrition Start PPN 10/23 - PPN was discontinued since diet is advanced to mechanical soft chopped with regular liquids Code Status: Full code DVT prophylaxis: SCDs Disposition: Patient remains significantly weak and is requiring significant assitance with ambulation. Case management is working on rehab placement Date of Service: Oct 23, 2024 Billing Provider: JAY HARDWICK DO Common Visit Codes: [id number] INP/OBS CARE(HIGH) JAY HARDWICK DO Oct 23, 2024 19:53
[2024-10-23] MEDS: diphenhydrAMINE 25mg capsule PO ONE (21:45)
[2024-10-24] VITALS (7 sets, daily range): BP systolic 89–117; BP diastolic 59–75; PULSE 71–102; RESP 12–23; TEMP 97–97.9; O2SAT 94–100
[2024-10-24] MEDS: HYDROcodone/acetaminophen 5mg/325mg tablet PO PRN (02:49)
[2024-10-24 07:40] LABS: PHOSPHORUS 3.9 MG/DL (2.3-4.5)
[2024-10-24 09:15] LABS: BASOPHILS # (AUTO) 0.1 X10'3 (0-0.2); BASOPHILS % (AUTO) 0.8 % (0-1); EOSINOPHILS % (AUTO) 0 % (0-6); HEMATOCRIT 38.1 % (35.0-45.0); HEMOGLOBIN 12.4 g/dl (12.0-16.0); LYMPHOCYTES # (AUTO) 1.7 X10'3 (1.1-4.8); LYMPHOCYTES % (AUTO) 21.3 % (21-51); MEAN CORPUSCULAR HEMOGLOBIN 36.6 PG (27.0-31.0); MEAN CORPUSCULAR HGB CONC 32.6 g/dL (33.0-36.5); MEAN CORPUSCULAR VOLUME 112.6 FL (78-98); MEAN PLATELET VOLUME 12.8 FL (7.4-10.4); MONOCYTES # (AUTO) 1.1 X10'3 (0-0.9); MONOCYTES % (AUTO) 13.5 % (2-12); NEUTROPHILS % (AUTO) 64.4 % (42-75); PLATELET COUNT 231 X10'3 (140-440); RED BLOOD COUNT 3.38 X10'6 (4.20-5.60); RED CELL DISTRIBUTION WIDTH 15.4 % (11.5-14.5); WHITE BLOOD COUNT 7.8 X10'3 (4.5-11.0)
[2024-10-24 09:26] LABS: ALANINE AMINOTRANSFERASE 41 U/L (12-78); ALBUMIN 2.1 G/DL (3.4-5.0); ALBUMIN/GLOBULIN RATIO 0.6 (1.1-1.5); ALKALINE PHOSPHATASE 108 IU/L (46-116); ANION GAP 13 (8-16); ASPARTATE AMINO TRANSFERASE 46 U/L (10-37); BILIRUBIN,TOTAL 0.7 MG/DL (0.1-1.0); BLOOD UREA NITROGEN 30 MG/DL (7-18); BUN/CREATININE RATIO 30.9 (10.0-20.0); CALCIUM 8.7 MG/DL (8.5-10.1); CHLORIDE 104 MMOL/L (99-107); CREATININE 0.97 MG/DL (0.40-0.90); GLUCOSE 93 MG/DL (70-104); POTASSIUM 4.3 MMOL/L (3.5-5.1); SODIUM 137 MMOL/L (135-145); TOTAL CARBON DIOXIDE 20.3 MMOL/L (24-32); TOTAL PROTEIN 5.8 G/DL (6.4-8.2); eCRCL 58 ML/MIN; eGFR 59 ML/MIN
--- NOTE | 2024-10-24 12:59 | PROGRESS NOTE ---
Daily Progress Note Providers to CC ~ Antibiotic Timeout Antibiotic Ordered?: Yes If Yes, Indications: UTI Subjective No acute events overnight. Patient examined at bedside. No new complaints. Patient denies chest pain, sob, palpitations, abdominal pain, n/v/d. Vss, labs unremarkable. Patient is awake, alert, and oriented. PPN discontinued yesterday, tolerating full liquid diet well. Pending rehab. 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 Musculoskeletal: No paraspinal muscle tenderness, no muscle spasm Skin: Warm and intact Coagulation Studies Laboratory Tests Test 10/13/24 02:33 10/15/24 07:56 Activated Partial Thromboplast Time 25 SECONDS (22-32) Prothrombin Time 11.9 SECONDS (9.0-12.0) INR International Normalized Ratio 1.2 INR Coagulation Comments Problem\Assessment\Plan This is the patient that was admitted with encephalopathy and had 2-MRIs of the head has a seizure in his on Keppra without any further seizure activity- for transient time had dilated pupils which has resolved and it was discovered that the patient was drinking 10 herbal drinks a day of Kava with [place] (which has a Affinity to the opiate receptor). Dr. Alcala via Substance use navigator Charlene Velasquez consult recommended Suboxone for [place] withdrawal. The patient did better with speech therapy today in her diet is advanced to mechanical soft chopped with regular liquids. The patient remains weak and requires rehab placement. The patient intermittently is confused and acts like this when she is tired as per the patient's # Sepsis 2/2 UTI- POA # UTI- POA # Electrolyte imbalances # Dehydration # Seizures 2/2 above # Postictal encephalopathy # Metabolic encephalopathy 2/2 above- POA # Hyperglycemia 2/2 seizures -received IV diazepam 5 mg once in the ED for active seizures, started on IV Keppra, prn Ativan for seizures, on seizure precaution, K/Mg replacement protocol, Erwin, hyper/hypoglycemic protocol -febrile, septic, dehydrated- likely cause of seizure -follow lactic acid, procal, blood cx -10/14: Urine culture resulted for gram positive cocci, continued on vanco -10/15: Urine culture resulted for Strep agalactiae, abx regimen changed to ampicillin per sensitivity -10/16: Dilated and fixed pupils of OU, repeat CT head negative for intracranial hemorrhage, extra-axial collection, mass effect, midline shift, herniation or hydrocephalus. MRI unremarkable. -spoke to teleneurologist Dr. Nelson with recommendation for loading dose Keppra followed by increased dose at 1000mg bid. -10/17 the patient is remains confused and has had two unremarkable MRIs of the head possibly withdrawing from [facility] -10/18 patient is oriented to self and place today significantly improved -10/19 remains confused -10/20 stable -10/21 serum ammonia level is ordered -10/22 spoke to the patient's who informs me that the patient gets confused when she is hospitalized and this is not concerning to the has been -10/24: pending rehab #[place] withdrawal -Dr. Alcala via Substance use navigator Charlene Velasquez consult recommended b.i.d. Suboxone # Prerenal BROOKS 2/2 sepsis/possibly secondary to vasomotor nephropathy- POA -US abdomen shows no hydronephrosis, renal function improving on IVF 10/18 resolved # Transaminitis # Cholestasis likely 2/2 acute CHF- POA # Acute decompensated HFrEF- POA # Hx Chronic alcoholism, quit 5 months ago -transaminitis and elevated t.bili; INR 1.1, normal lipase -pt has been consuming a herbal drink with Kava Kava which is hepatotoxic. -US abdomen shows hepatomegaly and hepatic steatosis without CBD dilation; follow portal vein US; hold CT given BROOKS and decreased GFR -10/14: CT abdomen/pelvis reveals severe hepatomegaly with fatty infiltration of liver, s/p cholecystectomy, no hydronephrosis. Portal vein US negative. IVF discontinued. -hepatitis panel pending, follow TTE, pBNP [id number], start Lasix -10/15: transaminitis with elevated indirect/direct t.bili uptrending, pBNP >30,000, serum sodium slightly uptrending. Lasix dose adjusted; NGT contraindicated due to Melida-en-Y; spironolactone, HCTZ, Entresto, metoprolol tart oral on hold until ST eval. -10/17 the patient's serum sodium continues to up trend decrease IV Lasix to daily dosing -10/18 serum sodium improved to 148 today and transaminitis is improving as well -10/19 liver function slightly improving and sodium has normalized -10/20 continues to improve -10/21 almost normalized # Hypertension -prn hydralazine # AFib RVR On p.o. diltiazem # Hx Melida-en-Y # abdominal pain- Resolved no need for a CTA # nutrition Start PPN 10/23 -PPN discontinued since diet is advanced to mechanical soft chopped with regular liquids 11/02: tolerating full liquid diet well Code Status: Full code DVT prophylaxis: SCDs Disposition: Patient remains significantly weak and is requiring significant assitance with ambulation. Case management is working on rehab placement Date of Service: Oct 24, 2024 Billing Provider: MARCO A BLANTON Common Visit Codes: [id number] INP/OBS CARE(MOD) MARCO A BLANTON Oct 24, 2024 12:58
[2024-10-24] MEDS: diphenhydrAMINE 25mg capsule PO ONE (20:37)
[2024-10-24] MEDS: buprenorphine/naloxone 8MG-2MG SUBlingual film SL SCH (20:51)
[2024-10-25] VITALS (9 sets, daily range): BP systolic 76–117; BP diastolic 45–73; PULSE 82–104; RESP 11–24; TEMP 97.5–98.2; O2SAT 92–100
--- NOTE | 2024-10-25 11:49 | PROGRESS NOTE ---
Daily Progress Note Providers to CC ~ Antibiotic Timeout Antibiotic Ordered?: Yes Subjective No acute events overnight. Patient examined at bedside. No new complaints. Patient denies chest pain, sob, palpitations, abdominal pain, n/v/d. Patient is awake, alert, and oriented. Tele sinus tachy in 100s. Patient refused lab draw. Pending rehab. 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 Musculoskeletal: No paraspinal muscle tenderness, no muscle spasm Skin: Warm and intact Coagulation Studies Laboratory Tests Test 10/13/24 02:33 10/15/24 07:56 Activated Partial Thromboplast Time 25 SECONDS (22-32) Prothrombin Time 11.9 SECONDS (9.0-12.0) INR International Normalized Ratio 1.2 INR Coagulation Comments Problem\Assessment\Plan This is the patient that was admitted with encephalopathy and had 2-MRIs of the head has a seizure in his on Keppra without any further seizure activity- for transient time had dilated pupils which has resolved and it was discovered that the patient was drinking 10 herbal drinks a day of Kava with Kraton (which has a Affinity to the opiate receptor). Dr. Alcala via Substance use navigator Charlene Velasquez consult recommended Suboxone for Kraton withdrawal. The patient did better with speech therapy today in her diet is advanced to mechanical soft chopped with regular liquids. The patient remains weak and requires rehab placement. The patient intermittently is confused and acts like this when she is tired as per the patient's # Sepsis 2/2 UTI- POA # UTI- POA # Electrolyte imbalances # Dehydration # Seizures 2/2 above # Postictal encephalopathy # Metabolic encephalopathy 2/2 above- POA # Hyperglycemia 2/2 seizures -received IV diazepam 5 mg once in the ED for active seizures, started on IV Keppra, prn Ativan for seizures, on seizure precaution, K/Mg replacement protocol, Erwin, hyper/hypoglycemic protocol -febrile, septic, dehydrated- likely cause of seizure -follow lactic acid, procal, blood cx -10/14: Urine culture resulted for gram positive cocci, continued on vanco -10/15: Urine culture resulted for Strep agalactiae, abx regimen changed to ampicillin per sensitivity -10/16: Dilated and fixed pupils of OU, repeat CT head negative for intracranial hemorrhage, extra-axial collection, mass effect, midline shift, herniation or hydrocephalus. MRI unremarkable. -spoke to teleneurologist Dr. Nelson with recommendation for loading dose Keppra followed by increased dose at 1000mg bid. -10/17 the patient is remains confused and has had two unremarkable MRIs of the head possibly withdrawing from [facility] -10/18 patient is oriented to self and place today significantly improved -10/19 remains confused -10/20 stable -10/21 serum ammonia level is ordered -10/22 spoke to the patient's who informs me that the patient gets confused when she is hospitalized and this is not concerning to the has been -10/24: pending rehab #[place] withdrawal -Dr. Alcala via Substance use navigator Charlene Velasquez consult recommended b.i.d. Suboxone # Prerenal BROOKS 2/2 sepsis/possibly secondary to vasomotor nephropathy- POA -US abdomen shows no hydronephrosis, renal function improving on IVF 10/18 resolved # Transaminitis # Cholestasis likely 2/2 acute CHF- POA # Acute decompensated HFrEF- POA # Hx Chronic alcoholism, quit 5 months ago -transaminitis and elevated t.bili; INR 1.1, normal lipase -pt has been consuming a herbal drink with Kava Kava which is hepatotoxic. -US abdomen shows hepatomegaly and hepatic steatosis without CBD dilation; follow portal vein US; hold CT given BROOKS and decreased GFR -10/14: CT abdomen/pelvis reveals severe hepatomegaly with fatty infiltration of liver, s/p cholecystectomy, no hydronephrosis. Portal vein US negative. IVF discontinued. -hepatitis panel pending, follow TTE, pBNP [id number], start Lasix -10/15: transaminitis with elevated indirect/direct t.bili uptrending, pBNP >30,000, serum sodium slightly uptrending. Lasix dose adjusted; NGT contraindicated due to Melida-en-Y; spironolactone, HCTZ, Entresto, metoprolol tart oral on hold until ST eval. -10/17 the patient's serum sodium continues to up trend decrease IV Lasix to daily dosing -10/18 serum sodium improved to 148 today and transaminitis is improving as well -10/19 liver function slightly improving and sodium has normalized -10/20 continues to improve -10/21 almost normalized # Hypertension -prn hydralazine # AFib RVR On p.o. diltiazem # Hx Melida-en-Y # abdominal pain- Resolved no need for a CTA # nutrition Start PPN 10/23 -PPN discontinued since diet is advanced to mechanical soft chopped with regular liquids 11/02: tolerating full liquid diet well Code Status: Full code DVT prophylaxis: SCDs Disposition: Patient remains significantly weak and is requiring significant assitance with ambulation. Case management is working on rehab placement Date of Service: Oct 25, 2024 Billing Provider: MARCO A BLANTON Common Visit Codes: [id number] INP/OBS CARE(MOD) MARCO A BLANTON Oct 25, 2024 11:49
[2024-10-25] MEDS: ringers solution, lacted 1,000 ML IV SCH (21:28)
[2024-10-26] MEDS: Melatonin 3mg tablet PO ONE (00:31)
[2024-10-26] MEDS: diphenhydrAMINE 50 mg/ml inj IV ONE (00:32)
[2024-10-26] MEDS: LORazepam 2 mg/ml vial IV ONE (00:36)
[2024-10-26 06:00] VITALS: BP 107/62; PULSE 83; RESP 13; TEMP 97.4; O2SAT 98
[2024-10-26 06:07] LABS: BASOPHILS # (AUTO) 0.1 X10'3 (0-0.2); BASOPHILS % (AUTO) 1.3 % (0-1); EOSINOPHILS % (AUTO) 0 % (0-6); HEMATOCRIT 37.2 % (35.0-45.0); HEMOGLOBIN 12.2 g/dl (12.0-16.0); LYMPHOCYTES # (AUTO) 2.1 X10'3 (1.1-4.8); LYMPHOCYTES % (AUTO) 36.6 % (21-51); MEAN CORPUSCULAR HEMOGLOBIN 36.7 PG (27.0-31.0); MEAN CORPUSCULAR HGB CONC 32.8 g/dL (33.0-36.5); MEAN PLATELET VOLUME 11.6 FL (7.4-10.4); MONOCYTES # (AUTO) 0.5 X10'3 (0-0.9); MONOCYTES % (AUTO) 9.2 % (2-12); NEUTROPHILS # (AUTO) 3.1 X10'3 (1.8-7.7); NEUTROPHILS % (AUTO) 52.9 % (42-75); PLATELET COUNT 274 X10'3 (140-440); RED BLOOD COUNT 3.32 X10'6 (4.20-5.60); RED CELL DISTRIBUTION WIDTH 15.5 % (11.5-14.5); WHITE BLOOD COUNT 5.9 X10'3 (4.5-11.0)
[2024-10-26 06:22] LABS: ALANINE AMINOTRANSFERASE 72 U/L (12-78); ALBUMIN 2.4 G/DL (3.4-5.0); ALBUMIN/GLOBULIN RATIO 0.7 (1.1-1.5); ALKALINE PHOSPHATASE 131 IU/L (46-116); ANION GAP 11 (8-16); ASPARTATE AMINO TRANSFERASE 71 U/L (10-37); BILIRUBIN,TOTAL 0.6 MG/DL (0.1-1.0); BLOOD UREA NITROGEN 33 MG/DL (7-18); BUN/CREATININE RATIO 22.8 (10.0-20.0); CALCIUM 8.6 MG/DL (8.5-10.1); CHLORIDE 105 MMOL/L (99-107); CREATININE 1.45 MG/DL (0.40-0.90); GLUCOSE 105 MG/DL (70-104); MAGNESIUM 1.7 MG/DL (1.5-2.4); PHOSPHORUS 4.7 MG/DL (2.3-4.5); POTASSIUM 4.3 MMOL/L (3.5-5.1); PREALBUMIN 23.6 MG/DL (19-36); PRO BRAIN NATRIURETIC PEPTIDE 8769 PG/ML (0-125); SODIUM 140 MMOL/L (135-145); TOTAL CARBON DIOXIDE 23.7 MMOL/L (24-32); TOTAL PROTEIN 5.8 G/DL (6.4-8.2); TRIGLYCERIDES 130 MG/DL (20-135); eCRCL 39 ML/MIN; eGFR 37 ML/MIN
[2024-10-26 06:42] LABS: PLATELET ESTIMATE NORMAL
[2024-10-26 06:43] LABS: LARGE PLATELETS FEW
[2024-10-26 08:00] VITALS: RESP 13; O2SAT 98
[2024-10-26] MEDS: thiamine 100mg tablet PO SCH (09:15)
[2024-10-26] MEDS: levetiracetam 250mg tablet PO SCH (09:15)
[2024-10-26] MEDS: ringers solution, lacted 1,000 ML IV SCH (09:57)
[2024-10-26 11:00] VITALS: BP 85/52; PULSE 54; RESP 17; TEMP 97.3; O2SAT 99
--- NOTE | 2024-10-26 13:46 | PROGRESS NOTE ---
Daily Progress Note Providers to CC ~ Antibiotic Timeout Antibiotic Ordered?: No Subjective No acute events overnight. Patient examined at bedside. Patient denies chest pain, sob, palpitations, abdominal pain, n/v/d. Patient is awake, alert, and oriented. Vss, labs notable for uptrended creatinine. Diuretics discontinued, IVF started. Patient had issues with nursing, refusing medications, tele, and lab draw yesterday. Objective Vital Signs Date Time Temp Pulse Resp B/P (MAP) Pulse Ox O2 Delivery O2 Flow Rate FiO2 10/26/24 08:37 83 10/26/24 08:00 13 98 Room Air 10/25/24 22:00 97.7 90/45 (60) 10/24/24 08:00 0.0 Result Diagram: 10/26/2451910/26/24519 Physical Exam General: Generalized weakness, A&Ox3 HEENT: Normocephalic, PERRLA Neck: Supple, trachea midline, no JVD Chest: Clear to auscultation bilaterally Cardiovascular: RRR, S1&S2 GI: Soft and nontender Extremities: No cyanosis/clubbing/or edema GLASS ROBOT OPERATOR: No focal deficits Musculoskeletal: No paraspinal muscle tenderness, no muscle spasm Skin: Warm and intact Coagulation Studies Laboratory Tests Test 10/13/24 02:33 10/15/24 07:56 Activated Partial Thromboplast Time 25 SECONDS (22-32) Prothrombin Time 11.9 SECONDS (9.0-12.0) INR International Normalized Ratio 1.2 INR Coagulation Comments Problem\Assessment\Plan This is the patient that was admitted with encephalopathy and had 2-MRIs of the head has a seizure in his on Keppra without any further seizure activity- for transient time had dilated pupils which has resolved and it was discovered that the patient was drinking 10 herbal drinks a day of Kava with Kraton (which has a Affinity to the opiate receptor). Dr. Alcala via Substance use navigator Charlene Velasquez consult recommended Suboxone for Kraton withdrawal. The patient did better with speech therapy today in her diet is advanced to mechanical soft chopped with regular liquids. The patient remains weak and requires rehab placement. The patient intermittently is confused and acts like this when she is tired as per the patient's # Sepsis 2/2 UTI- POA # UTI- POA # Electrolyte imbalances # Dehydration # Seizures 2/2 above # Postictal encephalopathy # Metabolic encephalopathy 2/2 above- POA # Hyperglycemia 2/2 seizures -received IV diazepam 5 mg once in the ED for active seizures, started on IV Keppra, prn Ativan for seizures, on seizure precaution, K/Mg replacement protocol, Erwin, hyper/hypoglycemic protocol -febrile, septic, dehydrated- likely cause of seizure -follow lactic acid, procal, blood cx -10/14: Urine culture resulted for gram positive cocci, continued on vanco -10/15: Urine culture resulted for Strep agalactiae, abx regimen changed to ampicillin per sensitivity -10/16: Dilated and fixed pupils of OU, repeat CT head negative for intracranial hemorrhage, extra-axial collection, mass effect, midline shift, herniation or hydrocephalus. MRI unremarkable. -spoke to teleneurologist Dr. Nelson with recommendation for loading dose Keppra followed by increased dose at 1000mg bid. -10/17 the patient is remains confused and has had two unremarkable MRIs of the head possibly withdrawing from [facility] -10/18 patient is oriented to self and place today significantly improved -10/19 remains confused -10/20 stable -10/21 serum ammonia level is ordered -10/22 spoke to the patient's who informs me that the patient gets confused when she is hospitalized and this is not concerning to the has been -10/24: pending rehab # [place] withdrawal -Dr. Alcala via Substance use navigator Charlene Velasquez consult recommended b.i.d. Suboxone # Prerenal BROOKS 2/2 sepsis/possibly secondary to vasomotor nephropathy- POA -US abdomen shows no hydronephrosis, renal function improving on IVF 10/18 resolved 10/26 uptrended creatinine. Diuretics discontinued, IVF started # Transaminitis # Cholestasis likely 2/2 acute CHF- POA # Acute decompensated HFrEF- POA # Hx Chronic alcoholism, quit 5 months ago -transaminitis and elevated t.bili; INR 1.1, normal lipase -pt has been consuming a herbal drink with Kava Kava which is hepatotoxic. -US abdomen shows hepatomegaly and hepatic steatosis without CBD dilation; follow portal vein US; hold CT given BROOKS and decreased GFR -10/14: CT abdomen/pelvis reveals severe hepatomegaly with fatty infiltration of liver, s/p cholecystectomy, no hydronephrosis. Portal vein US negative. IVF discontinued. -hepatitis panel pending, follow TTE, pBNP [id number], start Lasix -10/15: transaminitis with elevated indirect/direct t.bili uptrending, pBNP >30,000, serum sodium slightly uptrending. Lasix dose adjusted; NGT contraindicated due to Melida-en-Y; spironolactone, HCTZ, Entresto, metoprolol tart oral on hold until . -10/17 the patient's serum sodium continues to up trend decrease IV Lasix to daily dosing -10/18 serum sodium improved to 148 today and transaminitis is improving as well -10/19 liver function slightly improving and sodium has normalized -10/20 continues to improve -10/21 almost normalized # Hypertension -prn hydralazine # AFib RVR On p.o. diltiazem # Hx Melida-en-Y # abdominal pain- Resolved no need for a CTA # nutrition Start PPN 10/23 -PPN discontinued since diet is advanced to mechanical soft chopped with regular liquids 11/02: tolerating full liquid diet well Code Status: Full code DVT prophylaxis: SCDs Disposition: Patient remains significantly weak and is requiring significant assitance with ambulation. Case management is working on rehab placement Date of Service: Oct 26, 2024 Billing Provider: MARCO A BLANTON Common Visit Codes: [id number] INP/OBS CARE(HIGH) MARCO A BLANTON Oct 26, 2024 13:46
[2024-10-26 15:00] VITALS: BP 83/52; PULSE 83; RESP 23; TEMP 97.4; O2SAT 100
[2024-10-26] MEDS: diphenhydrAMINE 25mg capsule PO PRN (16:35)
[2024-10-26 18:00] VITALS: BP 84/48; PULSE 76; RESP 16; TEMP 97.5; O2SAT 95
[2024-10-26 22:00] VITALS: BP 83/49; PULSE 78; RESP 18; TEMP 97.6; O2SAT 100
[2024-10-27] MEDS: Melatonin 3mg tablet PO ONE (00:20)
[2024-10-27] MEDS: LORazepam 1 MG tablet PO ONE (00:21)
[2024-10-27] MEDS: diphenhydrAMINE 25mg capsule PO ONE (00:21)
[2024-10-27 02:00] VITALS: BP 79/46; PULSE 93; RESP 17; TEMP 97.7; O2SAT 98
[2024-10-27] MEDS: normal saline 500ml IV soln 500 ML IV ONE (02:58)
[2024-10-27 04:12] VITALS: BP 103/59
[2024-10-27 06:00] VITALS: BP 111/46; PULSE 80; RESP 15; TEMP 97.6; O2SAT 100
[2024-10-27 07:45] LABS: EOSINOPHILS % (AUTO) 0 % (0-6); HEMATOCRIT 30.3 % (35.0-45.0); HEMOGLOBIN 10.3 g/dl (12.0-16.0); LYMPHOCYTES # (AUTO) 1.8 X10'3 (1.1-4.8); LYMPHOCYTES % (AUTO) 36.4 % (21-51); MEAN CORPUSCULAR HEMOGLOBIN 37.2 PG (27.0-31.0); MEAN CORPUSCULAR VOLUME 109.7 FL (78-98); MEAN PLATELET VOLUME 10.4 FL (7.4-10.4); MONOCYTES # (AUTO) 0.6 X10'3 (0-0.9); MONOCYTES % (AUTO) 11.3 % (2-12); NEUTROPHILS # (AUTO) 2.6 X10'3 (1.8-7.7); NEUTROPHILS % (AUTO) 51.3 % (42-75); PLATELET COUNT 192 X10'3 (140-440); RED BLOOD COUNT 2.76 X10'6 (4.20-5.60); RED CELL DISTRIBUTION WIDTH 15.5 % (11.5-14.5); WHITE BLOOD COUNT 5.1 X10'3 (4.5-11.0)
[2024-10-27 07:58] LABS: ALANINE AMINOTRANSFERASE 60 U/L (12-78); ALBUMIN 1.9 G/DL (3.4-5.0); ALBUMIN/GLOBULIN RATIO 0.7 (1.1-1.5); ALKALINE PHOSPHATASE 103 IU/L (46-116); ANION GAP 9 (8-16); ASPARTATE AMINO TRANSFERASE 52 U/L (10-37); BILIRUBIN,TOTAL 0.5 MG/DL (0.1-1.0); BLOOD UREA NITROGEN 34 MG/DL (7-18); BUN/CREATININE RATIO 24.6 (10.0-20.0); CALCIUM 8.2 MG/DL (8.5-10.1); CHLORIDE 110 MMOL/L (99-107); CREATININE 1.38 MG/DL (0.40-0.90); GLUCOSE 84 MG/DL (70-104); POTASSIUM 4.3 MMOL/L (3.5-5.1); SODIUM 141 MMOL/L (135-145); TOTAL CARBON DIOXIDE 21.7 MMOL/L (24-32); TOTAL PROTEIN 4.7 G/DL (6.4-8.2); eCRCL 40 ML/MIN; eGFR 39 ML/MIN
[2024-10-27 08:00] VITALS: RESP 15; O2SAT 100
[2024-10-27 11:03] VITALS: BP 91/54; PULSE 100; RESP 19; O2SAT 99
--- NOTE | 2024-10-27 12:59 | DISCHARGE SUMMARY ---
Discharge Summary Providers to CC ~ Discharge Summary Admission Diagnosis: Seizures Hospital Course DATE OF ADMISSION: 10/12/24 DATE OF DISCHARGE: 10/27/24 Discharge Diagnosis\\Comment: Sepsis 2/2 UTI- POA UTI- POA Electrolyte imbalances Dehydration Seizures 2/2 above Postictal encephalopathy Metabolic encephalopathy 2/2 above- POA Hyperglycemia 2/2 seizures Kraton withdrawal Substance abuse Prerenal BROOKS 2/2 sepsis/possibly secondary to vasomotor nephropathy- POA Transaminitis # Cholestasis likely 2/2 acute CHF- POA Acute decompensated HFrEF- POA Hx Chronic alcoholism Hypertension AFib RVR Hx Melida-en-Y Moderate malnutrition- POA Generalized weakness Operations\\Procedures: EEG Consultants: Teleneurologist Dr. Celso Queen Teleneurologist Dr. Haider Downs Teleneurologist Dr. Jareth Myles Complications: None Condition on DC: Stable for transfer Discharge Summary: History of Present Illness From H&P: "In view of the altered level of consciousness of the patient in the history is derived from the patient's who is at the bedside. 59 years old female past medical history of hypertension, CHF was brought into the ER by the EMS with chief complaint of seizures that was witnessed by her today in the evening around 6:00 p.m.. The patient's reports that the patient was complaining of generalized weakness and chills throughout the day today. He reports that he was helping his from the bedroom to the serrano when all of a sudden she complained of her legs giving up and needing to be seated on a chair. As soon as the patient sat on the chair the patient has started seizing with the tunic seizures that lasted for around 5 minutes. It has been reported that the patient was altered and confused after the seizures for at least 45 minutes until the EMS arrived and the patient was brought into the hospital. He reports that this is the 1st time the patient has had seizures. He mentioned that the patient has been taking a drink from the gas station called "[employer]" for the past couple of months. He reports that he has been drinking almost 10 bottles of these drinks every day for the last couple of months. He states that she decided to quit these drinks cold turkey today in the morning and thinks all the symptoms started after the patient quit drinking this drink. While the patient was in the ER the patient had one more episode of seizures that was reported by the ER physician. He mentioned that the seizure did not last long and she was treated with the Valium IV. At the time of examination/interview with the patient is altered, somnolent and is answering questions very slowly. She is not oriented to time, place. She complains of dizziness and states that she feels like the room is spinning around her. She also complains of nausea." Hospital Course Case was consulted with teleneurologist Dr. Queen who suggested that presentation is likely provoked seizure from toxometabolic exposure from Kratom given history with recommendation to treat seizures with benzodiazepines. Patient was immediately treated with intravenous diazepam in the ED with intravenous Keppra. Other pertinent positive findings for signs of sepsis including fever, sinus tachycardia, and tachypnea, abnormal renal function, transaminitis and elevated t.bili, elevated pBNP, CT abdomen/pelvis revealing severe hepatomegaly with fatty infiltration, TTE revealing LVEF of 40-45%, RVSP of 43 mmHg without significant valvular heart disease. Pertinent negative findings were normal lactic acid, normal CK, normal ammonia level, negative head CT, negative head MRI, negative ultrasound for portal vein thrombosis. Patient was initially treated with empirical antibiotics and intravenous fluids given sepsis which was then changed to diuretics. Also, due to sinus tachycardia ranging in 130s, patient was treated with AV marisol linda. EEG came back unremarkable. With initiation of treatment, patient's acute kidney injury and transaminitis resolved. Dr. Alcala via Substance use navigator recommended suboxone. Patient's mentation improved gradually over the course of hospital stay. Patient did not experience further complications throughout the entire hospital stay. Patient was seen and examined on the day of discharge. On day of discharge, vss and labs notable for improving acute kidney injury and otherwise unremarkable. All labs, diagnostic workups, discharge plan discussed with patient in details during visit before discharge. All questions and concerns answered to the best of my professional knowledge. Patient is to be discharged to rehab for continued management and to follow-up with PCP and outpatient neurologist for continuous EEG. Physical Exam General: Generalized weakness, A&Ox3 HEENT: Normocephalic, PERRLA Neck: Supple, trachea midline, no JVD Chest: Clear to auscultation bilaterally Cardiovascular: RRR, S1&S2 GI: Soft and nontender Extremities: No cyanosis/clubbing/or edema AUTO BODY TECHNICIAN: No focal deficits Musculoskeletal: No paraspinal muscle tenderness, no muscle spasm Skin: Warm and intact *Problems/Diagnosis: (1) Seizure Status: Acute Total Time Spent on D/C: > 30 Minutes Date of Service: Oct 27, 2024 Billing Provider: MARCO A BLANTON Common Visit Codes: [id number] DISCH DAY >30min MARCO A BLANTON Oct 27, 2024 12:59
[2024-10-27] MEDS ORDERED: sacubitril/valsartan 24mg-26mg tablet PO SCH (20:00)
[2024-10-27] MEDS ORDERED: Melatonin 3mg tablet PO SCH (21:00)
== END 2024-10-27 15:26 | DRG 720 ==
LOC: ER 20:19 → ED HOLD 23:35 → UNDOADMIN 23:35 → ED HOLD 10-13 15:51 → PCU 3S 10-13 19:35
PROVIDERS: ADMIT Internal Medicine Sleep Medicine; ATTEND Nurse Practitioner Family
PROC: BW211ZZ Computerized Tomography (CT Scan) of Abdomen and Pelvis using Low Osmolar Contrast (ICD-10-PCS; principal; 2024-10-14)
PROC: 4A00X4Z Measurement of Central Nervous Electrical Activity, External Approach (ICD-10-PCS; 2024-10-16)
DX: A41.9 Sepsis, unspecified organism (principal); N17.0 Acute kidney failure with tubular necrosis; I50.23 Acute on chronic systolic (congestive) heart failure; K83.1 Obstruction of bile duct; E44.0 Moderate protein-calorie malnutrition; E83.42 Hypomagnesemia; I48.91 Unspecified atrial fibrillation; E86.0 Dehydration; K75.9 Inflammatory liver disease, unspecified; I11.0 Hypertensive heart disease with heart failure; R73.9 Hyperglycemia, unspecified; K76.0 Fatty (change of) liver, not elsewhere classified; N39.0 Urinary tract infection, site not specified; F13.10 Sedative, hypnotic or anxiolytic abuse, uncomplicated; R56.9 Unspecified convulsions; Z53.20 Procedure and treatment not carried out because of patient's decision for unspecified reasons; Z78.1 Physical restraint status; Z90.49 Acquired absence of other specified parts of digestive tract; Z98.84 Bariatric surgery status; Z79.899 Other long term (current) drug therapy; Z68.21 Body mass index [BMI] 21.0-21.9, adult
CPT/HCPCS: 36415; 70450; 70551; 70552; 71045; 74177; 76700; 80048; 80053; 80202; 80305; 80320; 81001; 82140; 82248; 82272; 82390; 82550; 82570; 82948; 83036; 83540; 83550; 83605; 83690; 83735; 83880; 84100; 84133; 84134; 84145; 84156; 84300; 84443; 84478; 84540; 85007; 85008; 85025; 85610; 85730; 86704; 86709; 86803; 87040; 87077; 87081; 87088; 87186; 87340; 87517; 87522; 92508; 92616; 93005; 93306; 93975; 95816; 96374; 96375; 97110; 97161; 97530; 99285; A4353; A5200; A6213; A6258; A6446; G0378; J0131; J0290; J0360; J1200; J1815; J1938; J1940; J1953; J2060; J2405; J2543; J3360; J3370; J3372; J3411; J3475; J3480; J3490; J7030; J7040; J7042; J7060; J7070; J7120; J7121; Q0163; Q9963; Q9967

== ENCOUNTER 2025-01-06 06:07 | Inpatient (IN) | payer MEDICAID ==
[2025-01-06] VITALS (7 sets, daily range): BP systolic 114–168; BP diastolic 68–84; PULSE 72–119; RESP 15–18; TEMP 97.9–98.5; O2SAT 96–100
[~2025-01-06] VITALS: Ht 167.6 cm; Wt 56.8 kg
[~2025-01-06 06:07] MED LIST changes: -NITR100C6 PO
--- NOTE | 2025-01-06 06:45 | Physician Documentation ---
History of Present Illness General Chief Complaint: Arm Pain Stated Complaint: ARM FRACTURE/FALL Time Seen by MD: 06:33 Primary Medical Doctor: KASIA History of Present Illness Initial Comments Patient is a 59-year-old female slipped and fell yesterday at 11:30 p.m. in the afternoon the patient is complaining of left elbow pain patient states she came down on her left elbow. The patient also states she struck the left side of her face. She denies any level OC. Patient denies any neck pain. Patient states her pain is 7/10 in the left arm she also noted some left hand swelling that has developed since yesterday. Patient states she has good sensation in her left hand and has any pain which with range of motion of the left arm. Medication Reconciliation Allergies: Coded Allergies: Heparin Analogues (Verified Allergy, Unknown, 10/12/24) prochlorperazine edisylate (Verified Allergy, Unknown, HALLUCINATIONS, 10/12/24) prochlorperazine maleate (Verified Allergy, Unknown, HALLUCINATIONS, 10/12/24) Scheduled Carvedilol (Carvedilol), 1 TAB PO DAILY, (Reported) Duloxetine HCl (Duloxetine HCl), 1 CAP PO DAILY, (Reported) Folic Acid* (Folic Acid*), 1 TAB PO DAILY Hydrochlorothiazide (Hydrochlorothiazide), 1 TAB PO DAILY, (Reported) Lisinopril (Lisinopril), 1 TAB PO DAILY, (Reported) Multivitamin (Multi Vitamin Daily), 1 TAB PO DAILY Nifedipine ER* (Nifedipine Er*), 1 TAB PO DAILY, (Reported) Quetiapine Fumarate (Quetiapine Fumarate), 1 TAB PO HS, (Reported) Quetiapine Fumarate (Seroquel), 50 MG PO HS, (Reported) Thiamine HCl (Vitamin B-1), 2 TAB PO DAILY Discontinued Medications Bupropion HCl (Bupropion Xl), 1 TAB PO DAILY, (Reported) Chlordiazepoxide HCl (Chlordiazepoxide HCl), 50 MG PO DAILY Discontinued Reason: wrong med Duloxetine HCl (Duloxetine HCl), 1 CAP PO DAILY, (Reported) Discontinued Reason: Other Past Medical History Past Medical History: Hypertension Review of Systems All Other Systems at this time: Reviewed and Negative Physical Exam Physical Exam Vital Signs: Temperature: 96.3, Source: Temporal, Heart Rate: 98, Respiratory Rate: 18, BP: 141/88, Pulse Oximetry: 100, Weight: 56.810 Oxygen Flow Rate: 0 Physical Exam VITALS: Reviewed and as above. GENERAL: Alert, no apparent distress. HEENT: Normocephalic, atraumatic, PERRL, EOMI, dry mucosa, no erythema RESPIRATORY: Lungs clear, normal breath sounds, no respiratory distress. CHEST: No accessory muscle use, no retractions CV: Regular rate, rhythm, no edema, no murmur, No: JVD GI: Soft, non-tender, bowels sounds present, no rebound, guarding, or rigidity BACK: No CVA tenderness, or swelling MUSCULOSKELETAL: Patient has tenderness and swelling of the left elbow she is neuro vascularly intact distally she has a good radial pulse and she is able to move her fingers and she has normal sensory function in the left hand. SKIN: Warm and dry, no rash NEURO: Oriented x4, No motor or sensory deficit PSYCH: Normal mood and affect, no agitation Progress Results/Orders Results/Orders Orders - OHLFS,BISMARK Chakraborty MD Stat Ekg (01/06/25 07:30) Chest,Single View (01/06/25 07:30) Saline Lock (01/06/25 ) Page Hospitalist (01/06/25 08:31) Fill Out Med Reconciliation (01/06/25 08:31) Completed Orders - OHLBISMARK PAK MD Oxycodone/Acetaminophen Tablet (Percocet (01/06/25 07:00) Ketorolac Trometh 15mg/Ml Vial (Toradol (01/06/25 07:00) Cbc/Diff (01/06/25 07:30) BMP (01/06/25 07:30) Stat Ekg (01/06/25 07:30) Pt Inr (01/06/25 07:30) Chest,Single View (01/06/25 07:30) Morphine 10mg/Ml Inj. (Morphine Inj.) (01/06/25 08:10) PBNP (01/06/25 07:55) Vital Signs 01/06/25 01/06/25 01/06/25 01/06/25 06:09 06:41 07:06 07:06 Temp 96.3 Pulse 98 Resp 18 16 16 16 B/P (MAP) 141/88 Pulse Ox 100 O2 Flow Rate 0 01/06/25 01/06/25 01/06/25 01/06/25 07:44 08:06 08:06 08:43 Pulse 72 Resp 16 16 16 16 B/P (MAP) 144/55 (84) Pulse Ox 98 O2 Flow Rate 0 Laboratory Tests Test 01/06/25 07:55 White Blood Count 7.8 Red Blood Count 3.66 L Hemoglobin 10.5 L Hematocrit 31.1 L Mean Corpuscular Volume 85.1 Mean Corpuscular Hemoglobin 28.6 Mean Corpuscular Hemoglobin Concent 33.6 Red Cell Distribution Width 18.9 H Platelet Count 348 Mean Platelet Volume 7.6 Neutrophils (%) (Auto) 85.8 H Lymphocytes (%) (Auto) 9.4 L Monocytes (%) (Auto) 4.6 Eosinophils (%) (Auto) 0 Basophils (%) (Auto) 0.2 Neutrophils # (Auto) 6.7 Lymphocytes # (Auto) 0.7 L Monocytes # (Auto) 0.4 Eosinophils # (Auto) 0.0 Basophils # (Auto) 0.0 CBC Comment Prothrombin Time 10.0 INR International Normalized Ratio 1.0 Coagulation Comments Sodium Level 131 L Potassium Level 3.7 Chloride Level 97 L Carbon Dioxide Level 20.3 L Anion Gap 14 Blood Urea Nitrogen 14 Creatinine 1.46 H Estimated GFR/1.73 m2 37 BUN/Creatinine Ratio 9.6 L Glucose Level 94 Calcium Level 8.3 L Pro-B-Type Natriuretic Peptide 366 H Albumin 3.6 Chemistry Comments EKG/XRAY/CT/US/VASC/MRI Chest X-Ray : Additional Comments Patient: ERNESTINA PIERRE Medical Record: [id number] [facility] : 1965, Age: 59 Sex: Female Location: ER Patient Status: REG ER Service Date/Time: 01/06/25729 Ordering Physician: BISMARK SCHAEFER MD Exam: CHEST,SINGLE VIEW CHEST RADIOGRAPH Indication: pre op, pain Technique: Single frontal view of the chest was obtained COMPARISON: DI CHEST,SINGLE VIEW on DOS: 10/12/24, DI CHEST,SINGLE VIEW on DOS: 06/10/23 FINDINGS: Lines and Tubes: None Lungs: Clear Pleura: No effusion. No pneumothorax. Cardiomediastinal contours: Unremarkable Bones: Unremarkable IMPRESSION: No acute disease. Electronically Signed by:LUI RIOS MD Date & Time: 01/06/25827 Dictated by: LUI RIOS MD Dictation date and time: 01/06/25827 Primary Care Provider: NO PRIMARY CARE PROVIDER cc: BISMARK SCHAEFER MD ~ Bone/Soft Tissue X-Ray (Ext.) : Additional Comment [address] [address] DIAGNOSTIC RADIOLOGY Patient: ERNESTINA PIERRE Medical Record: [id number] [facility] : 1965, Age: 59 Sex: Female Location: ER Patient Status: [facility] ER Service Date/Time: 01/06/25616 Ordering Physician: CINTHIA LAM MD Exam: FOREARM,INCL.ONE JOINT CLINICAL INDICATION: ARM PAIN TECHNIQUE: DI FOREARM,INCL.ONE JOINT Comparison: None FINDINGS/IMPRESSION: : Moderately displaced complete supracondylar humeral fracture. Moderate joint effusion and dorsal soft tissue swelling and edema. Electronically Signed by:ESAU SOLER MD Date & Time: 01/06/25642 Dictated by: ESAU SOLER MD Dictation date and time: 01/06/25642 Primary Care Provider: NO PRIMARY CARE PROVIDER cc: CINTHIA LAM MD ~ Medical Decision Making Additional info obtained from: old records Findings The patient presents to the emergency room with elbow pain and swelling after a fall, the patient's plain film imaging was reviewed by myself a imaging shows a supracondylar fracture with significant soft tissue swelling and no evidence of a dislocation impression his supracondylar distal humerus fracture. The kush obregon's chest x-ray was reviewed by myself it additionally shows a normal cardiac silhouette normal mediastinum and normal bony structures. I have reviewed the radiologist's interpretations have both films the patient's preop labs and EKG were reviewed by me and they are unremarkable. The case was discussed with the orthopedic surgeon the patient has required narcotic pain medication to include morphine here in the emergency department she is requesting admission hand the orthopedic surgeon is amenable to having the patient admitted for surgery. The patient's prior hospitalizations have been reviewed case has been discussed with the hospitalist the patient will be admitted to the hospitalist. Patient's EKG was interpreted as a sinus rhythm rate of 87 with a normal axis patient has a right bundle-branch block and nonspecific ST abnormalities the patient's EKG was interpreted by me as being an normal EKG the time of the EKG was 746 Departure Admitted to Inpatient Unit: yes, to hospitalist Impression: Primary Impression: Fracture of humerus Qualified Codes: S42.412A - Displaced simple supracondylar fracture without intercondylar fracture of left humerus, initial encounter for closed fracture Referrals: NO PRIMARY CARE PROVIDER (PCP) Signature Scribe Signature: no scribe Attestation: The note accurately reflects work and decisions made by me.Bismark Schaefer MD 01/08/25 02:34 BISMARK SCHAEFER MD Jan 06, 2025 06:45
[2025-01-06] MEDS: ketorolac trometh 15mg/ml vial 15 MG/ML ML IM ONE (07:06)
[2025-01-06] MEDS: oxyCODONE/APAP 5-325mg tablet PO ONE (07:06)
--- NOTE | 2025-01-06 07:48 | ELECTROCARDIOGRAPH REPORT ---
[facility] Test Date: 2025-01-06 Test Time: 07:46:25 Pat Name: ERNESTINA PIERRE Department: [facility]- Patient ID: [facility]-[id number] Room: [place] [address] Gender: F Supervisor Of Communications: : 1965 Requested By: BISMARK SKAGGS Order Number: [id number] Reading MD: Dr. Bismark Skaggs Measurements Intervals Dennard Rate: 87 P: 0 DC: 0 QRS: 86 QRSD: 141 T: 61 QT: 400 QTc: 482 Interpretive Statements Sinus rhythm Right bundle branch block Artifact in lead(s) I,III,aVR,aVL,aVF Electronically Signed On 01-08-2025 1:13:[address] Bismark Skaggs Please click the below link to view image of tracing.
[2025-01-06 08:04] LABS: MEAN PLATELET VOLUME 7.6 FL (7.4-10.4); RED CELL DISTRIBUTION WIDTH 18.9 % (11.5-14.5)
[2025-01-06 08:16] LABS: INR 1.0 INR
[2025-01-06 08:23] LABS: CREATININE 1.46 MG/DL (0.40-0.90); TOTAL CARBON DIOXIDE 20.3 MMOL/L (24-32); eCRCL 37 ML/MIN; eGFR 37 ML/MIN
--- NOTE | 2025-01-06 08:30 | RADIOLOGY REPORT ---
CHEST RADIOGRAPH Indication: pre op, pain Technique: Single frontal view of the chest was obtained COMPARISON: DI CHEST,SINGLE VIEW on DOS: 10/12/24, DI CHEST,SINGLE VIEW on DOS: 06/10/23 FINDINGS: Lines and Tubes: None Lungs: Clear Pleura: No effusion. No pneumothorax. Cardiomediastinal contours: Unremarkable Bones: Unremarkable IMPRESSION: No acute disease.
[2025-01-06] MEDS: morphine 10mg/ml inj. IV ONE (08:43)
[2025-01-06] MEDS ORDERED: HYDROcodone/acetaminophen 5mg/325mg tablet PO PRN (08:45)
[2025-01-06] MEDS ORDERED: ondansetron 4mg rapidly disintigrating tab PO PRN (08:45)
[2025-01-06] MEDS ORDERED: mag hydrox/Alum hydrox/simeth 30ml oral suspension PO PRN (08:45)
[2025-01-06] MEDS ORDERED: magnesium sulf-water 2g/50mL 50 ML IV PRN (08:45)
[2025-01-06] MEDS ORDERED: ondansetron/PF 4mg/2ml inj IV PRN (08:45)
[2025-01-06] MEDS ORDERED: hydrALAZINE 20mg/ml inj. IV PRN (08:45)
[2025-01-06] MEDS ORDERED: potassium Cl 40MEQ/1/2NS 520ml 520 ML IV PRN (08:45)
[2025-01-06] MEDS ORDERED: magnesium sulf-water 4G/100mL 100 ML IV PRN (08:45)
[2025-01-06] MEDS ORDERED: potassium Cl 20 mEq SR tablet PO PRN ×2 (08:45)
--- NOTE | 2025-01-06 10:41 | HISTORY AND PHYSICAL ---
History & Physical Providers to ~ History of Present Illness Reason for Admit\Complaint: Left humeral fracture History of Present Illness Trista Painter is a 59-year old female past medical history of hypertension, systolic heart failure, 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 Patient states she struck the left side of her face as well. Patient denies prior AK/CAD, CVA, cardiac arrhythmia, DVT/PE, or GIB. Patient denies loss of consciousness, chest pain, palpitations, shortness of breath, abdominal pain, n/v/d. Initial diagnostic findings were notable for left forearm x-ray revealing moderate displaced complete supracondylar humeral fracture. Case was consulted with orthopedic surgeon Deuce Nicolas. Patient is to be admitted for further workups and surgical intervention. Allergies: Coded Allergies: Heparin Analogues (Verified Allergy, Unknown, 10/12/24) prochlorperazine edisylate (Verified Allergy, Unknown, HALLUCINATIONS, 10/12/24) prochlorperazine maleate (Verified Allergy, Unknown, HALLUCINATIONS, 10/12/24) Home Medications Home Medications Active Multi Vitamin Daily (Multivitamin) 1 Each Tablet 1 Tab PO DAILY 30 Days Folic Acid* (Folic Acid) Y Tab 1 Tab PO DAILY 30 Days Vitamin B-1 (Thiamine HCl) 50 Mg Tablet 2 Tab PO DAILY 30 Days Chlordiazepoxide HCl 25 Mg Capsule 50 Mg PO DAILY 2 Days Reported Quetiapine Fumarate 50 Mg Tablet 1 Tab PO HS Bupropion Xl (Bupropion HCl) 300 Mg Tab.er.24h 1 Tab PO DAILY Carvedilol 3.125 Mg Tablet 1 Tab PO DAILY Nifedipine Er* (Nifedipine) 30 Mg Tab.er2.24 1 Tab PO DAILY Lisinopril 20 Mg Tablet 1 Tab PO DAILY Duloxetine HCl 60 Mg Capsule. 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 Substance abuse Hx Chronic alcoholism Hypertension AFib RVR Past Surgical History Surgical History Comment Gastric bypass next twice Partial colectomy Family History Family History: FH: HTN (hypertension) Past Social History Social History Comment Alcohol: Denies Tobacco: Denies Illicit drug use: Denies Living situation: Lives at home with spouse ROS ROS Other than positives in HPI, all 14 review of systems are negative Exam Vitals: Vital Signs Date Time Temp Pulse Resp B/P (MAP) Pulse Ox O2 Delivery O2 Flow Rate FiO2 01/06/25 10:12 18 01/06/25 09:00 82 140/67 (91) 95 0 01/06/25 06:09 96.3 General: Generalized weakness, A&Ox 3, NAD HEENT: Normocephalic, PERRLA Neck: Supple, trachea midline, no JVD Chest: Clear to auscultation bilaterally Cardiovascular: RRR, S1&S2 Abdomen: Soft and nontender Extremities: No cyanosis/clubbing/or edema Central Nervous System: CN II-XII intact, no focal deficits Musculoskeletal: No paraspinal muscle tenderness, no muscle spasm Skin: Warm and intact Diagnostic Data Last Recorded Lab Results: 01/06/25 0755 01/06/25 0755 Diagnostic Data: Laboratory Tests Test 01/06/25 07:55 Prothrombin Time 10.0 SECONDS (9.0-12.0) INR International Normalized Ratio 1.0 INR Coagulation Comments Additional Plan Assessment & Plan Mechanical fall, witnessed Fracture, left humerus -x-ray revealing moderate displaced complete supracondylar humeral fracture -case consulted with orthopedic surgeon Dr. Quinones, OR likely 01/08, start supportive care Metabolic acidosis Prerenal BROOKS on CKD 2/2 dehydration/vasomotor nephropathy Hyponatremia CKD, stage 3 -follow urine anion gap PAF, CVR, CHADS-VASc 3 Hypertension Chronic systolic heart failure Gastric bypass -CXR negative, no clinical signs of fluid overload -prn hydralazine, pending med rec DVT/VTE prophylaxis: Eliquis Code status: Full code I spent a total of 35 minutes discussing Advanced Care Planning measures with the patient. Advance care planning: Discussed with patient the importance of advance care planning in case of emergent situation. We discussed various resuscitative measures/ ACP with the patient at the time of admission. Patient voiced understanding and patient has decided on a full code status. Date of Service: Jan 06, 2025 Billing Provider: MARCO A BLANTON Common Visit Codes: [id number] INP/OBS CARE (HIGH) Secondary Visit Codes: [id number] CARE PLAN 30 MINUTES MARCO A BLANTON Jan 06, 2025 10:41
--- NOTE | 2025-01-06 11:23 | CONSULTATION REPORT ---
History of Present Illness Providers to CC ~ Reason for Admit\Admit Dx: Left humeral fracture Refering MD: Abdulaziz Weaver NP History of Present Illness The patient is a 59-year-old woman who suffered a witnessed mechanical fall injuring her left elbow. She also suffered some facial bruises but no other injuries. She denies syncopal episode dyspnea this or chest pain. Her main complaint is elbow pain. She denies numbness into the fingers. She had her shoulder or neck pain Allergies: Coded Allergies: Heparin Analogues (Verified Allergy, Unknown, 10/12/24) prochlorperazine edisylate (Verified Allergy, Unknown, HALLUCINATIONS, 10/12/24) prochlorperazine maleate (Verified Allergy, Unknown, HALLUCINATIONS, 10/12/24) Home Medications Home Medications Active Multi Vitamin Daily (Multivitamin) 1 Each Tablet 1 Tab PO DAILY 30 Days Folic Acid* (Folic Acid) Y Tab 1 Tab PO DAILY 30 Days Vitamin B-1 (Thiamine HCl) 50 Mg Tablet 2 Tab PO DAILY 30 Days Chlordiazepoxide HCl 25 Mg Capsule 50 Mg PO DAILY 2 Days Reported Quetiapine Fumarate 50 Mg Tablet 1 Tab PO HS Bupropion Xl (Bupropion HCl) 300 Mg Tab.er.24h 1 Tab PO DAILY Carvedilol 3.125 Mg Tablet 1 Tab PO DAILY Nifedipine Er* (Nifedipine) 30 Mg Tab.er2.24 1 Tab PO DAILY Lisinopril 20 Mg Tablet 1 Tab PO DAILY Duloxetine HCl 60 Mg Capsule. 1 Cap PO DAILY Past Family History Family History: FH: HTN (hypertension) Physical Exam Last Vital Signs Recorded: Temperature: 96.3, Source: Temporal, Heart Rate: 82, Respiratory Rate: 18, BP: 140/67, Pulse Oximetry: 95, Weight: 56.810 General Appearance: alert, no apparent distress EENT: PERRL/EOMI Neck: normal inspection Respiratory: lungs clear Chest: no accessory muscle use Cardiovascular: normal peripheral pulses Extremities The left arm is in a splint. A by ER report the skin is intact. She is moving her fingers well and states no deficit to sensation especially on the small finger. The hand and wrists are nontender. The shoulder is nontender. Results Results/Orders Results/Orders X-rays show comminuted supracondylar humerus fracture with extension into the ulnohumeral joint. Diagram Lab Result Diagram: 01/06/25 0755 01/06/25 0755 Assessment/Plan Problems/Diagnosis: (1) Supracondylar fracture of humerus, closed Additional Plan We will obtain CT scan to specify the amount of comminution and fragmentation for operative planning. Surgery will be scheduled for Wednesday a.m.. It is discussed with the patient and her the nature of the injury and need for surgery. We also discussed the risks and benefits and potential complications which include but are not limited to infection, bleeding, stiffness, hardware pain, nerve or vessel damage and need for hardware removal at a later date. They agreed to proceed. Problem Qualifiers (1) Supracondylar fracture of humerus, closed: Qualified Codes: S42.412A - Displaced simple supracondylar fracture without intercondylar fracture of left humerus, initial encounter for closed fracture AMNA CABRERA Jr., MD Jan 06, 2025 11:23
[2025-01-06] MEDS: normal saline 1000ml 1,000 ML IV SCH (12:00)
[2025-01-06] MEDS: HYDROcodone/acetaminophen 10/325mg tab PO PRN (12:44)
[2025-01-06] MEDS: carvedilol 6.25mg tablet PO ONE (12:49)
[2025-01-06] MEDS ORDERED: HYDR12.55 PO (13:09)
[2025-01-06] MEDS ORDERED: DULO20CA18 PO (13:11)
[2025-01-06 15:16] LABS: LEUKOCYTE ESTERASE ,URINE NEGATIVE (Neg); NITRITES, URINE NEGATIVE (Neg); OCCULT BLOOD,URINE NEGATIVE (Neg)
[2025-01-06 15:22] LABS: UA COLLECTION TYPE NON-SPECIFIED
[2025-01-06 15:26] LABS: URINE AMPHETAMINE SCREEN NEGATIVE (Neg); URINE BARBITUATE SCREEN NEGATIVE (Neg); URINE BENZODIAZEPINES SCREEN NEGATIVE (Neg); URINE CANNABINOID SCREEN NEGATIVE (Neg); URINE COCAINE SCREEN NEGATIVE (Neg); URINE METHADONE SCREEN NEGATIVE (Neg); URINE OPIATE SCREEN POSITIVE (Neg); URINE PHENCYCLIDINE SCREEN NEGATIVE (Neg)
--- NOTE | 2025-01-06 16:07 | RADIOLOGY REPORT ---
INDICATION: left distal humerus fracture COMPARISON: DI FOREARM,INCL.ONE JOINT on DOS: 01/06/25 TECHNIQUE: CT of the left upper extremity was performed without contrast. Volume transverse images w ere obtained and reconstructed in multiple planes using bone and soft tissue algorithms. Radiation Dose Information: CT Dose: CTDI volume is 22.4 mGy. Dose-length product is 537 mGy*cm FINDINGS: No evidence of traumatic dislocation. Displaced acute traumatic fracture of the left distal humerus. Small amount of blood products are seen adjacent to the fracture deformity. Small elbow effusion is seen. IMPRESSION: 1. Displaced acute traumatic fracture of the left distal humerus. 2. Small amount of blood products are seen adjacent to the fracture deformity 3. Small elbow effusion is seen. All CT scans at this medical facility are performed using dose modulation techniques as appropriate t o a performed exam including the following: Automated exposure control was utilized; adjustment of th e MA and/or KV according to patient size; and use of iterative reconstruction technique.
[2025-01-06] MEDS: ringers solution, lacted 1,000 ML IV SCH (17:14)
[2025-01-06] MEDS: HYDROmorphone/PF 0.2 MG/ML SYRINGE IV PRN ×2 (17:14→19:34)
[2025-01-06 18:49] LABS: PRO BRAIN NATRIURETIC PEPTIDE 366 PG/ML (0-125)
[2025-01-06] MEDS: K and/or MAG REPLACEMENT MC SCH (19:19)
[2025-01-06] MEDS: docusate sod 100mg capsule PO SCH (19:47)
[2025-01-06] MEDS: carvedilol 6.25mg tablet PO SCH (19:48)
[2025-01-06] MEDS ORDERED: heparin, porcine 5000 units/ml vial SQ SCH (20:00)
[2025-01-06] MEDS ORDERED: QUET25TA PO (20:01)
[2025-01-07] MEDS: HYDROmorphone inj. 0.5 MG/0.5 ML DISP.SYRIN IV PRN (00:08)
[2025-01-07 05:57] LABS: MEAN PLATELET VOLUME 8.3 FL (7.4-10.4); RED CELL DISTRIBUTION WIDTH 19.3 % (11.5-14.5)
[2025-01-07 06:13] LABS: % IRON SATURATION 8 % (11-46)
[2025-01-07 06:32] VITALS: BP 131/74; PULSE 77; RESP 15; TEMP 97.4; O2SAT 97
[2025-01-07 06:56] LABS: CREATININE 0.94 MG/DL (0.40-0.90); PRO BRAIN NATRIURETIC PEPTIDE 371 PG/ML (0-125); TOTAL CARBON DIOXIDE 22.1 MMOL/L (24-32); eCRCL 57 ML/MIN; eGFR 61 ML/MIN
[2025-01-07] MEDS ORDERED: glucagon, human recombinant 1mg kit SUBCUT PRN (08:15)
[2025-01-07] MEDS ORDERED: dextrose 50%-water 50ml dispensing syringe IV PRN ×2 (08:15)
[2025-01-07] MEDS ORDERED: DEXTROSE 15 GM of carb/4 tabs (each vial/BOTTLE has 4 tablets) PO PRN ×2 (08:15)
[2025-01-07 09:53] VITALS: BP_SYST 137; BP_SYST 68; BP_DIAS 74; PULSE 75; RESP 16; TEMP 98.4; O2SAT 98
--- NOTE | 2025-01-07 11:19 | PROGRESS NOTE ---
Daily Progress Note Providers to CC ~ Antibiotic Timeout Antibiotic Ordered?: No Subjective No acute events overnight. Patient examined at bedside. No new complaints. Patient denies chest pain, sob, palpitations, abdominal pain, n/v/d. Vss, labs notable for downtrending creatinine on IVF. OR tomorrow. Objective Vital Signs Date Time Temp Pulse Resp B/P (MAP) Pulse Ox O2 Delivery O2 Flow Rate FiO2 01/07/25 10:20 17 01/07/25 09:53 98.4 75 68/74 (72) 98 Room Air 01/06/25 09:00 0 Result Diagram: 01/07/25 0505 01/07/25 0505 Physical Exam General: Generalized weakness, A&Ox 3, NAD HEENT: Normocephalic, PERRLA Neck: Supple, trachea midline, no JVD Chest: Clear to auscultation bilaterally Cardiovascular: RRR, S1&S2 GI: Soft and nontender Extremities: Tenderness of left forearm and elbow with palpation PASSPORT SUPPORT ASSOCIATE: CN II-XII intact, no focal deficits Musculoskeletal: No paraspinal muscle tenderness, no muscle spasm Skin: Warm and intact Coagulation Studies Laboratory Tests Test 01/06/25 07:55 Prothrombin Time 10.0 SECONDS (9.0-12.0) INR International Normalized Ratio 1.0 INR Coagulation Comments Problem\Assessment\Plan Assessment & Plan Mechanical fall, witnessed Fracture, left humerus -x-ray revealing moderate displaced complete supracondylar humeral fracture -case consulted with orthopedic surgeon Dr. Quinones, OR likely 01/08, start supportive care Metabolic acidosis Prerenal BROOKS on CKD 2/2 dehydration/vasomotor nephropathy Hyponatremia CKD, stage 3 -urine anion gap<0, Cr downtrending with IVF PAF, CVR, CHADS-VASc 3 Hypertension Chronic systolic heart failure Gastric bypass -CXR negative, no clinical signs of fluid overload -prn hydralazine, pending med rec DVT/VTE prophylaxis: Eliquis Code status: Full code Date of Service: Jan 07, 2025 Billing Provider: MARCO A BLANTON Common Visit Codes: [id number] INP/OBS CARE(HIGH) MARCO A BLANTON Jan 07, 2025 11:19
[2025-01-07] MEDS ORDERED: INSULIN LISPRO 100 UNIT/ML INSULN.PEN MULTI-DOSE SQ SCH (12:00)
[2025-01-07 18:00] VITALS: BP 174/85; PULSE 86; RESP 16; TEMP 97.4; O2SAT 99
[2025-01-07 20:30] VITALS: RESP 16; O2SAT 99
[2025-01-07 22:00] VITALS: BP 107/50; PULSE 66; RESP 15; TEMP 97.4; O2SAT 98
[2025-01-08] VITALS (23 sets, daily range): BP systolic 114–197; BP diastolic 60–107; PULSE 16–113; RESP 10–18; TEMP 96.9–98.5; O2SAT 96–100
[2025-01-08 06:08] LABS: MEAN PLATELET VOLUME 8.2 FL (7.4-10.4); RED CELL DISTRIBUTION WIDTH 19.8 % (11.5-14.5)
[2025-01-08 06:37] LABS: CREATININE 0.79 MG/DL (0.40-0.90); TOTAL CARBON DIOXIDE 23.2 MMOL/L (24-32); eCRCL 68 ML/MIN; eGFR 74 ML/MIN
[2025-01-08 06:38] LABS: PLATELET ESTIMATE NORMAL
[2025-01-08] MEDS ORDERED: cloNIDine hcl/PF 100mcg/ml inj ONE (07:28)
[2025-01-08] MEDS ORDERED: BUPIVAcaine 0.5% inj/PF 0 ML ONE (08:00)
[2025-01-08] MEDS: ceFAZolin 2gm/dext,iso 50mL 50 ML IV ONE (08:07)
[2025-01-08] MEDS ORDERED: HYDROmorphone/PF 0.2 MG/ML SYRINGE IV PRN (08:15)
[2025-01-08] MEDS ORDERED: labetalol 20mg/4ml (5mg/ml) syringe IV PRN (08:15)
[2025-01-08] MEDS ORDERED: ondansetron/PF 4mg/2ml inj IV PRN (08:15)
[2025-01-08] MEDS ORDERED: fentaNYL/PF 50MCG/1 ML 2ML syringe ONE (08:21)
[2025-01-08] MEDS ORDERED: midazolam 1 mg/ML 2ml injection ONE (08:22)
[2025-01-08] MEDS ORDERED: fentaNYL /PF 50mcg/ml 5ml ampule ONE (09:10)
[2025-01-08] MEDS ORDERED: ondansetron/PF 4mg/2ml inj ONE (09:10)
[2025-01-08] MEDS ORDERED: ROPIVAcaine 0.5% (5mg/ml) 30ml vial ONE (09:10)
[2025-01-08] MEDS ORDERED: propofol inj 20 ML IV ONE (09:10)
[2025-01-08] MEDS ORDERED: rocuronium 10mg/ml inj IV ONE (09:10)
[2025-01-08] MEDS ORDERED: dexamethasone sod phosphate 4mg/ml inj. ONE (09:10)
[2025-01-08] MEDS ORDERED: LIDOcaine 1%/PF 5ML 10 MG/ML VIAL ONE ×2 (09:10)
[2025-01-08] MEDS ORDERED: glycopyrrolate 0.2mg/ml inj ONE (10:28)
--- NOTE | 2025-01-08 10:55 | OPERATIVE REPORT ---
Operative Report Providers to ~ Date of Procedure: Jan 08, 2025 Pre-Operative Diagnosis: left supracondylar humerus fracture, closed Post-Operative Diagnosis SAME as PRE-Op Procedure Performed open reduction internal fixation left supracondylar humerus fracture Surgeon: Deuce Quinones MD Merchant Tailor None Anesthesiologist: Meeta Chicas Type of Anesthesia: Regional Findings: Scalene block with a general anesthetic given Prosthetics\Implants used: Bone bridge supracondylar humerus plate x2 and olecranon plate Estimated Blood Loss: 25 mL Specimen Removed: None Description of Procedure: The patient is a 59-year-old woman who suffered a mechanical fall several days ago injuring her left arm. She had a comminuted distal humerus fracture with displacement. She denied any nerve deficit. Surgery is indicated to stabilize fracture. Risks and benefits were discussed with the patient and her . The main risks of this type of procedure is hardware pain but there was also possibility of nerve or vessel damage numbness in the fingers stiffness and failure to heal. She agreed to proceed. After the anesthetic was given in the operating room she was placed in the right lateral decubitus position on the operating bed and held in place. The left arm was prepped and draped in usual manner. A tourniquet was placed on the upper arm and inflated. Time-out procedure was performed and the posterior incision was made over the elbow. An osteotomy was made in the olecranon and the triceps and tip of the olecranon were reflected proximally. The fracture fragments were identified and there was mainly to fragments with a small amount of lateral comminution. Bone clamps were used to reduce the fracture fragments under fluoro and the K-wires were used to provisionally hold it in place. The posterolateral plate was placed 1st and affixed proximally and distally. The ulnar nerve was then identified and transposed anteriorly. Next the medial plate was placed and once positioned properly was affixed with screws proximally and distally. Fluoro imaging was used throughout the case to check position of the reduction and the placement of the hardware. Once this was done thorough irrigation was done and the olecranon was repaired using a standard posterior plate and screws. The incision was then irrigated and closed in layers after tacking down soft tissue to keep the ulnar nerve from traveling posteriorly. The tourniquet was released and then the hand perfused well with no excessive bleeding [place] were used on the skin and a soft dressing was applied. A hinged elbow brace was then placed locked in 90. The patient was then awakened and taken to the recovery room in stable condition. The DEUCE QUINONES Jr., MD Jan 08, 2025 10:55
[2025-01-08] MEDS: acetaminophen 1,000mg/100ml IV 100 ML IV PRN (11:00)
[2025-01-08] MEDS: morphine 4 MG/ML inj SYRINge IV PRN (11:08)
[2025-01-08] MEDS: HYDROmorphone/PF 0.2 MG/ML SYRINGE IV PRN (11:17)
[2025-01-08] MEDS: hydrALAZINE 20mg/ml inj. IV PRN (11:29)
--- NOTE | 2025-01-08 11:35 | RADIOLOGY REPORT ---
CLINICAL INDICATION: orif distal humerus TECHNIQUE: 2 radiographic views of the left humerus were obtained. Comparison: CT CT UPPER EXTREMITIES on DOS: 01/06/25, DI FOREARM,INCL.ONE JOINT on DOS: 01/06/25 FINDINGS/IMPRESSION: There is no evidence of acute fracture or dislocation. Postsurgical changes are visualized in the left humerus.
[2025-01-08] MEDS: ringers solution, lacted 1,000 ML IV SCH (12:49)
[2025-01-08] MEDS: magnesium Cl slow-release 64mg tablet PO PRN (13:48)
--- NOTE | 2025-01-08 14:35 | PROGRESS NOTE ---
Daily Progress Note Providers to CC ~ Antibiotic Timeout Antibiotic Ordered?: Yes If Yes, Indications: preop prophylaxis Subjective No acute events overnight. Patient examined at bedside. No new complaints, not in acute distress. Patient denies chest pain, sob, palpitations, abdominal pain, n/v/d. Vss, labs unremarkable. OR today, s/p open reduction internal fixation left supracondylar humerus fracture. Objective Vital Signs Date Time Temp Pulse Resp B/P (MAP) Pulse Ox O2 Delivery O2 Flow Rate FiO2 01/08/25 11:50 97 10 146/88 (107) 96 Room Air 0.0 01/08/25 10:41 97.3 Result Diagram: 01/08/2553801/08/25538 Physical Exam General: Generalized weakness, A&Ox 3, NAD HEENT: Normocephalic, PERRLA Neck: Supple, trachea midline, no JVD Chest: Clear to auscultation bilaterally Cardiovascular: RRR, S1&S2 GI: Soft and nontender Extremities: Edematous left upper extremity PLATING STRIPPER: CN II-XII intact, no focal deficits Musculoskeletal: No paraspinal muscle tenderness, no muscle spasm Skin: surgical incisions closed Coagulation Studies Laboratory Tests Test 01/06/25 07:55 Prothrombin Time 10.0 SECONDS (9.0-12.0) INR International Normalized Ratio 1.0 INR Coagulation Comments Problem\Assessment\Plan Assessment & Plan Mechanical fall, witnessed Fracture, left humerus -x-ray revealing moderate displaced complete supracondylar humeral fracture -case consulted with orthopedic surgeon Dr. Quinones, OR likely 01/08, start supportive care -01/08: OR today, s/p open reduction internal fixation left supracondylar humerus fracture Metabolic acidosis Prerenal BROOKS on CKD 2/2 dehydration/vasomotor nephropathy Hyponatremia CKD, stage 3 -urine anion gap<0, Cr downtrending with IVF PAF, CVR, CHADS-VASc 3 Hypertension Chronic systolic heart failure Gastric bypass -CXR negative, no clinical signs of fluid overload -prn hydralazine, pending med rec DVT/VTE prophylaxis: Eliquis Code status: Full code Date of Service: Jan 08, 2025 Billing Provider: MARCO A BLANTON Common Visit Codes: [id number] INP/OBS CARE(HIGH) MARCO A BLANTON Jan 08, 2025 14:35
[2025-01-08] MEDS: ketorolac trometh 15mg/ml vial 15 MG/ML ML IV SCH (19:52)
[2025-01-08] MEDS ORDERED: magnesium Cl slow-release 64mg tablet PO SCH (20:00)
[2025-01-08] MEDS: HYDROcodone/acetaminophen 10/325mg tab PO PRN (22:35)
[2025-01-09] VITALS (9 sets, daily range): BP systolic 115–156; BP diastolic 63–89; PULSE 78–125; RESP 12–18; TEMP 97.4–99.6; O2SAT 98–100
--- NOTE | 2025-01-09 07:10 | PROGRESS NOTE ---
Progress Note Ortho Ortho Post Op Day #: 1 Progress Note She has had some severe pain and swelling about the elbow. ROS ROS No new complaints Exam Exam: Wound clean and dry Exam Comments New dressing was applied today Problem/Assessment/Plan Problems/Diagnosis: (1) Supracondylar fracture of humerus, closed Additional Plan After changing the dressing as she felt a lot better and we will keep the arm elevated. With the will see how her pain management level is today. If it is acceptable she may be discharged to home today otherwise she may remain another day Results/Orders Result Diagram: 01/08/25 0539 01/08/25 0539 Problem Qualifiers (1) Supracondylar fracture of humerus, closed: Qualified Codes: S42.412A - Displaced simple supracondylar fracture without intercondylar fracture of left humerus, initial encounter for closed fracture AMNA CABRERA Jr., MD Jan 09, 2025 07:10
[2025-01-09] MEDS: magnesium hydroxide 30ml (MOM) UD suspension PO PRN (07:38)
[2025-01-09 09:44] LABS: MEAN PLATELET VOLUME 8.7 FL (7.4-10.4); RED CELL DISTRIBUTION WIDTH 20.4 % (11.5-14.5)
[2025-01-09 10:02] LABS: CREATININE 1.07 MG/DL (0.40-0.90); TOTAL CARBON DIOXIDE 24.0 MMOL/L (24-32); eCRCL 50 ML/MIN; eGFR 52 ML/MIN
[2025-01-09 10:12] LABS: PLATELET ESTIMATE NORMAL
[2025-01-09 14:31] LABS: MEAN PLATELET VOLUME 8.5 FL (7.4-10.4); RED CELL DISTRIBUTION WIDTH 20.2 % (11.5-14.5)
--- NOTE | 2025-01-09 17:59 | PROGRESS NOTE ---
Daily Progress Note Providers to CC ~ Antibiotic Timeout Antibiotic Ordered?: No Subjective Patient was seen in presence of nursing staff and patient's . Patient is able to ambulate. Patient does not feel that she is ready to go home today. Dr. Quinones evaluated the patient and he is willing to prescribe the pain medication at the time of discharge to the patient. Patient does not feel that one tablet of [place] 10-325 we will help her at home. He is currently on Dilaudid also for pain control. Patient also mentioned that Quetiapine is prescribed by her primary care physician for insomnia . Patient's hemoglobin and hematocrit low today . type and screen ordered blood transfusion 1 unit ordered today. No signs of active GI bleeding noticed . I discontinued IV fluid which can trigger dilutional effect and decreased hemoglobin and hematocrit. Stool occult blood testing ordered we will review labs again in a.m. Objective Vital Signs Date Time Temp Pulse Resp B/P (MAP) Pulse Ox O2 Delivery O2 Flow Rate FiO2 01/09/25 15:48 15 01/09/25 10:00 97.7 85 147/79 (101) 100 Room Air 01/08/25 11:50 0.0 Result Diagram: 01/09/25 1402 01/09/25 0836 General-patient not in any acute distress, alert awake oriented, chronically ill-appearing HEENT-atraumatic normocephalic, neck supple without elevated JVD, no thyromegaly or carotid bruit. No lymphadenopathy bilaterally. Eyes-no icterus or pallor seen in eyes Chest-clear to auscultation bilaterally, breathing nonlabored no tachypnea, no wheezing, no crepitation, no crackles. Heart-S1-S2 normal, regular heart rate no murmur Abdomen bowel sounds positive on auscultation, soft nondistended nontender no guarding, no rigidity Skin no active skin rash Neurology-grossly intact, nonfocal alert awake oriented Extremity- no pedal edema , able to ambulate. Using sling over left upper extremity Psychiatry - patient is not confused or agitated cooperated during physical examination Coagulation Studies Laboratory Tests Test 01/06/25 07:55 Prothrombin Time 10.0 SECONDS (9.0-12.0) INR International Normalized Ratio 1.0 INR Coagulation Comments Problem\\Assessment\\Plan Assessment & Plan Mechanical fall, witnessed Fracture, left humerus -x-ray revealing moderate displaced complete supracondylar humeral fracture -case consulted with orthopedic surgeon Dr. Quinones, OR likely 01/08, start supportive care -01/08: OR today, s/p open reduction internal fixation left supracondylar humerus fracture 01/09/25- Dr. Quinones evaluated the patient and he is willing to prescribe the pain medication at the time of discharge to the patient. Patient does not feel that one tablet of [place] 10-325 we will help her at home. she is currently on Dilaudid also for pain control. As per Dr Quinones " will see how her pain management level is today. If it is acceptable she may be discharged to home today otherwise she may remain another day" Metabolic acidosis Prerenal BROOKS on CKD 2/2 dehydration/vasomotor nephropathy Hyponatremia CKD, stage 3 -urine anion gap<0, Cr downtrending with IVF Stopped IV fluids today. PAF, CVR, CHADS-VASc 3 Hypertension Chronic systolic heart failure Gastric bypass -CXR negative, no clinical signs of fluid overload -prn hydralazine, pending med rec # Patient's hemoglobin and hematocrit low today . type and screen ordered blood transfusion 1 unit ordered today. No signs of active GI bleeding noticed . I discontinued IV fluid which can trigger dilutional effect and decreased hemoglobin and hematocrit. Stool occult blood testing ordered we will review labs again in a.m. DVT/VTE prophylaxis: Eliquis Code status: Full code Patient's current condition is guarded further management as recommended by monitoring specialist, possible discharge in a.m. if clinically stable Date of Service: Jan 09, 2025 Billing Provider: SARA DUGAN MD Common Visit Codes: [id number] INP/OBS CARE(HIGH) SARA DUGAN MD Jan 09, 2025 17:59
[2025-01-09] MEDS: pantoprazole 40mg Tablet.DR PO SCH (20:32)
[2025-01-10 06:00] VITALS: BP_SYST 119; BP_SYST 148; BP_DIAS 71; BP_DIAS 81; PULSE 102; PULSE 91; RESP 16; RESP 21; TEMP 96.8; TEMP 98.6; O2SAT 100; O2SAT 93
[2025-01-10 06:57] LABS: MEAN PLATELET VOLUME 8.3 FL (7.4-10.4); RED CELL DISTRIBUTION WIDTH 20.3 % (11.5-14.5)
[2025-01-10 07:02] LABS: MEAN PLATELET VOLUME 8.4 FL (7.4-10.4); RED CELL DISTRIBUTION WIDTH 20.1 % (11.5-14.5)
[2025-01-10 07:19] LABS: CREATININE 1.02 MG/DL (0.40-0.90); TOTAL CARBON DIOXIDE 21.4 MMOL/L (24-32); eCRCL 53 ML/MIN; eGFR 55 ML/MIN
[2025-01-10 08:42] VITALS: BP 192/100; PULSE 100; RESP 17; O2SAT 100
[2025-01-10] MEDS ORDERED: FOLI0.4T6 PO (09:01)
[2025-01-10] MEDS ORDERED: MULT-1249 PO (09:02)
[2025-01-10] MEDS ORDERED: THIA50TA10 PO (09:03)
[2025-01-10] MEDS ORDERED: HYDR-3972 PO ×2 (12:05→14:30)
--- NOTE | 2025-01-10 18:32 | DISCHARGE SUMMARY ---
Discharge Summary Providers to CC ~ Discharge Summary Admission Diagnosis: left supracondylar humerus fracture, closed Hospital Course DATE OF ADMISSION: 01/06/2025 DATE OF DISCHARGE: 01/10/2025 Discharge Diagnosis\\Comment: Mechanical fall with left humerus fracture Metabolic acidosis Acute kidney injury secondary to dehydration/possible vasomotor nephropathy Hyponatremia Paroxysmal atrial fibrillation Hypertension Chronic systolic heart failure Iron-deficiency anemia Operations\\Procedures: open reduction internal fixation left supracondylar humerus fracture Consultants: Dr. Wallace Quinones orthopedic surgeon Complications: None Condition on DC: Stable New Medications: Hydrocodone Bit/Acetaminophen (Hydrocodon-Acetaminophn 10-325 tablet) 10mg- 325mg Tablet 1 EACH PO Q6H PRN for severe pain (7-10), #12 TAB Continued Medications: Carvedilol (Carvedilol) 3.125 Mg Tablet 1 TAB PO DAILY Duloxetine HCl (Duloxetine HCl) 20 Mg Capsule.dr 1 CAP PO DAILY for 30 Days, #30 CAP 0 Refills Folic Acid* (Folic Acid*) 0.4 Mg Tablet 1 TAB PO DAILY for 30 Days, #30 TAB Hydrochlorothiazide (Hydrochlorothiazide) 12.5 Mg Tablet 1 TAB PO DAILY for 30 Days, #30 TAB 0 Refills Lisinopril (Lisinopril) 20 Mg Tablet 1 TAB PO DAILY Multivitamin (Multivitamin) 1 Each Tablet 1 TAB PO DAILY for 30 Days, #30 TAB 0 Refills Nifedipine ER* (Nifedipine Er*) 30 Mg Tab.er2.24 1 TAB PO DAILY Quetiapine Fumarate (Quetiapine Fumarate) 50 Mg Tablet 1 TAB PO HS Quetiapine Fumarate (Seroquel) 25 Mg Tablet 50 MG PO HS, TAB Thiamine HCl (Vitamin B-1) 50 Mg Tablet 2 TAB PO DAILY for 30 Days, #60 TAB 0 Refills Discharge Summary: The patient was admitted by Abdulaziz ROGERS with the following HPI:"Trista Painter is a 59-year old female past medical history of hypertension, systolic heart failure, 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 Patient states she struck the left side of her face as well. Patient denies prior AR/CAD, CVA, cardiac arrhythmia, DVT/PE, or GIB. Patient denies loss of consciousness, chest pain, palpitations, shortness of breath, abdominal pain, n/v/d. Initial diagnostic findings were notable for left forearm x-ray revealing moderate displaced complete supracondylar humeral fracture. Case was consulted with orthopedic surgeon Deuce Nicolas. Patient is to be admitted for further workups and surgical intervention." The patient went to the OR and had ORIF with Dr. Wallace Quinones orthopedic surgeon on the the patient was cleared by Physical therapy to be discharged on the . The patient had an acute kidney injury with a creatinine of 1.46 on admission this normalized on the and remained improved on the with a creatinine of 1.02 The patient does have paroxysmal atrial fibrillation remains on carvedilol. The patient has chronic systolic heart failure remains on lisinopril as well as carvedilol. The patient is has iron-deficiency anemia with a serum iron level of 29 and a % saturation of 8% the patient is recommended to take [id number] iron with vitamin-C for better absorption and a recheck a CBC in one-week Gen. No acute distress alert and oriented 4 Lungs clear to ascultation bilaterally, no wheezes rales or rhonchi appreciated Heart normal sinus rhythm no murmurs rubs or clicks noted Abdomen soft nontender bowel sounds are normoactive Lower extremities no clubbing cyanosis, nor edema appreciated bilaterally Left upper extremity postop brace is being worn the patient does have blisters in her left forearm. The patient felt ready to be discharged and was medically cleared to be discharged on 01/10/2025 The patient was seen and evaluated on day of discharge. Time spent on discharge 35 minutes The patient is to follow up with Dr. Wallace Quinones within two weeks The patient requested pain medication I discharge the patient with the 12 tablets of [place] 10/325 - 1 tablet every 6 hours prn severe pain. *Problems/Diagnosis: (1) Supracondylar fracture of humerus, closed Total Time Spent on D/C: > 30 Minutes Date of Service: Jan 10, 2025 Billing Provider: JAY HARDWICK DO Common Visit Codes: 59525-YOC/OBS DISCH DAY >30min Problem Qualifiers (1) Supracondylar fracture of humerus, closed: Qualified Codes: S42.412A - Displaced simple supracondylar fracture without intercondylar fracture of left humerus, initial encounter for closed fracture JAY HARDWICK DO Jan 10, 2025 18:29
== END 2025-01-10 12:39 | disposition home or self-care (01) | DRG 315 ==
LOC: ER 06:08 → ED HOLD 08:50 → ORTHO 4S 10:00
PROVIDERS: ADMIT Nurse Practitioner Family; ATTEND Nurse Practitioner Family
PROC: 0PSG04Z Reposition Left Humeral Shaft with Internal Fixation Device, Open Approach (ICD-10-PCS; principal; 2025-01-08 08:22)
PROC: 30233N1 Transfusion of Nonautologous Red Blood Cells into Peripheral Vein, Percutaneous Approach (ICD-10-PCS; 2025-01-09)
DX: S42.412A Displaced simple supracondylar fracture without intercondylar fracture of left humerus, initial encounter for closed fracture (principal); N17.0 Acute kidney failure with tubular necrosis; E87.20 Acidosis, unspecified; E87.1 Hypo-osmolality and hyponatremia; E86.0 Dehydration; D50.9 Iron deficiency anemia, unspecified; I48.0 Paroxysmal atrial fibrillation; I13.0 Hypertensive heart and chronic kidney disease with heart failure and stage 1 through stage 4 chronic kidney disease, or unspecified chronic kidney disease; G47.00 Insomnia, unspecified; N18.30 Chronic kidney disease, stage 3 unspecified; I50.22 Chronic systolic (congestive) heart failure; F10.20 Alcohol dependence, uncomplicated; W18.39XA Other fall on same level, initial encounter; Y93.89 Activity, other specified; Y92.89 Other specified places as the place of occurrence of the external cause; Y99.8 Other external cause status; Z88.8 Allergy status to other drugs, medicaments and biological substances; Z79.899 Other long term (current) drug therapy; Z98.84 Bariatric surgery status
CPT/HCPCS: 36415; 36430; 71045; 73060; 73090; 73200; 80048; 80053; 80305; 81003; 82436; 82728; 82948; 83540; 83550; 83735; 83880; 84133; 84300; 85008; 85025; 85027; 85610; 86885; 86900; 86901; 86920; 87081; 93005; 96361; 96372; 96374; 96375; 96376; 97110; 97116; 97161; 99285; A4565; A4618; A6223; A6253; A6258; A6446; A6449; A7000; C1713; G0378; J0131; J0360; J0735; J1100; J1171; J1885; J2250; J2270; J2274; J2405; J2704; J2710; J2795; J3010; J3490; J7030; J7040; J7120; P9016